=== PATIENT | male | born 1965 | race Caucasian/White ===

== ENCOUNTER 2021-09-23 07:14 | Inpatient (IN) | payer OTHER ==
[2021-09-23] MEDS ORDERED: SODIUM CHLORIDE 0.9% 1,000 ML IV STA (07:45)
[2021-09-23] MEDS ORDERED: SODIUM CHLORIDE 0.9% 500 ML 500 ML IV STA (07:45)
--- NOTE | 2021-09-23 07:52 | ED ---
Abdominal Pain HPI - General Chief Complaint: Abdominal Pain Stated Complaint: Constipation Time Seen by Provider: 09/23/21 07:26 Source: patient, RN notes reviewed Mode of arrival: ambulatory Limitations: no limitations - History of Present Illness Initial Comments: This a 55-year-old male presents emergency Department chief complaint abdominal pain. Patient states he had severe nausea and dizziness with the weekend. Patient states that resolved states has no appetite he's having increasing abdominal pain, distention. Patient states he feels very constipated he has been on MiraLAX with no relief. There is minimal that he does take pain meds bu t his been taking parents for over one year and said no constipation past. He denies any dysuria hematuria no fevers or chills no prior abdominal surgeries. Patient denies any chest pain or shortness breath at this time. - Related Data Home Medications Medication Instructions Recorded Confirmed HYDROcodone/APAP 7.5-325MG [[place] 1 tab PO QID 09/23/21 09/23/21 7.5-325] Losartan [Cozaar] 25 mg PO DAILY 09/23/21 09/23/21 Allergies Allergy/AdvReac Type Severity Reaction Status Date / Time No Known Allergies Allergy Verified 09/23/21 09:14 Review of Systems ROS Statement: Those systems with pertinent positive or pertinent negative responses have been documented in the HPI. ROS Other: All systems not noted in ROS Statement are negative. Past Medical History Past Medical History: Hypertension Additional Past Medical History / Comment(s): chronic back pain Past Surgical History: Back Surgery Past Psychological History: No Psychological Hx Reported Smoking Status: Never smoker Past Alcohol Use History: None Reported Past Drug Use History: Marijuana General Exam Limitations: no limitations General appearance: alert, in no apparent distress Head exam: Present: atraumatic, normocephalic, normal inspection Eye exam: Present: normal appearance, PERRL, EOMI. Absent: scleral icterus, conjunctival injection, periorbital swelling ENT exam: Present: normal exam, normal oropharynx, mucous membranes moist Neck exam: Present: normal inspection, full ROM. Absent: tenderness, meningismus, lymphadenopathy Respiratory exam: Present: normal lung sounds bilaterally. Absent: respiratory distress, wheezes, rales, rhonchi, stridor Cardiovascular Exam: Present: regular rate, normal rhythm, normal heart sounds. Absent: systolic murmur, diastolic murmur, rubs, gallop, clicks GI/Abdominal exam: Present: soft, tenderness, normal bowel sounds. Absent: distended, guarding, rebound, rigid Back exam: Absent: CVA tenderness (R), CVA tenderness (L) Neurological exam: Present: alert, oriented X3 Skin exam: Present: warm, dry, intact, normal color. Absent: rash Course Vital Signs 09/23/21 09/23/21 09/23/21 07:15 07:38 10:10 Temperature 98.1 F Pulse Rate 14 L 69 75 Respiratory 18 18 18 Rate Blood Pressure 128/89 152/108 134/83 O2 Sat by Pulse 97 97 98 Oximetry Medical Decision Making - Medical Decision Making 55-year-old presented for vague abdominal complaints. Patient CT shows probable metastatic cancer patient has no of history cancer. Patient be admitted for further workup and evaluation. - Lab Data Result diagrams: 09/23/21 07:53 09/23/21 07:53 Lab Results 09/23/21 09/23/21 09/23/21 Range/Units 07:53 07:53 07:53 WBC 8.5 (3.8-10.6) k/uL RBC 4.90 (4.30-5.90) m/uL Hgb 14.4 (13.0-17.5) gm/dL Hct 44.2 (39.0-53.0) % MCV 90.1 (80.0-100.0) fL MCH 29.3 (25.0-35.0) pg MCHC 32.5 (31.0-37.0) g/dL RDW 13.2 (11.5-15.5) % Plt Count 712 H (150-450) k/uL MPV 7.1 Neutrophils % 72 % Lymphocytes % 14 % Monocytes % 7 % Eosinophils % 3 % Basophils % 1 % Neutrophils # 6.1 (1.3-7.7) k/uL Lymphocytes # 1.2 (1.0-4.8) k/uL Monocytes # 0.6 (0-1.0) k/uL Eosinophils # 0.3 (0-0.7) k/uL Basophils # 0.1 (0-0.2) k/uL Sodium 137 (137-145) mmol/L Potassium 3.3 L (3.5-5.1) mmol/L Chloride 96 L (98-107) mmol/L Carbon Dioxide 30 (22-30) mmol/L Anion Gap 11 mmol/L BUN 10 (9-20) mg/dL Creatinine 1.08 (0.66-1.25) mg/dL Est GFR (CKD-EPI)AfAm 88 (>60 ml/min/1.73 sqM) Est GFR (CKD-EPI)NonAf 76 (>60 ml/min/1.73 sqM) Glucose 112 H (74-99) mg/dL Plasma Lactic Acid True (0.7-2.0) mmol/L Calcium 9.3 (8.4-10.2) mg/dL Total Bilirubin 0.8 (0.2-1.3) mg/dL AST 99 H (17-59) U/L ALT 36 (4-49) U/L Alkaline Phosphatase 481 H (38-126) U/L Total Protein 6.9 (6.3-8.2) g/dL Albumin 3.9 (3.5-5.0) g/dL Amylase 63 (30-110) U/L Lipase 48 (23-300) U/L Urine Color Dark Yellow Urine Appearance Cloudy (Clear) Urine pH 5.5 (5.0-8.0) Ur Specific [place] 1.035 (1.001-1.035) Urine Protein 1+ H (Negative) Urine Glucose (UA) Negative (Negative) Urine Ketones Negative (Negative) Urine Blood Negative (Negative) Urine Nitrite Negative (Negative) Urine Bilirubin 1+ H (Negative) Urine Urobilinogen 4.0 (<2.0) mg/dL Ur Leukocyte Esterase Negative (Negative) Urine RBC 1 (0-5) /hpf Urine WBC 2 (0-5) /hpf Ur Squamous Epith Cells 1 (0-4) /hpf Hyaline Casts 9 H (0-2) /lpf Urine Mucus Many H (None) /hpf 09/23/21 Range/Units 07:53 WBC (3.8-10.6) k/uL RBC (4.30-5.90) m/uL Hgb (13.0-17.5) gm/dL Hct (39.0-53.0) % MCV (80.0-100.0) fL MCH (25.0-35.0) pg MCHC (31.0-37.0) g/dL RDW (11.5-15.5) % Plt Count (150-450) k/uL MPV Neutrophils % % Lymphocytes % % Monocytes % % Eosinophils % % Basophils % % Neutrophils # (1.3-7.7) k/uL Lymphocytes # (1.0-4.8) k/uL Monocytes # (0-1.0) k/uL Eosinophils # (0-0.7) k/uL Basophils # (0-0.2) k/uL Sodium (137-145) mmol/L Potassium (3.5-5.1) mmol/L Chloride (98-107) mmol/L Carbon Dioxide (22-30) mmol/L Anion Gap mmol/L BUN (9-20) mg/dL Creatinine (0.66-1.25) mg/dL Est GFR (CKD-EPI)AfAm (>60 ml/min/1.73 sqM) Est GFR (CKD-EPI)NonAf (>60 ml/min/1.73 sqM) Glucose (74-99) mg/dL Plasma Lactic Acid True 2.0 (0.7-2.0) mmol/L Calcium (8.4-10.2) mg/dL Total Bilirubin (0.2-1.3) mg/dL AST (17-59) U/L ALT (4-49) U/L Alkaline Phosphatase (38-126) U/L Total Protein (6.3-8.2) g/dL Albumin (3.5-5.0) g/dL Amylase (30-110) U/L Lipase (23-300) U/L Urine Color Urine Appearance (Clear) Urine pH (5.0-8.0) Ur Specific [place] (1.001-1.035) Urine Protein (Negative) Urine Glucose (UA) (Negative) Urine Ketones (Negative) Urine Blood (Negative) Urine Nitrite (Negative) Urine Bilirubin (Negative) Urine Urobilinogen (<2.0) mg/dL Ur Leukocyte Esterase (Negative) Urine RBC (0-5) /hpf Urine WBC (0-5) /hpf Ur Squamous Epith Cells (0-4) /hpf Hyaline Casts (0-2) /lpf Urine Mucus (None) /hpf Disposition Clinical Impression: Metastatic cancer, Hepatic carcinoma, Intractable pain Disposition: ADMITTED IP TO THIS [facility] Condition: Fair Referrals: Nonstaff,Physician [Primary Care Provider] - 1-2 days Time of Disposition: 10:16
[2021-09-23 08:11] LABS: Basophils # (A) 0.1 k/uL (0-0.2); Basophils % (A) 1 %; Eosinophils # (A) 0.3 k/uL (0-0.7); Eosinophils % (A) 3 %; HCT 44.2 % (39.0-53.0); HGB 14.4 gm/dL (13.0-17.5); Lymphocytes # (A) 1.2 k/uL (1.0-4.8); Lymphocytes % (A) 14 %; MCH 29.3 pg (25.0-35.0); MCHC 32.5 g/dL (31.0-37.0); MCV 90.1 fL (80.0-100.0); Mean Platelet Volume 7.1; Monocytes # (A) 0.6 k/uL (0-1.0); Monocytes % (A) 7 %; Neutrophils # (A) 6.1 k/uL (1.3-7.7); Neutrophils % (A) 72 %; Platelet Count 712 k/uL (150-450); RDW 13.2 % (11.5-15.5); WBC 8.5 k/uL (3.8-10.6)
[2021-09-23 08:30] LABS: Albumin 3.9 g/dL (3.5-5.0); Appearance,Urine Cloudy (Clear); Bilirubin,Urine 1+ (Negative); Blood,Urine Negative (Negative); Calcium 9.3 mg/dL (8.4-10.2); Color,Urine Dark Yellow; Glucose,Urine (UA) Negative (Negative); Hyaline Casts,Urine 9 /lpf (0-2); Ketones,Urine Negative (Negative); Leukocyte Esterase,Urine Negative (Negative); Mucus,Urine Many /hpf; Nitrite,Urine Negative (Negative); PH, Urine 5.5 (5.0-8.0); Potassium 3.3 mmol/L (3.5-5.1); Protein,Urine 1+ (Negative); RBC,Urine 1 /hpf (0-5); Specific Gravity,Urine 1.035 (1.001-1.035); Squamous Epithelial Cell,Urine 1 /hpf (0-4); Total Bilirubin 0.8 mg/dL (0.2-1.3); Total Protein 6.9 g/dL (6.3-8.2); WBC,Urine 2 /hpf (0-5)
--- NOTE | 2021-09-23 08:45 | CT ---
EXAMINATION TYPE: CT abdomen pelvis wo con DATE OF EXAM: 09/23/2021 COMPARISON: None available HISTORY: Abdominal pain CT DLP: 447.8 mGycm Automated exposure control for dose reduction was used. TECHNIQUE: Helical acquisition of images was performed from the lung bases through the pelvis. FINDINGS: LUNG BASES: No significant abnormality is appreciated. LIVER/GB: Multiple variable sized hepatic focal lesions, highly concerning for extensive hepatic meta static disease. The largest conglomerate is seen in the left hepatic lobe measuring up to 11.3 cm. No dular outline of the liver which may suggest hepatic cirrhosis. Grossly unremarkable gallbladder. PANCREAS: Fatty infiltration of the pancreatic head. SPLEEN: No significant abnormality is seen. ADRENALS: No significant abnormality is seen. KIDNEYS: Grossly unremarkable kidneys. FREE AIR: No free air is visualized RETROPERITONEAL ADENOPATHY: Enlarged superior retroperitoneal lymph nodes measuring up to 11 mm. REPRODUCTIVE ORGANS: No significant abnormality is seen URINARY BLADDER: Markedly thickened urinary bladder wall with heterogeneity within. Underlying lesio n can't be excluded. Recommend correlation with urinalysis results including cytology. PELVIC ADENOPATHY: No pathologically enlarged pelvic lymph nodes. OSSEOUS STRUCTURES: L1 vertebral body collapse with suspected previous vertebroplasty of L1, please correlate clinically. No gross aggressive bone lesion. BOWEL: Questionable thickening of the gastroesophageal junction with significant lymphadenopathy at that location and along the gastrohepatic ligament measuring up to 2 cm in short axis diameter. No ev idence of gastric obstruction. Grossly unremarkable duodenum and small bowel. Scattered short segment s of mild colonic wall thickening, nonspecific. Recommend correlation with colonoscopy results. Otilia l appendix. OTHER: Increased densities along the left spermatic cord in the inguinal region, this could be due to prominent veins however metastatic nodules cannot be excluded. Scattered arterial atherosclerotic ca lcification. No sizable ascites. IMPRESSION: Multiple hepatic focal lesions consistent with hepatic metastatic disease. Slightly nodular outline o f the liver which may suggest hepatic cirrhosis. Underlying hepatocellular carcinoma can't be exclude d, for correlation with liver function tests, hepatic viral serology and alpha-fetoprotein level. Slightly thickened gastroesophageal junction and the most proximal portion of the stomach with adjace nt significant lymphadenopathy at that location and along the gastrohepatic ligament. Underlying prim sergey cancer at that location cannot be excluded. Recommend correlation with gastroscopy results and fu rther workup including PET scan assessment and tissue diagnosis. Other incidental findings and recomm endations as described above.
[2021-09-23] MEDS ORDERED: POTASSIUM CHLORIDE ER 20 MEQ TAB.ER PO STA (10:16)
[2021-09-23] MEDS ORDERED: ONDANSETRON 4 MG/2 ML VIAL IVP PRN (10:16)
[2021-09-23] MEDS ORDERED: HYDROmorphone 0.5 MG/0.5 ML SYRINGE IVP PRN (10:16)
[2021-09-23] MEDS ORDERED: NALOXONE 0.4 MG/ML 1 ML VIAL IV PRN (10:16)
[2021-09-23] MEDS ORDERED: LACTULOSE 20 GM/30 ML CUP PO PRN (11:19)
[2021-09-23] MEDS: PANTOPRAZOLE 40 MG/10 ML VIAL IVP SCH (11:36)
[2021-09-23] MEDS: SODIUM CHLORIDE 0.9% 1,000 ML IV SCH (11:44)
[2021-09-23] MEDS ORDERED: PREGABALIN 75 MG CAP PO PRN (11:51)
--- NOTE | 2021-09-23 12:03 | P.HPIM ---
History of Present Illness Pleasant 55-year-old male came in with complaints of epigastric abdominal discomfort nonspecific 6 tested in severity. 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 Patient had a CT of the abdomen which showed incidental finding of multiple masses in the liver along with a significant thickening of gastroesophageal junction, concerning for possible malignancy patient denied any history of gastroesophageal reflux disease, denied any smoking history. Patient is tearful, anxious because of these findings. REVIEW OF SYSTEMS: CONSTITUTIONAL: No fever, no malaise, no fatigue. HEENT: No recent visual problems or hearing problems. Denied any sore throat. CARDIOVASCULAR: No chest pain, orthopnea, PND, no palpitations, no syncope. PULMONARY: No shortness of breath, no cough, no hemoptysis. GASTROINTESTINAL: No diarrhea, no nausea, no vomiting. NEUROLOGICAL: No headaches, no weakness, no numbness. HEMATOLOGICAL: Denies any bleeding or petechiae. GENITOURINARY: Denies any burning micturition, frequency, or urgency. MUSCULOSKELETAL/RHEUMATOLOGICAL: Denies any joint pain, swelling, or any muscle pain. ENDOCRINE: Denies any polyuria or polydipsia. The rest of the 14-point review of systems is negative. PHYSICAL EXAMINATION: GENERAL: The patient is alert and oriented x3, not in any acute distress. Well developed, well nourished. HEENT: Pupils are round and equally reacting to light. EOMI. No scleral icterus. No conjunctival pallor. Normocephalic, atraumatic. No pharyngeal erythema. No thyromegaly. CARDIOVASCULAR: S1 and S2 present. No murmurs, rubs, or gallops. PULMONARY: Chest is clear to auscultation, no wheezing or crackles. ABDOMEN: Soft, nontender, nondistended, normoactive bowel sounds. No palpable organomegaly. MUSCULOSKELETAL: No joint swelling or deformity. EXTREMITIES: No cyanosis, clubbing, or pedal edema. NEUROLOGICAL: Gross neurological examination did not reveal any focal deficits. SKIN: No rashes. Assessment and plan -The epigastric abdominal pain patient has nonspecific abdominal pain may be related to gastritis or can be related to cancer mass. Pain management with 10 mg of [place] -Constipation secondary to opiates, will order senna lactulose as needed for constipation -Hypertension resume losartan -Incidental finding of metastatic lesions to the liver: Oncology was consulted -Thickening of gastroesophageal junction: Consult gastroenterology for possible biopsy -Hypokalemia potassium will be replaced -Dehydration mild acute renal failure secondary to poor by mouth intake continue with IV fluids. Replace electrolytes - DVT prophylaxis: Lovenox Past Medical History Past Medical History: Hypertension Additional Past Medical History / Comment(s): chronic back pain Past Surgical History: Back Surgery Past Psychological History: No Psychological Hx Reported Smoking Status: Never smoker Past Alcohol Use History: None Reported Past Drug Use History: Marijuana Medications and Allergies Home Medications Medication Instructions Recorded Confirmed Type HYDROcodone/APAP 7.5-325MG [[place] 1 tab PO QID 09/23/21 09/23/21 History 7.5-325] Losartan [Cozaar] 25 mg PO DAILY 09/23/21 09/23/21 History Allergies Allergy/AdvReac Type Severity Reaction Status Date / Time No Known Allergies Allergy Verified 09/23/21 09:14 Physical Exam Vitals: Vital Signs Temp Pulse Resp BP Pulse Ox 09/23/21 11:44 62 18 134/89 96 09/23/21 10:10 75 18 134/83 98 09/23/21 07:38 69 18 152/108 97 09/23/21 07:15 98.1 F 14 L 18 128/89 97 Intake and Output 09/22/21 09/23/21 09/23/21 22:59 06:59 14:59 Other: Weight 73.028 kg Results CBC & Chem 7: 09/23/21 07:53 09/23/21 07:53 Labs: Abnormal Lab Results - Last 24 Hours (Table) 09/23/21 09/23/21 09/23/21 Range/Units 07:53 07:53 07:53 Plt Count 712 H (150-450) k/uL Potassium 3.3 L (3.5-5.1) mmol/L Chloride 96 L (98-107) mmol/L Glucose 112 H (74-99) mg/dL AST 99 H (17-59) U/L Alkaline Phosphatase 481 H (38-126) U/L Urine Protein 1+ H (Negative) Urine Bilirubin 1+ H (Negative) Hyaline Casts 9 H (0-2) /lpf Urine Mucus Many H (None) /hpf
[2021-09-23 14:54] LABS: Hepatitis A Antibody IgM Nonreactive (Nonreactive); Hepatitis B Core IgM Nonreactive (Nonreactive); Hepatitis B Surface Antigen Nonreactive (Nonreactive); Hepatitis C IgG Antibody Nonreactive (Nonreactive)
[2021-09-23] MEDS: HYDROcodone/APAP 10-325MG 1 EACH TAB PO PRN ×2 (15:13→20:03)
[2021-09-23] MEDS ORDERED: PEG 3350-NA SULF,BICARB,CL/KCL 4,000 ML BOTTLE PO ONE (16:00)
[2021-09-23] MEDS: HYDROmorphone 0.5 MG/0.5 ML SYRINGE IVP PRN ×2 (16:25→21:53)
--- NOTE | 2021-09-23 16:54 | P.CONS ---
History of Present Illness - Reason for Consult Consult date: 09/23/21 Endoscopy for possible esophageal cancer Requesting physician: Krystina Gaitan - Chief Complaint abdominal pain, constipation - History of Present Illness This is a pleasant 55-year-old male who presented to the emergency department with complaints of abdominal pain and constipation over the last 2 weeks duration. Patient denies any significant medical history other than high blood pressure and chronic back pain and leg pain. He does take [place] for chronic pain and was scheduled to have an MRI done this Thursday to follow-up with a back surgeon. He states the pain was getting significant worse in the epigastric region he's had a decreased appetite as well over the last 2 weeks and came in for further evaluation. He had a CT of the abdomen and pelvis without contrast that showed multiple hepatic focal lesions consistent with hepatic metastatic disease. Slightly nodular outline of the liver which may suggest hepatic cirrhosis. Underlying hepatocellular carcinoma cannot be excluded. Slightly thickened gastroesophageal junction and the most proximal p ortion of the stomach with adjacent significant lymphadenopathy at that location along the gastrohepatic ligament. Underlying primary cancer at that location cannot be excluded. Recommend correlation with gastroscopy results further workup including PET scan assessments and tissue diagnosis. Gastroenterology was consulted for endoscopy to evaluate for possible esophageal cancer. He states he has had a colonoscopy approximately 7 years ago done in [place] he states at that time it was clear. He believes he may have had an EGD remote past. Denies any previous histories of ulcers. States that he gets occasional heartburn. Denies any nausea or vomiting. Does believe these had some weight loss due to decreased appetite however unsure of amount. Denies any previous history of alcohol abuse. Denies any history of underlying liver disease. Admitting labs WBC 8.5 hemoglobin 14 hematocrit 44 platelet count 712,000, sodium 137 potassium 3.3 BUN 10 creatinine 1.08 total bilirubin 0.8 AST 99 AST 36 alkaline phosphatase 481 tumor marker AFP 3.8 Review of Systems REVIEW OF SYSTEMS: CARDIOPULMONARY: No chest pain or shortness of breath. Gastrointestinal: Severe stabbing pain in the epigastric region. Decreased appetite with weight loss. No nausea or vomiting. No hematemesis, coffee- ground emesis. No rectal bleeding, or melena. Constipation, no bowel movement 2 weeks. GENITOURINARY: No dysuria or hematuria. MUSCULOSKELETAL: Reports normal range of motion., Joint pain. SKIN: No rashes. No jaundice. ENDOCRINE: No chills, fevers. Decreased appetite with weight loss. No polydipsia or polyuria. PSYCHIATRIC: Unremarkable. NEUROLOGY: No change in mental status. Denies dizziness, headache. ENT: Vision unremarkable. CONSTITUTIONAL: No recent weight loss. No fever, chills, night sweats. Past Medical History Past Medical History: Hypertension Additional Past Medical History / Comment(s): chronic back pain Past Surgical History: Back Surgery Past Psychological History: No Psychological Hx Reported Smoking Status: Never smoker Past Alcohol Use History: None Reported Past Drug Use History: Marijuana Medications and Allergies Home Medications Medication Instructions Recorded Confirmed Type HYDROcodone/APAP 7.5-325MG [[place] 1 tab PO QID 09/23/21 09/23/21 History 7.5-325] Losartan [Cozaar] 25 mg PO DAILY 09/23/21 09/23/21 History Allergies Allergy/AdvReac Type Severity Reaction Status Date / Time No Known Allergies Allergy Verified 09/23/21 09:14 Physical Exam Vitals: Vital Signs Temp Pulse Resp BP Pulse Ox 09/23/21 10:10 75 18 134/83 98 09/23/21 07:38 69 18 152/108 97 09/23/21 07:15 98.1 F 14 L 18 128/89 97 Intake and Output 09/22/21 09/23/21 09/23/21 22:59 06:59 14:59 Other: Weight 73.028 kg General appearance: The patient is alert, oriented, appears in no acute distress. HET: Head is normocephalic and atraumatic. Conjunctiva pink. Sclera anicteric. Neck: Supple without lymphadenopathy. Trachea midline. Heart: S1 S2. Regular rate and rhythm. Lungs: Clear to auscultation. Abdomen: Soft, epigastric tenderness, nondistended with bowel sounds. No guarding or rigidity. Skin: No rashes. No jaundice. Extremities: Normal skin color and turgor. No pedal edema. Neurological: No focal deficits. Alert and oriented x3. Results CBC & Chem 7: 09/23/21 07:53 09/23/21 07:53 Labs: Abnormal Lab Results - Last 24 Hours (Table) 09/23/21 09/23/21 09/23/21 Range/Units 07:53 07:53 07:53 Plt Count 712 H (150-450) k/uL Potassium 3.3 L (3.5-5.1) mmol/L Chloride 96 L (98-107) mmol/L Glucose 112 H (74-99) mg/dL AST 99 H (17-59) U/L Alkaline Phosphatase 481 H (38-126) U/L Urine Protein 1+ H (Negative) Urine Bilirubin 1+ H (Negative) Hyaline Casts 9 H (0-2) /lpf Urine Mucus Many H (None) /hpf Comments: CT of the abdomen and pelvis without contrast that showed multiple hepatic focal lesions consistent with hepatic metastatic disease. Slightly nodular outline of the liver which may suggest hepatic cirrhosis. Underlying hepatocellular carcinoma cannot be excluded. Slightly thickened gastroesophageal junction and the most proximal portion of the stomach with adjacent significant lymphadenopathy at that location along the gastrohepatic ligament. Underlying primary cancer at that location cannot be excluded. Recommend correlation with gastroscopy results further workup including PET scan assessments and tissue diagnosis. Assessment and Plan (1) Epigastric pain Narrative/Plan: 25-year-old male with no significant past medical history who presented to the emergency department with complaints of epigastric abdominal pain with constipation over the last 2 weeks duration. Patient states he's had decreased appetite he does have a history of chronic pain with his back and lower extremities and was going to be seeing a back surgeon. He does take [place] and does have some occasional constipation however never goes past for 5 days for bowel movement. States he's not had a bowel movement in 2 weeks. He's had severe stabbing pains in the epigastric region. No nausea or vomiting but again has had a decreased appetite and weight loss. He has had a prior EGD and col onoscopy. He states his EGD was remote, colonoscopy was approximately 7 years ago done in [place] and he states that it was a normal finding. He denies any previous history of liver disease. Denies any history of hepatitis, alcohol abuse or history of fatty liver disease. He had a CT of the abdomen and pelvis concerning for multiple liver lesions possible metastatic disease. CT also showed thickened gastroesophageal junction and most proximal portion of the stomach with adjacent significant lymphadenopathy that location and along the gastrohepatic ligament. Will proceed with EGD and colonoscopy with biopsies. Oncology on consult. Patient with normal AFP 3.8 Current Visit: Yes Status: Acute Code(s): R10.13 - EPIGASTRIC PAIN SNOMED Code(s): 87663908 (2) Constipation Current Visit: Yes Status: Acute Code(s): K59.00 - CONSTIPATION, UNSPECIFIED SNOMED Code(s): 10584387 (3) Abdominal pain Current Visit: Yes Status: Acute Code(s): R10.9 - UNSPECIFIED ABDOMINAL PAIN SNOMED Code(s): 50323313 (4) Liver lesion Narrative/Plan: oncology on consult. Proceeding with EGD and colonoscopy with biopsies. May consider liver biopsy. Current Visit: Yes Status: Acute Code(s): K76.9 - LIVER DISEASE, UNSPECIFIED SNOMED Code(s): 223049140 Plan: 1. Continue symptomatic and supportive care 2. Clear liquid diet, nothing by mouth after midnight 3. Protonix 40 mg twice a day 4. Bowel prep this evening 5. Will proceed with EGD and colonoscopy tomorrow. Procedure discussed with patient including risks and benefits. Patient willing to proceed. 6. Oncology on consult, appreciate their recommendations Thank you for this consultation, we will continue to follow. Dr. Inge Hilton I agree with the dictator's note, documented as a scribe by Nayeli Okeefe.
[2021-09-24] MEDS: HYDROmorphone 0.5 MG/0.5 ML SYRINGE IVP PRN ×4 (01:06→18:52)
[2021-09-24] MEDS: SODIUM CHLORIDE 0.9% 1,000 ML IV SCH ×2 (02:08→22:25)
[2021-09-24] MEDS: ENOXAPARIN 40 MG/0.4 ML SYRINGE SQ SCH (08:34)
[2021-09-24] MEDS: HYDROcodone/APAP 10-325MG 1 EACH TAB PO PRN ×2 (08:36→16:39)
[2021-09-24] MEDS: LOSARTAN 25 MG TAB PO SCH (08:36)
[2021-09-24] MEDS: PANTOPRAZOLE 40 MG/10 ML VIAL IVP SCH (08:37)
[2021-09-24] MEDS ORDERED: IV FLUID CONTINUATION 900 ML IV ONE (11:22)
[2021-09-24] MEDS ORDERED: PROPOFOL 10 MG/ML 20 ML VIAL IV ONE (11:24)
[2021-09-24] MEDS ORDERED: LIDOCAINE 2% INJ 20 MG/ML (2 ML VIAL) ONE (11:24)
--- NOTE | 2021-09-24 11:53 | P.PCN ---
Date of Procedure: 09/24/21 Procedure(s) Performed: Brief history: Patient is a pleasant 56-year-old white male admitted hospital with severe epigastric pain for the last 1 week duration. He has CT of the the abdomen and pelvis done yesterday that showed multiple lesions in the liver suspicious for metastasis and thickening of the GE junction Procedure performed: Esophagogastroduodenoscopy with biopsy Colonoscopy with snare polypectomy Preoperative diagnosis: Epigastric pain/multiple lesions in the liver suspicious for hepatic metastasis Change in bowel habits Anesthesia: MAC Procedure: After informed consent was obtained from the patient was brought into the endoscopy unit and IV sedation was administered by anesthesia under continuous monitoring. Initially upper endoscopy was done. The Olympus GF 160 video endoscope was inserted inserted into the mouth and esophagus intubated without any difficulty and was gradually advanced into the stomach and duodenum and carefully examined. The bulb and second part of the duodenum appeared normal. The scope was then withdrawn into the stomach adequately insufflated with air and upon careful examination the antrum and body, cardia and fundus appeared normal. The scope was then withdrawn into the esophagus. The GE junction was located at 40 cm to the incisors. There was a deep ulceration noted the GE junction and this extended into the distal esophageal ulcerated mass which was located at 38-40 cm from the incisors and multiple biopsies were done from the GE junction ulcer as well as from the distal esophageal mass. Rest of the esophagus appeared normal. Patient tolerated the procedure well. At this time the patient continued to remain sedation. Initial digital rectal examination was normal. Olympus CF 160 video colonoscope was then inserted into the rectum and gradually advanced to the cecum without any difficulty. Careful examination was performed as the scope was gradually being withdrawn. The prep was excellent. The cecum, ascending colon, transverse colon, descending colon, sigmoid colon and rectum appeared normal. There was a 5 mm polyp noted in the sigmoid colon was removed by snare polypectomy. Retroflexion was performed in the rectum and no lesions were noted. Patient tolerated the procedure well. Impression: 1. Upper endoscopy revealed ulcerated mass in the distal esophagus extending from 38-40 cm from the incisors and a deep GE junction ulcer status post multiple biopsies 2. Colonoscopy revealed 5 mm sigmoid polyp status post polypectomy Recommendations: Findings of this examination were discussed with the patient as well as his family. Await biopsy results. Diet will be advanced as tolerated. Obtain on cology consultation.
[2021-09-24 13:06] LABS: ALT 26 U/L (4-49); AST 82 U/L (17-59); African American GFR (CKD) >90 (>60 ml/min/1.73 sqM); Albumin 3.1 g/dL (3.5-5.0); Albumin/Globulin Ratio 1.2; Alkaline Phosphatase 327 U/L (38-126); Anion Gap 11 mmol/L; Blood Urea Nitrogen 7 mg/dL (9-20); Calcium 8.4 mg/dL (8.4-10.2); Carbon Dioxide 22 mmol/L (22-30); Chloride 104 mmol/L (98-107); Globulin 2.5 g/dL; Glucose 65 mg/dL (74-99); Non-African American GFR(CKD) >90 (>60 ml/min/1.73 sqM); Potassium 3.8 mmol/L (3.5-5.1); Sodium 137 mmol/L (137-145); Total Bilirubin 0.9 mg/dL (0.2-1.3); Total Protein 5.6 g/dL (6.3-8.2)
--- NOTE | 2021-09-24 16:19 | P.PN ---
Subjective Progress Note Date: 09/24/21 Pleasant 55-year-old male came in with complaints of epigastric abdominal discomfort nonspecific 6 tested in severity. Patient has been constipated for 2 weeks which is her main reason for patient to come to the hospital patient has been taking Clio that was prescribed by his picture painter for back pain because of the severe back pain patient has been taking this and has been constipated because of. Patient had a CT of the abdomen which showed incidental finding of multiple masses in the liver along with a significant thickening of gastroesophageal junction, concerning for possible malignancy patient denied any history of gastroesophageal reflux disease, denied any smoking history. Patient is tearful, anxious because of these findings. 09/24/2021 Patient evaluated today pending EGD/Colonoscopy. He resports ongoing epigastric discomfort. Endoscopy results reveal ulcerated mass in the distal esophagus extending from 38-40 cm from the incisors and a deep GE junction ulcer status post multiple biopsies. There is also a 5 mm sigmoid polyp that was removed. Acetaminophen to have improved up to 3.8, liver enzymes are stable. Hepatitis panel is nonreactive. Diet has been advanced, patient is pending consultation with oncology. He will be discharged tomorrow morning. He is afebrile, heart rate 78, blood pressure 124/68, 99% room air. Review of Systems Constitutional: Denied any fatigue denied any fever. Cardio vascular: denied any chest pain, palpitations Gastrointestinal: denied any nausea, vomiting, diarrhea, reports epigastric abdominal pain. Pulmonary: Denied any shortness of breath cough Neurologic denied any new focal deficits All inpatient medications were reviewed and appropriate changes in these medications as dictated in the interval history and assessment and plan. PHYSICAL EXAMINATION: GENERAL: The patient is alert and oriented x3, not in any acute distress. Well developed, well nourished. HEENT: Pupils are round and equally reacting to light. EOMI. No scleral icterus. No conjunctival pallor. Normocephalic, atraumatic. No pharyngeal erythema. No thyromegaly. CARDIOVASCULAR: S1 and S2 present. No murmurs, rubs, or gallops. PULMONARY: Chest is clear to auscultation, no wheezing or crackles. ABDOMEN: Soft, tender, nondistended, normoactive bowel sounds. No palpable organomegaly. MUSCULOSKELETAL: No joint swelling or deformity. EXTREMITIES: No cyanosis, clubbing, or pedal edema. NEUROLOGICAL: Gross neurological examination did not reveal any focal deficits. SKIN: No rashes. Assessment and plan -Epigastric abdominal pain most likely from esophageal mass pending biopsies, patient will see oncology in consultation and will discharge tomorrow to follow up outpatient with GI and oncology. -Constipation secondary to opiates, on bowel regimen -Hypertension resume losartan -Incidental finding of metastatic lesions to the liver: Oncology was consulted -Thickening of gastroesophageal junction: post endoscopy with biopsy taken of distal esophageal ulcerated mass -Hypokalemia, resolved after supplementation -Dehydration mild acute renal failure secondary to poor by mouth intake continue with IV fluids. Creatinine has improved down to 0.89. DVT prophylaxis: Lovenox Full Code Plan for discharge home tomorrow after evaluation by oncology. Continue protonix. The impression and plan of care has been dictated by Christiane Marroquin, Nurse Practitioner as directed. Dr. Kandy MD I have performed a history and physical examination and medical decision making of this patient, discussed the same with the dictator, and agree with the dictators assessment and plan as written, documented as a scribe. Based on total visit time, I have performed more than 50% of this visit. Objective - Vital Signs Vital signs: Vital Signs Temp 98.4 F 09/24/21 12:16 Pulse 64 09/24/21 12:16 Resp 16 09/24/21 12:16 BP 110/74 09/24/21 12:16 Pulse Ox 99 09/24/21 12:16 FiO2 Intake & Output 09/23/21 09/24/21 09/24/21 18:59 06:59 18:59 Intake Total 900 100 Balance 900 100 Weight 73.028 kg 73.028 kg Intake: IV 100 Intake, IV Titration 900 Amount Sodium Chloride 0.9% 1, 900 000 ml @ 75 mls/hr IV . [id number] SHIMON Rx#:[id number] Other: Voiding Method Toilet Toilet # Voids 2 - Labs CBC & Chem 7: 09/23/21 07:53 09/24/21 12:31 Assessment and Plan Time with Patient: Less than 30
[2021-09-24 16:47] VITALS: BMI 25.2
--- NOTE | 2021-09-24 19:35 | P.CONS ---
History of Present Illness - Reason for Consult Consult date: 09/24/21 liver lesions, esophageal thickening Requesting physician: Manish Caldera - Chief Complaint abdominal pain, constipation - History of Present Illness Mr Abarca is a pleasant 56-year-old male patient we have been asked to see due to abnormal findings on CT AP. Pt pesenting with abdominal pain/epigastric pain, constipation, nausea and vomiting over the last 2 weeks, subsequent loss of appetite, persistent, will feel pain radiating into the right axilla at times. Nothing is relieving the symptoms completely, supportive care is helping. Patient denied fevers, chills, sweats, difficulty swallowing, painful swallowing, not sure how much weight he has lost, he has had an EGD and colonoscopy about 15-18 years ago. He has a history of a broken xiphoid, he quit smoking 12 years ago, no personal history of cancer. Review of Systems 10 point review of systems is negative except as stated in HPI Past Medical History Past Medical History: Hypertension Additional Past Medical History / Comment(s): chronic back pain History of Any Multi-Drug Resistant Organisms: None Reported Past Surgical History: Back Surgery Past Psychological History: No Psychological Hx Reported Smoking Status: Never smoker Past Alcohol Use History: None Reported Past Drug Use History: Marijuana Medications and Allergies Home Medications Medication Instructions Recorded Confirmed Type HYDROcodone/APAP 7.5-325MG [[place] 1 tab PO QID 09/23/21 09/23/21 History 7.5-325] Losartan [Cozaar] 25 mg PO DAILY 09/23/21 09/23/21 History Allergies Allergy/AdvReac Type Severity Reaction Status Date / Time No Known Allergies Allergy Verified 09/23/21 09:14 Physical Exam Vitals: Vital Signs Temp Pulse Pulse Resp BP BP Pulse Ox 09/24/21 12:16 98.4 F 64 16 110/74 99 09/24/21 09:35 74 16 09/24/21 08:45 74 130/76 09/24/21 05:13 98 F 68 16 124/78 97 09/23/21 20:00 94 18 09/23/21 19:53 98.2 F 94 18 145/83 98 09/23/21 17:41 98.7 F 61 18 150/98 98 09/23/21 16:33 64 18 143/97 99 09/23/21 15:15 57 L 18 149/101 98 Intake and Output 09/23/21 09/24/21 09/24/21 22:59 06:59 14:59 Intake Total 900 100 Balance 900 100 Intake: IV 100 Intake, IV Titration 900 Amount Sodium Chloride 0.9% 1, 900 000 ml @ 75 mls/hr IV . [id number] SHIMON Rx#:[id number] Other: Voiding Method Toilet Toilet # Voids 2 Weight 73.028 kg - Constitutional General appearance: average body habitus, cooperative, no acute distress - EENT Eyes: anicteric sclerae, EOMI ENT: hearing grossly normal, normal oropharynx - Neck Neck: no lymphadenopathy - Respiratory Respiratory: bilateral: CTA - Cardiovascular Rhythm: regular Heart sounds: normal: S1, S2 Abnormal Heart Sounds: no systolic murmur, no diastolic murmur, no rub, no S3 Gallop, no S4 Gallop, no click, no other leg Peripheral Edema: bilateral: None - Gastrointestinal General gastrointestinal: no absent bowel sounds, no decreased bowel sounds, no distended, hepatomegaly (2 fingerbreadths below costal margin), no hyperactive bowel sounds, normal bowel sounds, no organomegaly, no rigid, no scaphoid, soft, no splenomegaly, no tenderness, no umbilical hernia, no ventral hernia - Integumentary Integumentary: normal - Neurologic Neurologic: CNII-XII intact - Musculoskeletal Musculoskeletal: strength equal bilaterally - Psychiatric Psychiatric: A&O x's 3, appropriate affect, intact judgment & insight Results CBC & Chem 7: 09/23/21 07:53 09/24/21 12:31 CT scan - abdomen: report reviewed CT scan - pelvis: report reviewed Assessment and Plan (1) Esophageal thickening Current Visit: Yes Status: Acute Priority: High Code(s): K22.89 - OTHER SPECIFIED DISEASE OF ESOPHAGUS SNOMED Code(s): 30836898 (2) Abdominal pain Current Visit: Yes Status: Acute Priority: High Code(s): R10.9 - UNSPECIFIED ABDOMINAL PAIN SNOMED Code(s): 25727053 (3) Liver lesion Current Visit: Yes Status: Acute Priority: High Code(s): K76.9 - LIVER DISEASE, UNSPECIFIED SNOMED Code(s): 662369133 Plan: Dr. Regalado revealed the concerning CT findings with the patient and his ex- at bedside. The lesions in the liver highly suspicious for malignancy. There is thickening in the esophagus suspicious as well. Patient has been prepped and e ndoscopy is planned for today. Explained that if nothing is found on EGD then biopsy of the liver will be pursued. Once there is tissue diagnosis prognosis and treatment options can be reviewed. Thronbocytosis: suspect iron deficiency, labs ordered. All patient questions answered to their satisfaction at this time. Will continue follow-up If malignancy confirmed, will plan for PET scan outpatient for staging. attests: I have seen and examined patient, performed H&P, developed impression and plan of care. Discussed with dictator. Agree with dictation documented as a scribe
[2021-09-24 20:43] VITALS: RESP 16
[2021-09-25] MEDS: HYDROmorphone 0.5 MG/0.5 ML SYRINGE IVP PRN ×3 (01:50→15:14)
[2021-09-25 05:43] VITALS: TEMP 98.1
[2021-09-25] MEDS ORDERED: PANTOPRAZOLE 40 MG TABLET PO SCH (07:30)
[2021-09-25] MEDS: LOSARTAN 25 MG TAB PO SCH (08:51)
[2021-09-25] MEDS: ENOXAPARIN 40 MG/0.4 ML SYRINGE SQ SCH (08:52)
[2021-09-25 10:35] LABS: % Iron Saturation 15.56 (15.00-50.00)
[2021-09-25] MEDS: SODIUM CHLORIDE 0.9% 1,000 ML IV SCH (11:36)
--- NOTE | 2021-09-25 12:33 | P.PN ---
Subjective Progress Note Date: 09/25/21 Dr. regalado has met with patient and family this am and discussed overall expected diagnosis, treatment and prognosis. Given this is a metastatic picture overall intent would be most likely palliative in nature. All questions answered and greater than 30minutes spent with patient and family Objective - Vital Signs Vital signs: Vital Signs Temp 98.1 F 09/25/21 02:00 Pulse 70 09/25/21 02:00 Resp 16 09/25/21 02:00 BP 136/87 09/25/21 02:00 Pulse Ox 96 09/25/21 02:00 FiO2 Intake & Output 09/24/21 09/25/21 09/25/21 18:59 06:59 18:59 Intake Total 340 900 Balance 340 900 Weight 73.028 kg Intake: IV 100 Intake, IV Titration 900 Amount Sodium Chloride 0.9% 1, 900 000 ml @ 75 mls/hr IV . [id number] SHIMON Rx#:[id number] Oral 240 Other: Voiding Method Toilet Toilet Toilet # Voids 4 - Exam - Constitutional General appearance: average body habitus, cooperative, no acute distress - EENT Eyes: anicteric sclerae, EOMI ENT: hearing grossly normal, normal oropharynx - Neck Neck: no lymphadenopathy - Respiratory Respiratory: bilateral: CTA - Cardiovascular Rhythm: regular Heart sounds: normal: S1, S2 Abnormal Heart Sounds: no systolic murmur, no diastolic murmur, no rub, no S3 Gallop, no S4 Gallop, no click, no other leg Peripheral Edema: bilateral: None - Gastrointestinal General gastrointestinal: no absent bowel sounds, no decreased bowel sounds, no distended, hepatomegaly (2 fingerbreadths below costal margin), no hyperactive bowel sounds, normal bowel sounds, no organomegaly, no rigid, no scaphoid, soft, no splenomegaly, no tenderness, no umbilical hernia, no ventral hernia - Integumentary Integumentary: normal - Neurologic Neurologic: CNII-XII intact - Musculoskeletal Musculoskeletal: strength equal bilaterally - Psychiatric Psychiatric: A&O x's 3, appropriate affect, intact judgment & insight - Labs CBC & Chem 7: 09/23/21 07:53 09/24/21 12:31 Labs: Abnormal Lab Results - Last 24 Hours (Table) 09/24/21 09/25/21 Range/Units 12:31 05:29 BUN 7 L (9-20) mg/dL Glucose 65 L (74-99) mg/dL Iron 32 L (65-175) ug/dL TIBC 204 L (228-460) ug/dL Transferrin 146.0 L (204.0-354.0) mg/dL Ferritin 1056.0 H (22.0-322.0) ng/mL AST 82 H (17-59) U/L Alkaline Phosphatase 327 H (38-126) U/L Total Protein 5.6 L (6.3-8.2) g/dL Albumin 3.1 L (3.5-5.0) g/dL Vitamin B12 1247.0 H (200.0-944.0) pg/mL Assessment and Plan Plan: CT scan - abdomen: report reviewed CT scan - pelvis: report reviewed Assessment and Plan (1) Esophageal thickening Current Visit: Yes Status: Acute Priority: High Code(s): K22.89 - OTHER SPECIFIED DISEASE OF ESOPHAGUS SNOMED Code(s): 54487216 (2) Abdominal pain Current Visit: Yes Status: Acute Priority: High Code(s): R10.9 - UNSPECIFIED ABDOMINAL PAIN SNOMED Code(s): 78550453 (3) Liver lesion Current Visit: Yes Status: Acute Priority: High Code(s): K76.9 - LIVER DISEASE, UNSPECIFIED SNOMED Code(s): 399147178 Plan: Dr. Regalado revealed the concerning CT findings with the patient and his ex- at bedside yesterday and had a further detailed discussion this am with patient and family. . The lesions in the liver highly suspicious for malignancy. There is thickening in the esophagus suspicious as well. He is status post endoscopy and pathology is pending. There was an ulcerated tumor found during EGD. All patient questions answered to their satisfaction at this time. Will continue follow-up We will plan for PET scan outpatient for staging. He does complain of lower back pain that radiatiates unilateral therefore an MRI of LS Spine has been ordered to further evaluate Dr. Mahmood: I have completed the full history and physical and developed the above impression and plan, agree with dictation, dictated as a ascribe.
[2021-09-25] MEDS: HYDROcodone/APAP 10-325MG 1 EACH TAB PO PRN (12:52)
--- NOTE | 2021-09-25 14:40 | P.PN ---
Subjective Progress Note Date: 09/25/21 Principal diagnosis: Epigastric pain, esophageal mass 56-year-old male who presented to the emergency department with complaints of epigastric pain pain with swallowing and weight loss. Yesterday he underwent EGD with findings of a 2 cm ulcerated mass in the distal esophagus. He also underwent colonoscopy that revealed a 5 mm sigmoid polyp status post polypectomy. Oncology is on consult, awaiting their recommendations. Patient was eating breakfast this morning and did complain of a little discomfort with it going down especially his meat. No nausea or vomiting. He denies any blood in the stool or black stool. Patient has been afebrile. Objective - Vital Signs Vital signs: Vital Signs Temp 98.1 F 09/25/21 02:00 Pulse 70 09/25/21 02:00 Resp 16 09/25/21 02:00 BP 136/87 09/25/21 02:00 Pulse Ox 96 09/25/21 02:00 FiO2 Intake & Output 09/24/21 09/25/21 09/25/21 18:59 06:59 18:59 Intake Total 340 900 Balance 340 900 Weight 73.028 kg Intake: IV 100 Intake, IV Titration 900 Amount Sodium Chloride 0.9% 1, 900 000 ml @ 75 mls/hr IV . [id number] SHIMON Rx#:[id number] Oral 240 Other: Voiding Method Toilet Toilet Toilet # Voids 4 - Exam General appearance: The patient is alert, oriented, appears in no acute distress. HET: Head is normocephalic and atraumatic. Conjunctiva pink. Sclera anicteric. Neck: Supple without lymphadenopathy. Abdomen: Soft, epigastric tenderness, nondistended with bowel sounds. No guarding or rigidity. Extremities: Normal skin color and turgor. No pedal edema Skin: No rashes, no jaundice Neurological: No focal deficits. Alert and oriented -3. - Labs CBC & Chem 7: 09/23/21 07:53 09/24/21 12:31 Labs: Abnormal Lab Results - Last 24 Hours (Table) 09/25/21 Range/Units 05:29 Iron 32 L (65-175) ug/dL TIBC 204 L (228-460) ug/dL Transferrin 146.0 L (204.0-354.0) mg/dL Ferritin 1056.0 H (22.0-322.0) ng/mL Vitamin B12 1247.0 H (200.0-944.0) pg/mL Assessment and Plan (1) Epigastric pain Narrative/Plan: 25-year-old male with no significant past medical history who presented to the emergency department with complaints of epigastric abdominal pain with constip ation over the last 2 weeks duration. Patient states he's had decreased appetite he does have a history of chronic pain with his back and lower extremities and was going to be seeing a back surgeon. He does take [place] and does have some occasional constipation however never goes past for 5 days for bowel movement. States he's not had a bowel movement in 2 weeks. He's had severe stabbing pains in the epigastric region. No nausea or vomiting but again has had a decreased appetite and weight loss. He has had a prior EGD and colonoscopy. He states his EGD was remote, colonoscopy was approximately 7 years ago done in [place] and he states that it was a normal finding. He denies any previous history of liver disease. Denies any history of hepatitis, alcohol abuse or history of fatty liver disease. He had a CT of the abdomen and pelvis concerning for multiple liver lesions possible metastatic disease. CT also showed thickened gastroesophageal junction and most proximal portion of the stomach with adjacent significant lymphadenopathy that location and along the gastrohepatic ligament. Will proceed with EGD and colonoscopy with biopsies. Oncology on consult. Patient with normal AFP 3.8 Current Visit: Yes Status: Acute Code(s): R10.13 - EPIGASTRIC PAIN SNOMED Code(s): 50276719 (2) Esophageal mass Narrative/Plan: EGD and colonoscopy performed 09/24/2021. EGD with findings of ulcerated mass in the distal esophagus measuring 2 cm. Colonoscopy revealed 5 mm sigmoid polyp status post polypectomy. Oncology on consult, they are recommending PET scan in outpatient setting for staging. Also have discussed palliative care with the patient as they're suspecting metastatic disease. Current Visit: Yes Status: Acute Code(s): K22.89 - OTHER SPECIFIED DISEASE OF ESOPHAGUS SNOMED Code(s): 557491599 (3) Constipation Current Visit: Yes Status: Acute Code(s): K59.00 - CONSTIPATION, UNSPECIFIED SNOMED Code(s): 86451387 (4) Abdominal pain Current Visit: Yes Status: Acute Priority: High Code(s): R10.9 - UNSPECIFIED ABDOMINAL PAIN SNOMED Code(s): 42449104 (5) Liver lesion Narrative/Plan: oncology on consult. Proceeding with EGD and colonoscopy with biopsies. May consider liver biopsy. Current Visit: Yes Status: Acute Priority: High Code(s): K76.9 - LIVER DISEASE, UNSPECIFIED SNOMED Code(s): 399291209 Plan: 1. Continue symptomatic and supportive care 2. Protonix 40 mg daily 3. Diet as tolerated, recommend more of a soft diet 4. Oncology on consult, appreciate their recommendations 5. Patient is cleared for discharge from a gastroenterology standpoint with follow-up with oncology Thank you for this consultation, we will sign off at this time. Dr. Inge Hilton I agree with the dictator's note, documented as a scribe by Nayeli Okeefe.
--- NOTE | 2021-09-25 16:08 | MR ---
EXAMINATION TYPE: MR lumbar spine wo/w con DATE OF EXAM: 09/25/2021 COMPARISON: CT abdomen and pelvis September 23, 2021 HISTORY: Lower back pain, evaluate for metastatic disease. TECHNIQUE: Multiplanar, multisequence images of the lumbar spine is performed without and with IV contrast, util izing 7 mL intravenous Gadavist FINDINGS: Sagittal images of the lumbar spine show stable alignment with reverse curvature centered a t L1 level. Persistent moderate height loss greatest anteriorly with low signal from vertebroplasty i nvolving the L1 vertebra extending into the T12-L1 disc space. Multilevel disc desiccation is seen. Disc space heights are maintained. The conus medullaris is normal in position and signal ending mid L 1 level. The bone marrow signal intensity is within normal limits. No abnormal enhancement to sugges t osseous metastatic disease. Axial images at T12-L1 and L1-L2 levels show mild to moderate broad-based posterior disc protrusions mildly effacing anterior thecal sac. Bilateral neural foramina are patent. Axial images at L2-L3 level show moderate broad disc bulge mildly effacing the anterior thecal sac wi th mild bilateral anterior inferior neural foraminal narrowing. Axial images at L3-L4 level show moderate broad disc bulge with large left paracentral disc protrusio n effacing left anterolateral thecal sac and left lateral recess with mild to moderate left greater t silva right bilateral anterior inferior neural foraminal narrowing. Effacement of central left L4 nerve needs to be considered. For reference axial image 14. Axial images at L4-L5 and L5-S1 levels show mild to moderate facet arthropathy. Spinal canal is prese rved. Bilateral neural foramina are patent. Partial visualization of heterogeneous liver corresponding to diffuse metastatic disease seen better on recent CT. IMPRESSION: There is no abnormal bone marrow signal or suspicious enhancement to suggest osseous meta static disease. Multilevel degenerative changes greatest at L3-L4 level noted as detailed above.
[2021-09-25 16:09] VITALS: BP 157/93; PULSE 67
--- NOTE | 2021-09-26 16:00 | P.DS ---
Providers Date of admission: 09/23/21 10:20 Attending physician: Krystina Gaitan Consults: 09/23/21 10:16 Consult Physician Urgent Consulting Provider: Kwaku Regalado Consult Reason/Comments: New metastatic carcinoma Do you want consulting provider notified?: Yes 09/23/21 10:19 Consult Physician Routine Consulting Provider: Diandra Hilton Consult Reason/Comments: Possible endoscpy for esophageal cancer Do you want consulting provider notified?: Yes Primary care physician: Physician Nonstaff Hospital Course: Final Diagnosis -Epigastric abdominal pain most likely from esophageal mass pending biopsies -Constipation secondary to opiates, on bowel regimen -Hypertension resume losartan -Incidental finding of metastatic lesions to the liver: Oncology was consulted -Elevated liver enzymes -Thickening of gastroesophageal junction: post endoscopy with biopsy taken of distal esophageal ulcerated mass -Hypokalemia, resolved after supplementation -Dehydration mild acute renal failure secondary to poor by mouth, resolved -Full Code Discharge disposition Stable for discharge home in guarded condition. Follow up with primary care, Dr. Inge Hilton with GI, Dr Regalado with oncology. Hospital Course This is a pleasant 55-year-old male with past medical history significant for hypertension, chronic back pain with back surgery, with marijuana use. She presents to the hospital with complaints of abdominal discomfort nonspecific rated 6 out of 10 in severity. He also complains of 2 weeks of constipation which is the main reason for hospitalization. 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 Patient had abdominal CT which showed incidental finding of multiple masses in the liver along with significant thickening of the gastroesophageal junction concerning for possible malignancy. Patient denies a history of gastroesophageal reflux disease and denies history of smoking. She underwent EGD colonoscopy which reveals ulcerated mass in the distal esophagus extending from 30-40 cm from the incisors and a deep GE junction ulcer status post multiple biopsies. There is also a 5 mm sigmoid polyp that was removed. He was followed this admission by GI services as well as oncology. A MRI lumbar spine with and without contrast was requested for ongoing low back pain and evaluation for metastatic disease. The reports show no abnormal bone marrow signal or suspicious enhancement to suggest osseous metastatic disease. There is multilevel degenerative changes greatest at L3 to L4 level. Further findings available in the full report. On admission his labs are shown to be white count 8.5, platelet count 712, sodium 137, potassium 3.3, chloride 96, glucose 112, BUN 10, creatinine 1.08, AST 99, ALT 36, alk phos 481, amylase 63, lipase 48, tumor marker AFP 3.80. Vitamin B12 1247.0, RBC 4678. Iron studies were done showing iron 32, TIBC 204, percent saturation 15.56, transferrin 146.0, ferritin 1056.0. 09/26/2021 Patient evaluated today status post EGD colonoscopy is pending MRI. He will follow up with oncology, GI services in the office as well as his painter sign maintenance. He will undergo outpatient PET scan and follow up with oncology. Discharged on lyrica and norco for pain management. Today he denies chest pain, shortness of breath. He has had a bowel movement. Reports abdominal pain 3 out of 10. His main concern today is his chronic lower back pain. He has been started on Lyrica for pain management. His lungs are clear, S1-S2 auscultated. Focal neurological exam is negative. Patient is quiet, tearful. He is answering in short word sentences. He is still at the bedside and all questions were answered. His follow-up labs show a sodium of 137, potassium 3.8, chloride 104, BUN 7, creatinine 0.89. He is afebrile, heart rate 67, blood pressure 157/93, 97% room air. Please see medication reconciliation for list of current medications. Thank you for allowing us to participate in the care of this patient. The impression and plan of care has been dictated by Christiane Marroquin, Nurse Practitioner as directed. Dr. Kandy MD I have performed a history and physical examination and medical decision making of this patient, discussed the same with the dictator, and agree with the dictators assessment and plan as written, documented as a scribe. Based on total visit time, I have performed more than 50% of this visit. Al Patient Condition at Discharge: Fair Plan - Discharge Summary Discharge Rx Participant: Yes New Discharge Prescriptions: New Pantoprazole [Protonix] 40 mg PO AC-BRKFST #30 tab Pregabalin [Lyrica] 75 mg PO BID PRN 14 Days #28 cap PRN Reason: Pain Continue Losartan [Cozaar] 25 mg PO DAILY HYDROcodone/APAP 7.5-325MG [[place] 7.5-325] 1 tab PO QID Discharge Medication List HYDROcodone/APAP 7.5-325MG [[place] 7.5-325] 1 tab PO QID 09/23/21 [History] Losartan [Cozaar] 25 mg PO DAILY 09/23/21 [History] Pantoprazole [Protonix] 40 mg PO AC-BRKFST #30 tab 09/25/21 [Rx] Pregabalin [Lyrica] 75 mg PO BID PRN 14 Days #28 cap 09/25/21 [Rx] Follow up Appointment(s)/Referral(s): Kwaku Regalado MD [STAFF PHYSICIAN] - 1 Week (new patient office will call to schedule appt date and time) Diandra Hilton MD [STAFF PHYSICIAN] - 1 Week ( office does not except patients current insurance) Tim,Physician [Primary Care Provider] - 1-2 days Patient Instructions/Handouts: Pantoprazole (By mouth), Pregabalin (By mouth), Epigastric Pain (GEN) Activity/Diet/Wound Care/Special Instructions: Follow up with oncology and GI services outpatient Discharge Disposition: HOME SELF-CARE
== END 2021-09-25 17:05 | disposition home or self-care (01) | DRG 384 ==
LOC: EC 07:14 → 5NMEDONC 10:20
PROVIDERS: ADMIT Internal Medicine; ATTEND Internal Medicine
PROC: 0DB48ZX Excision of Esophagogastric Junction, Via Natural or Artificial Opening Endoscopic, Diagnostic (ICD-10-PCS; principal; 2021-09-24 11:15)
PROC: 0DBN8ZX Excision of Sigmoid Colon, Via Natural or Artificial Opening Endoscopic, Diagnostic (ICD-10-PCS; 2021-09-24 11:15)
DX: K25.9 Gastric ulcer, unspecified as acute or chronic, without hemorrhage or perforation (principal); C78.7 Secondary malignant neoplasm of liver and intrahepatic bile duct; N17.9 Acute kidney failure, unspecified; M51.36 Other intervertebral disc degeneration, lumbar region; T40.605A Adverse effect of unspecified narcotics, initial encounter; R74.01 Elevation of levels of liver transaminase levels; R59.1 Generalized enlarged lymph nodes; K59.03 Drug induced constipation; E86.0 Dehydration; E87.6 Hypokalemia; G89.29 Other chronic pain; I10 Essential (primary) hypertension; K63.5 Polyp of colon; Z79.899 Other long term (current) drug therapy; Z87.891 Personal history of nicotine dependence; X58.XXXA Exposure to other specified factors, initial encounter
CPT/HCPCS: 36415; 43239; 45385; 72158; 74176; 80053; 80074; 81001; 82105; 82150; 82607; 82728; 82747; 83540; 83550; 83605; 83690; 85025; 88305; 88341; 88342; 96361; 96374; 96375; 96376; 99285

== ENCOUNTER → 2021-10-11 | Outpatient (CLI) | payer OTHER | END | disposition home or self-care (01) | LOC: RADPETMAIN 13:01 | PROVIDERS: ATTEND Internal Medicine Hematology & Oncology | DX: C15.8 Malignant neoplasm of overlapping sites of esophagus (principal); R16.0 Hepatomegaly, not elsewhere classified | CPT/HCPCS: 78815; A9552 ==

== ENCOUNTER 2021-11-01 08:43 | Day surgery (SDC) | payer OTHER ==
[2021-10-31 09:34] VITALS: BMI 23.9
[~2021-11-01 08:43] MED LIST: ACETAMINOPHEN TAB 500 MG TAB PO PRN; HEPARIN SODIUM,PORCINE/PF 5,000 UNIT/0.5 ML SYRINGE SQ PRN; Pre Op ABX Message 1 EACH MISC MISCELLANE ONE
[2021-11-01] MEDS ORDERED: LACTATED RINGERS 1,000 ML IV ONE ×2 (09:41→11:31)
[2021-11-01] MEDS ORDERED: ONDANSETRON 4 MG/2 ML VIAL IVP ONE (09:42)
[2021-11-01] MEDS ORDERED: DEXAMETHASONE SOD PHOSPHATE 4 MG/ML 1 ML VIAL IVP ONE (09:43)
--- NOTE | 2021-11-01 10:39 | P.GSHP ---
History of Present Illness H&P Date: 11/01/21 Chief Complaint: Esophageal cancer 56-year-old male here today for Port-A-Cath placement. Recently diagnosed with esophageal cancer with metastasis. Patient has not had a port before. Starting chemotherapy next week. Past Medical History Past Medical History: Cancer, Hypertension Additional Past Medical History / Comment(s): chronic back pain History of Any Multi-Drug Resistant Organisms: None Reported Past Surgical History: Back Surgery Additional Past Surgical History / Comment(s): COLONOSCOPY/EGD Past Anesthesia/Blood Transfusion Reactions: No Reported Reaction Smoking Status: Never smoker - Past Family History Mother Family Medical History: No Reported History Medications and Allergies Home Medications Medication Instructions Recorded Confirmed Type Morphine Sulfate ER [Ms Contin] 15 mg PO Q3-4H 11/01/21 11/01/21 History fentaNYL 12MCG/HR PATCH [Duragesic 11/01/21 History 12MCG/HR] Allergies Allergy/AdvReac Type Severity Reaction Status Date / Time No Known Allergies Allergy Verified 10/31/21 09:25 Surgical - Exam Vital Signs Temp Pulse Resp BP Pulse Ox 98.5 F 130 H 18 146/96 97 11/01/21 09:32 11/01/21 09:32 11/01/21 09:32 11/01/21 09:32 11/01/21 09:32 Physical exam: General: Well-developed, well-nourished HEENT: Normocephalic, sclerae nonicteric Abdomen: Nontender, nondistended Extremities: No edema Neuro: Alert and oriented Assessment and Plan (1) Metastatic cancer Narrative/Plan: 56-year-old male with esophageal cancer. We'll proceed with Port-A-Cath placement at this time. Risks of bleeding, infection, DVT, pneumothorax, catheter malfunction, anesthesia related complications were discussed. The patient understands and wishes to proceed. Current Visit: No Status: Acute Code(s): C79.9 - SECONDARY MALIGNANT NEOPLASM OF UNSPECIFIED SITE SNOMED Code(s): 997233952
[2021-11-01] MEDS ORDERED: MIDAZOLAM 2 MG/2 ML VIAL ONE (10:55)
[2021-11-01] MEDS ORDERED: fentaNYL (PF) 50 MCG/ML 2 ML AMP ONE (10:55)
[2021-11-01] MEDS ORDERED: LIDOCAINE (PF) 10 MG/ML 2 ML VIAL SQ ONE ×2 (11:21)
[2021-11-01] MEDS ORDERED: HEPARIN SODIUM,PORCINE 100 UNIT/ML 5 ML VIAL IV ONE (11:21)
[2021-11-01] MEDS ORDERED: NALOXONE 0.4 MG/ML 1 ML VIAL IV PRN (11:28)
[2021-11-01] MEDS ORDERED: HYDROcodone/APAP 5-325MG 1 EACH TAB PO PRN (11:28)
--- NOTE | 2021-11-01 11:30 | P.OP ---
Date of Procedure: 11/01/21 Procedure(s) Performed: PREOPERATIVE DIAGNOSIS: Esophageal cancer POSTOPERATIVE DIAGNOSIS: Same PROCEDURE: Port-A-Cath placement with fluoroscopic and ultrasound guidance SURGEON: Angelita EBL: Minimal ANESTHESIA: General COMPLICATIONS: None OPERATIVE PROCEDURE: Patient was brought and placed on the operative table in the supine position. The patient was sedated per anesthesia that time. The chest and neck were prepped and draped in usual sterile fashion. The ultrasound probe was used to identify the location of the right internal jugular vein. The skin was localized with lidocaine. The Seldinger needle was advanced into the IJ under ultrasound guidance. The wire was advanced through the needle under fluoroscopic guidance into the superior vena cava. A port pocket was created in the right infraclavicular location. The catheter was tunneled from the wire entrance site to the port pocket. The port was then connected to the catheter. The dilator introducer was threaded over the guidewire. The guidewire and dilator were then removed. The catheter was advanced through the introducer and introducer was then removed. The tip was seen to be in the right atrial junction via fluoroscopy. A picture of the radiograph showing the tip at the radial digital junction was taken. Port was flushed with both saline and a Hep- Lock solution. There was good flow both in and out of the port. The port was sutured in underlying tissues using 3-0 silk sutures. The subcutaneous tissues were reapproximated using 3-0 Vicryl sutures and the skin at both locations using 4-0 Monocryl sutures. Skin glue and sterile dressings then applied. DISPOSITION: Stable to recovery room
[2021-11-01 11:55] VITALS: TEMP 97.2
--- NOTE | 2021-11-01 12:34 | XR ---
EXAMINATION TYPE: XR chest 1V confirm line placement DATE OF EXAM: 11/01/2021 12:23 PM COMPARISON: PET/CT 10/11/2021. TECHNIQUE: XR chest 1V , frontal portable radiograph CLINICAL INDICATION:Male, 56 years old with history of line placement; FINDINGS: Lungs/Pleura: There is no evidence of pleural effusion, focal consolidation, or pneumothorax. Left b asilar atelectasis. Pulmonary vascularity: Unremarkable. Heart/mediastinum: Cardiomediastinal silhouette is unremarkable. Musculoskeletal: No acute osseous pathology. Other findings: None Lines/Tubes:[id number] projecting over the right hemithorax with distal tip at the cavoatrial junc tion. IMPRESSION: Interval placement of right chest port with tip at the superior cavoatrial junction. No evidence for pneumothorax.
[2021-11-01 12:48] VITALS: RESP 16
[2021-11-01 13:03] VITALS: BP 121/88; PULSE 93
--- NOTE | 2021-11-01 14:47 | FL ---
Intraoperative/procedural fluoroscopic services were provided for Mediport catheter placement. Total fluoroscopy time is 1 second with a total of 2 submitted images to PACS. Please see the operative not e for further details.
== END 2021-11-01 13:10 | disposition home or self-care (01) ==
LOC: OR 08:43
PROVIDERS: ATTEND Surgery
DX: C15.5 Malignant neoplasm of lower third of esophagus (principal); C79.9 Secondary malignant neoplasm of unspecified site; I10 Essential (primary) hypertension; G89.29 Other chronic pain; M54.9 Dorsalgia, unspecified; Z79.891 Long term (current) use of opiate analgesic
CPT/HCPCS: 77001; 36561; C1788; J2250; J2001; J1642; J1100; J2405; J3010; J1644

== ENCOUNTER → 2021-11-15 | Outpatient (CLI) | payer OTHER ==
--- NOTE | 2021-11-15 10:24 | US ---
EXAMINATION TYPE: US liver DATE OF EXAM: 11/15/2021 COMPARISON: CT abdomen and pelvis September 23, 2021 and PET/CT October 11, 2021 CLINICAL HISTORY: C22.0 Liver Ca. Liver CA TECHNIQUE: Multiple sonographic images of the right upper quadrant are obtained. FINDINGS: EXAM MEASUREMENTS: Liver Length: 22 cm Gallbladder Wall: .5 cm CBD: .4 cm Right Kidney: 9.4 x 4.1 x 4.0 cm PIE CHEF NOTES: Pancreas: Obscured by bowel gas Liver: Heterogenous multinodular hepatomegaly. Gallbladder: Polyp vs. stone. Evidence for sonographic Chu's sign: no CBD: wnl Right Kidney: wnl Suboptimal evaluation of pancreas on ultrasound which appeared within normal limits on recent CT and PET/CT. No aneurysmal change in the visualized proximal or mid abdominal aorta. Visualized liver is s lightly heterogeneous in appearance with multifocal and confluent masses or neoplasm seen on CT and P ET/CT less well distinctly visualized on ultrasound. No new biliary dilatation. No new surrounding as cites. Mild hepatomegaly remains present. There is suspected gallbladder polyp. No shadowing mobile g allstones. No right-sided hydronephrosis. IMPRESSION: As above.
== END | disposition home or self-care (01) ==
LOC: RADUSWWP 09:12
PROVIDERS: ATTEND Internal Medicine Hematology & Oncology
DX: C22.0 Liver cell carcinoma (principal)
CPT/HCPCS: 76705

== ENCOUNTER 2021-11-17 22:44 | Inpatient (IN) | payer OTHER ==
[2021-11-17] MEDS ORDERED: PANTOPRAZOLE 40 MG/10 ML VIAL IVP STA (23:13)
--- NOTE | 2021-11-17 23:17 | ED ---
General Adult HPI - General Chief complaint: Extremity Problem,Nontraumatic Stated complaint: Bilat adema lower legs, cancer pt Time Seen by Provider: 11/17/21 23:06 Source: patient, family, RN notes reviewed Mode of arrival: wheelchair Limitations: no limitations - History of Present Illness Initial comments: Patient is a pleasant 56-year-old male presenting to the emergency department with family with concerns for confusion, jaundice, and leg edema. 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 Patient did have a recent bilirubin level of 5 last week. Patient just started chemotherapy last week. Patient is having some confusion and disorientation intermittently. Patient thought that he was surfing all driving with family to the hospital tonight. Patient also had an episode where he thought there was taken the floor. Patient feels overall he is doing well and does not have complaints himself. Family is concerned the patient's legs have been swelling. - Related Data Home Medications Medication Instructions Recorded Confirmed Morphine Sulfate ER [Ms Contin] 15 mg PO Q3-4H 11/01/21 11/01/21 fentaNYL 12MCG/HR PATCH [Duragesic 11/01/21 12MCG/HR] Allergies Allergy/AdvReac Type Severity Reaction Status Date / Time No Known Allergies Allergy Verified 11/17/21 23:08 Review of Systems ROS Statement: Those systems with pertinent positive or pertinent negative responses have been documented in the HPI. ROS Other: All systems not noted in ROS Statement are negative. Constitutional: Denies: fever Eyes: Denies: eye pain ENT: Denies: ear pain Respiratory: Denies: cough Cardiovascular: Denies: chest pain Endocrine: Reports: fatigue Gastrointestinal: Denies: abdominal pain Genitourinary: Denies: dysuria Musculoskeletal: Denies: back pain Skin: Reports: as per HPI Neurological: Reports: as per HPI Past Medical History Past Medical History: Cancer, Hypertension Additional Past Medical History / Comment(s): chronic back pain History of Any Multi-Drug Resistant Organisms: None Reported Past Surgical History: Back Surgery Additional Past Surgical History / Comment(s): COLONOSCOPY/EGD Past Anesthesia/Blood Transfusion Reactions: No Reported Reaction Past Psychological History: No Psychological Hx Reported Smoking Status: Never smoker - Past Family History Mother Family Medical History: No Reported History General Exam Limitations: no limitations General appearance: alert, in no apparent distress Head exam: Present: atraumatic, normocephalic Eye exam: Present: scleral icterus ENT exam: Present: normal oropharynx Neck exam: Present: normal inspection Respiratory exam: Present: normal lung sounds bilaterally Cardiovascular Exam: Present: regular rate, normal rhythm GI/Abdominal exam: Present: soft. Absent: tenderness Extremities exam: Present: pedal edema (+1 bilateral). Absent: calf tenderness Neurological exam: Present: alert, oriented X3, CN II-XII intact. Absent: motor sensory deficit Psychiatric exam: Present: normal affect, normal mood Skin exam: Present: normal color Course Vital Signs 11/17/21 11/18/21 22:53 01:00 Temperature 98.2 F Pulse Rate 102 H 84 Respiratory 18 16 Rate Blood Pressure 119/82 108/79 O2 Sat by Pulse 96 95 Oximetry Medical Decision Making - Medical Decision Making Case was discussed with Dr. Pope who is concerned about possible developing encephalopathy. He would like patient to be observed overnight with IV fluids and cultures and urinalysis. Computed tomography scan will also be ordered. Dr. Tirado has been paged for admission covering hospital observation call. - Lab Data Result diagrams: 11/17/21 23:49 11/17/21 23:49 Lab Results 11/17/21 11/17/21 11/17/21 Range/Units 23:49 23:49 23:49 WBC 8.7 (3.8-10.6) k/uL RBC 3.27 L (4.30-5.90) m/uL Hgb 9.5 L D (13.0-17.5) gm/dL Hct 30.9 L (39.0-53.0) % MCV 94.4 (80.0-100.0) fL MCH 29.2 (25.0-35.0) pg MCHC 30.9 L (31.0-37.0) g/dL RDW 17.4 H (11.5-15.5) % Plt Count 215 (150-450) k/uL MPV 8.2 Neutrophils % 92 % Lymphocytes % 5 % Monocytes % 1 % Eosinophils % 1 % Basophils % 0 % Neutrophils # 8.0 H (1.3-7.7) k/uL Lymphocytes # 0.5 L (1.0-4.8) k/uL Monocytes # 0.1 (0-1.0) k/uL Eosinophils # 0.1 (0-0.7) k/uL Basophils # 0.0 (0-0.2) k/uL Hypochromasia Marked Anisocytosis Slight PT 11.1 (9.0-12.0) sec INR 1.0 (<1.2) APTT 21.5 L (22.0-30.0) sec Sodium 136 L (137-145) mmol/L Potassium 4.0 (3.5-5.1) mmol/L Chloride 101 (98-107) mmol/L Carbon Dioxide 26 (22-30) mmol/L Anion Gap 9 mmol/L BUN 24 H (9-20) mg/dL Creatinine 1.06 (0.66-1.25) mg/dL Est GFR (CKD-EPI)AfAm 90 (>60 ml/min/1.73 sqM) Est GFR (CKD-EPI)NonAf 78 (>60 ml/min/1.73 sqM) Glucose 125 H (74-99) mg/dL Plasma Lactic Acid True (0.7-2.0) mmol/L Calcium 8.3 L (8.4-10.2) mg/dL Total Bilirubin 7.0 H (0.2-1.3) mg/dL AST 183 H (17-59) U/L ALT 121 H (4-49) U/L Alkaline Phosphatase 640 H (38-126) U/L Ammonia (<30) umol/L Total Protein 6.2 L (6.3-8.2) g/dL Albumin 3.0 L (3.5-5.0) g/dL Amylase 47 (30-110) U/L Lipase 28 (23-300) U/L 11/17/21 11/17/21 Range/Units 23:49 23:52 WBC (3.8-10.6) k/uL RBC (4.30-5.90) m/uL Hgb (13.0-17.5) gm/dL Hct (39.0-53.0) % MCV (80.0-100.0) fL MCH (25.0-35.0) pg MCHC (31.0-37.0) g/dL RDW (11.5-15.5) % Plt Count (150-450) k/uL MPV Neutrophils % % Lymphocytes % % Monocytes % % Eosinophils % % Basophils % % Neutrophils # (1.3-7.7) k/uL Lymphocytes # (1.0-4.8) k/uL Monocytes # (0-1.0) k/uL Eosinophils # (0-0.7) k/uL Basophils # (0-0.2) k/uL Hypochromasia Anisocytosis PT (9.0-12.0) sec INR (<1.2) APTT (22.0-30.0) sec Sodium (137-145) mmol/L Potassium (3.5-5.1) mmol/L Chloride (98-107) mmol/L Carbon Dioxide (22-30) mmol/L Anion Gap mmol/L BUN (9-20) mg/dL Creatinine (0.66-1.25) mg/dL Est GFR (CKD-EPI)AfAm (>60 ml/min/1.73 sqM) Est GFR (CKD-EPI)NonAf (>60 ml/min/1.73 sqM) Glucose (74-99) mg/dL Plasma Lactic Acid True 1.7 (0.7-2.0) mmol/L Calcium (8.4-10.2) mg/dL Total Bilirubin (0.2-1.3) mg/dL AST (17-59) U/L ALT (4-49) U/L Alkaline Phosphatase (38-126) U/L Ammonia 11 (<30) umol/L Total Protein (6.3-8.2) g/dL Albumin (3.5-5.0) g/dL Amylase (30-110) U/L Lipase (23-300) U/L - Radiology Data Radiology results: report reviewed (Bilateral lower from the ultrasound negative for DVT), image reviewed (Chest and abdominal x-ray revealed no acute process) Disposition Clinical Impression: Metastatic cancer, Altered mental status, Leg edema Disposition: ADMITTED IP TO THIS HOSP Is patient prescribed a controlled substance at d/c from ED?: No Referrals: None,Stated [Primary Care Provider] - 1-2 days Time of Disposition: 01:13
[2021-11-18 00:10] LABS: Anisocytosis Slight; Basophils % (A) 0 %; Eosinophils # (A) 0.1 k/uL (0-0.7); Eosinophils % (A) 1 %; HCT 30.9 % (39.0-53.0); Hypochromasia Marked; Lymphocytes # (A) 0.5 k/uL (1.0-4.8); Lymphocytes % (A) 5 %; MCH 29.2 pg (25.0-35.0); MCHC 30.9 g/dL (31.0-37.0); MCV 94.4 fL (80.0-100.0); Mean Platelet Volume 8.2; Monocytes # (A) 0.1 k/uL (0-1.0); Monocytes % (A) 1 %; Neutrophils % (A) 92 %; Platelet Count 215 k/uL (150-450); RBC 3.27 m/uL (4.30-5.90); RDW 17.4 % (11.5-15.5); WBC 8.7 k/uL (3.8-10.6)
[2021-11-18 00:16] LABS: HGB 9.5 gm/dL (13.0-17.5)
--- NOTE | 2021-11-18 00:19 | US ---
EXAMINATION TYPE: US venous doppler duplex LE DATE OF EXAM: 11/18/2021 12:07 AM COMPARISON: NONE CLINICAL HISTORY: swelling. Bilateral leg swelling, pt currently on chemo SIDE PERFORMED: Bilateral TECHNIQUE: The lower extremity deep venous system is examined utilizing real time linear array sonog shana with graded compression, doppler sonography and color-flow sonography. VESSELS IMAGED: Common Femoral Vein Deep Femoral Vein Greater Saphenous Vein * Femoral Vein Popliteal Vein Small Saphenous Vein * Proximal Calf Veins (* superficial vessels) Right Leg: Negative for DVT Left Leg: Negative for DVT IMPRESSION: No evidence of deep vein thrombosis in both legs.
[2021-11-18 00:24] LABS: Calcium 8.3 mg/dL (8.4-10.2); Total Protein 6.2 g/dL (6.3-8.2)
[2021-11-18 00:26] LABS: Prothrombin Time 11.1 sec (9.0-12.0)
[2021-11-18 00:32] LABS: Partial Thromboplastin Time 21.5 sec (22.0-30.0)
--- NOTE | 2021-11-18 00:44 | XR ---
EXAMINATION TYPE: XR chest 2V DATE OF EXAM: 11/18/2021 COMPARISON: 11/01/2021 HISTORY: Abdominal pain TECHNIQUE: FINDINGS: There is some mild linear density at the left lung base. Heart and mediastinum are normal. No heart failure. There is right central venous catheter with tip in the superior vena cava. IMPRESSION: There is some mild atelectasis left lung base that is increased compared to the old exam.
--- NOTE | 2021-11-18 00:51 | XR ---
EXAMINATION TYPE: XR KUB DATE OF EXAM: 11/18/2021 COMPARISON: NONE HISTORY: Abdominal pain TECHNIQUE: 2 views upright FINDINGS: The bowel gas pattern is normal. No sign of intestinal obstruction or pneumoperitoneum. Fec al pattern is normal. There is some mild atelectasis left lung base. There is vertebroplasty of L1. N o calcification seen over the kidneys. IMPRESSION: Nonacute abdomen. There is some mild subsegmental atelectasis left lung base.
[2021-11-18] MEDS ORDERED: NALOXONE 0.4 MG/ML 1 ML VIAL IV PRN (01:17)
[2021-11-18] MEDS: SODIUM CHLORIDE 0.9% 1,000 ML IV SCH ×2 (01:32→15:28)
--- NOTE | 2021-11-18 02:21 | CT ---
EXAMINATION TYPE: CT brain wo/w con DATE OF EXAM: 11/18/2021 COMPARISON: None HISTORY: confusion hx of esphogeal ca. CT DLP: 2236.4 mGycm Automated exposure control for dose reduction was used. CONTRAST: Performed with IV Contrast, patient injected with 100 mL of Isovue 300. Images of the brain obtained with no contrast. Ventricles have normal size. There is no mass effect nor midline shift. No sign of intracranial hemor rhage. Calvarium is intact. No evidence of cerebral edema. Skull base is intact. There is normal aera tion of the mastoid sinuses. IMPRESSION: Negative unenhanced head CT scan.
[2021-11-18 04:54] LABS: Appearance,Urine Clear (Clear); Bilirubin,Urine 2+ (Negative); Blood,Urine Negative (Negative); Color,Urine Orange; Glucose,Urine (UA) Negative (Negative); Ketones,Urine Negative (Negative); Leukocyte Esterase,Urine Negative (Negative); Nitrite,Urine Negative (Negative); PH, Urine 5.5 (5.0-8.0); Protein,Urine Trace (Negative)
[2021-11-18] MEDS ORDERED: PREGABALIN 75 MG CAP PO PRN (08:58)
[2021-11-18] MEDS: PANTOPRAZOLE 40 MG/10 ML VIAL IV SCH (09:41)
[2021-11-18 10:09] LABS: Anisocytosis Slight; HCT 29.1 % (39.0-53.0); HGB 8.7 gm/dL (13.0-17.5); Hypochromasia Marked; MCH 28.3 pg (25.0-35.0); MCHC 29.9 g/dL (31.0-37.0); MCV 94.8 fL (80.0-100.0); Mean Platelet Volume 8.5; Platelet Count 188 k/uL (150-450); RBC 3.07 m/uL (4.30-5.90); WBC 8.1 k/uL (3.8-10.6)
[2021-11-18 10:19] LABS: ALT 103 U/L (4-49); AST 183 U/L (17-59); African American GFR (CKD) >90 (>60 ml/min/1.73 sqM); Albumin 2.6 g/dL (3.5-5.0); Albumin/Globulin Ratio 0.9; Alkaline Phosphatase 683 U/L (38-126); Anion Gap 5 mmol/L; Blood Urea Nitrogen 19 mg/dL (9-20); Calcium 7.5 mg/dL (8.4-10.2); Carbon Dioxide 27 mmol/L (22-30); Chloride 102 mmol/L (98-107); Glucose 95 mg/dL (74-99); Magnesium 2.1 mg/dL (1.6-2.3); Non-African American GFR(CKD) >90 (>60 ml/min/1.73 sqM); Potassium 3.6 mmol/L (3.5-5.1); Sodium 134 mmol/L (137-145); Total Bilirubin 5.6 mg/dL (0.2-1.3); Total Protein 5.6 g/dL (6.3-8.2)
[2021-11-18] MEDS ORDERED: LACTULOSE 20 GM/30 ML CUP PO ONE (11:00)
--- NOTE | 2021-11-18 14:33 | P.CONS ---
History of Present Illness - Reason for Consult Consult date: 11/18/21 Esophageal cancer - Chief Complaint Jaundice - History of Present Illness Patient of Dr. Regalado Mr Abarca is a pleasant 56-year-old male patient we have been asked to see 09/22/21 due to abnormal findings on CT AP. Pt pesented with abdominal pain/epigastric pain, constipation, nausea and vomiting over the last 2 weeks, subsequent loss of appetite, persistent, will feel pain radiating into the right axilla at times. Nothing was relieving the symptoms completely, supportive care helping. Patient denied fevers, chills, sweats, difficulty swallowing, painful swallowing, not sure how much weight he has lost, he has had an EGD and colonoscopy about 15-18 years ago. He has a history of a broken xiphoid, he quit smoking 12 years ago, no personal history of cancer. He had an EGD and colonoscopy with Dr. Hilton 09/24/21. GE junction biopsy showed poorly differentiated invasive carcinoma with ulceration. Sigmoid colon polyp was a tubular adenoma. HER-2/aaron by fish was negative, NGS pending. He had an MRI of the lumbar spine 09/25 which was negative for metastases. staging PET scan 10/11 IMPRESSION: Distal esophageal neoplasm has more prominent gastric component/extension. Adjacent abnormal adenopathy in the upper abdomen. Diffuse hepatic metastatic disease is confirmed. Abnormal retroperitoneal lymph nodes in the upper to mid abdomen are noted. Abnormal bilateral supraclavicular ad enopathy and less prominent anterior superior mediastinal lymph node also noted. Patient here in office today for her first post hospitalization follow-up. He is with his ex-. He is having significant pain, likely secondary to malignancy. Pain is in epigastric area, radiates to the right, worse the last week, "pushing" sensation, constant, he was eating fine last week. Had been using oral dilaudid, 1 every 5-6 hours-not helping. Denies bleeding, vomiting, constipation.Pt here today for hospital follow-up. Pain is in epigastric area, radiates to the right, worse the last week, "pushing" sensation, constant, he was eating fine last week. Had been using oral dilaudid, 1 every 5-6 hours-not helping. Denies bleeding, vomiting, constipation 10/28/21-Pain med adjustment, chemo edu. 11/11/21-Pt here for 1st chemotherapy. Patient is seen acutely by [employer]ER because Son is requesting more pain meds so that he does not have to go to the pharmacy every week to get refill. First of all-pt was given a limited # of tablets because we were still trying to find appropriate dosing for pain control. Second, patient cannot receive more than 30 days worth of prescription narcotics at one time and no refills are given. On further questioning patient stated he was not using as much MSIR as due noted in the instructions (2 tablets in the a.m., 1 every 4 hours as needed and 2 tablets in the p.m. as needed). Patient reported he is using about 6 a day. Reported bowel movements, no constipation. Patient's pain is still epigastric area radiating through to the back, pretty constant, he does relay some relief with pain medications, we continue to work on this with him. he has now been admitted with confusion, increasing liver function and bili, imaging withour clear obstruction, son at bedside Review of Systems ROS unobtainable: due to mental status Past Medical History Past Medical History: Cancer, Hypertension Additional Past Medical History / Comment(s): Recent diagnosis of esophageal cancer with liver metastasis/recieved first chemo treatments on 11/11/21, recent increased weakness/near falls, chronic back pain. History of Any Multi-Drug Resistant Organisms: None Reported Past Surgical History: Back Surgery Additional Past Surgical History / Comment(s): COLONOSCOPies/EGDs, 11/01/21 port placed, kyphoplasty Past Anesthesia/Blood Transfusion Reactions: No Reported Reaction Smoking Status: Former smoker - Past Family History Mother Family Medical History: Dementia Father Family Medical History: Cancer Additional Family Medical History / Comment(s): Skin cancer Medications and Allergies Home Medications Medication Instructions Recorded Confirmed Type fentaNYL 12MCG/HR PATCH [Duragesic 1 patch TRANSDERM Q72H 11/01/21 11/18/21 History 12MCG/HR] Lidocaine-Prilocaine Cream [Emla 1 applic TOPICAL DAILY PRN 11/18/21 11/18/21 History Cream 2.5%/2.5%] Morphine Sulfate Ir [MSIR] 15 mg PO Q4H PRN 11/18/21 11/18/21 History Ondansetron [Zofran] 4 mg PO Q4H PRN 11/18/21 11/18/21 History Pantoprazole [Protonix] 40 mg PO DAILY 11/18/21 11/18/21 History Pregabalin [Lyrica] 75 mg PO BID PRN 11/18/21 11/18/21 History fentaNYL 25MCG/HR PATCH [Duragesic 1 patch TRANSDERM Q72H 11/18/21 11/18/21 History 25MCG/HR] Allergies Allergy/AdvReac Type Severity Reaction Status Date / Time No Known Allergies Allergy Verified 11/18/21 06:58 Physical Exam Vitals: Vital Signs Temp Pulse Pulse Resp BP BP Pulse Ox 11/18/21 07:46 98.3 F 68 16 113/73 96 11/18/21 05:46 73 16 106/61 97 11/18/21 02:46 79 16 118/88 99 11/18/21 01:00 84 16 108/79 95 11/17/21 22:53 98.2 F 102 H 18 119/82 96 Intake and Output 11/17/21 11/18/21 11/18/21 22:59 06:59 14:59 Other: Weight 70.307 kg 70.307 kg Jaundice slow to respond NAD Lungs shallow inspirations Edema B<E 1+ Results CBC & Chem 7: 11/18/21 09:41 11/18/21 09:41 Labs: Abnormal Lab Results - Last 24 Hours (Table) 11/17/21 11/17/21 11/17/21 Range/Units 23:49 23:49 23:49 RBC 3.27 L (4.30-5.90) m/uL Hgb 9.5 L D (13.0-17.5) gm/dL Hct 30.9 L (39.0-53.0) % MCHC 30.9 L (31.0-37.0) g/dL RDW 17.4 H (11.5-15.5) % Neutrophils # 8.0 H (1.3-7.7) k/uL Lymphocytes # 0.5 L (1.0-4.8) k/uL APTT 21.5 L (22.0-30.0) sec Sodium 136 L (137-145) mmol/L BUN 24 H (9-20) mg/dL Glucose 125 H (74-99) mg/dL Calcium 8.3 L (8.4-10.2) mg/dL Total Bilirubin 7.0 H (0.2-1.3) mg/dL AST 183 H (17-59) U/L ALT 121 H (4-49) U/L Alkaline Phosphatase 640 H (38-126) U/L Total Protein 6.2 L (6.3-8.2) g/dL Albumin 3.0 L (3.5-5.0) g/dL Ur Specific [place] (1.001-1.035) Urine Protein (Negative) Urine Bilirubin (Negative) 11/18/21 Range/Units 04:42 RBC (4.30-5.90) m/uL Hgb (13.0-17.5) gm/dL Hct (39.0-53.0) % MCHC (31.0-37.0) g/dL RDW (11.5-15.5) % Neutrophils # (1.3-7.7) k/uL Lymphocytes # (1.0-4.8) k/uL APTT (22.0-30.0) sec Sodium (137-145) mmol/L BUN (9-20) mg/dL Glucose (74-99) mg/dL Calcium (8.4-10.2) mg/dL Total Bilirubin (0.2-1.3) mg/dL AST (17-59) U/L ALT (4-49) U/L Alkaline Phosphatase (38-126) U/L Total Protein (6.3-8.2) g/dL Albumin (3.5-5.0) g/dL Ur Specific [place] 1.040 H (1.001-1.035) Urine Protein Trace H (Negative) Urine Bilirubin 2+ H (Negative) CT scan - abdomen: report reviewed Assessment and Plan (1) Altered mental status Current Visit: Yes Status: Acute Code(s): R41.82 - ALTERED MENTAL STATUS, UNSPECIFIED SNOMED Code(s): 058076944 (2) Metastatic cancer Narrative/Plan: Status post one cycle of FOLFOX, hold until improved Current Visit: Yes Status: Acute Code(s): C79.9 - SECONDARY MALIGNANT NEOPLASM OF UNSPECIFIED SITE SNOMED Code(s): 184476468 (3) Esophageal mass Current Visit: No Status: Acute Code(s): K22.89 - OTHER SPECIFIED DISEASE OF ESOPHAGUS SNOMED Code(s): 307380095 (4) Elevated LFTs Narrative/Plan: ammonia levels ok but will add lactulose, as no BM since admission Current Visit: Yes Status: Acute Code(s): R79.89 - OTHER SPECIFIED ABNORMAL FINDINGS OF BLOOD CHEMISTRY SNOMED Code(s): 452618461 Plan: Continue to monitor daily hepatic function
[2021-11-18] MEDS: MORPHINE SULFATE IR 15 MG TABLET PO PRN ×2 (15:21→20:42)
--- NOTE | 2021-11-18 19:02 | P.HPIM ---
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 Patient presented to the emergency department with a chief complaint of intermittent/episodicconfusion and disorientation and family concerns of jaundice and bilateral lower extremity edema.patient underwent full evaluation in the emergency department. He was found to have normocytic normochromic anemia with a hemoglobin of 8.7,hyponatremia with sodium of 134, and elevated liver enzymes with total bili of 7.0, AST of 183, ALT 121, an alkaline phosphatase of 640. Ammonia levels were normal findings at 11. Urinalysis positive for protein and bilirubin. Patient underwent bilateral lower extremity Dopplers which were negative for DVT. chest x-ray revealing mild atelectasis left lung base otherwise negative for acute cardiopulmonary process. KUB revealing nonacute abdomen with mild subsegmental atelectasis at left lung base. CT head was negative for acute intercranial process. Patient was admitted under our services of consultation oncology. Patient was seen and fully evaluated at bedside. Pt and son at bedside report concerns of bilateral lower extremity edema. Bilateral lower extremities were edematous 2-3+ pitting edema. Abdomen also slightly edematous, cirrhotic appearing. Patient reports overall fatigue and weakness. Patient sent reports increased jaundice and bilateral lower extremity swelling over the past week. He also reports that he believes this is causing intermittent episodes of confusion/forgetfulness. Patient currently alert and oriented to person, place, time, and situation. He denies having any headache, lightheadedness, dizziness, chest pain, palpitations, or shortness of breath. Patient does report diffuse abdominal pain worse in right upper quadrant and a decreased appetite. He denies having any fevers, chills, or diaphoresis. Review of systems: Pertinent positives and negatives as discussed in HPI, a complete review of systems was performed and all other systems are negative. Physical exam: Vital signs reviewed and stable. General: Nontoxic, no distress and appears stated age. Derm: Skin warm and dry, jaundiced. Head: Atraumatic, normocephalic and symmetric. Eyes: EOMs intact, no lid lag, and Icteric scleras Mouth: no lip lesions, mucus membranes moist Cardiovascular: regular rate and rhythm with normal S1S2, systolic murmur, positive posterior tibial pulses bilaterally, and cap refill < 2 seconds. Lungs: Respirations even, regular, and unlabored on room air. Lungs CTA bilater ally, no rhonchi, no rales, no wheezing, and no accessory muscle usage. Abdominal: distended abdomen, tenderness to palpation right upper quadrant and epigastric region, no guarding, no appreciable organomegaly Ext: ROM intact. No gross muscle atrophy, 2-3+ bilateral lower extremity pitting edema, no contractures Neuro: Speech clear, face symmetrical and CN II-XII grossly intact with no noted focal neuro deficits Psych: Alert and oriented to person, place, time, and situation. Appropriate and pleasant affect. Assessment and Plan of Care: Jaundiced and bilateral lower extremity swelling Weakness, fatigue Transaminitis Stage IV metastatic esophageal cancer with liver metastasis Protein malnutrition, total protein 5.6, albumin 2.6. -CT abdomen and pelvis without contrast secondary to reports of worsening right upper quadrant pain -Liver ultrasound completed 11/15/21 reporting heterogeneous liver with multifocal and confluent masses or neoplasms seen, no new biliary dilation no new surr ounding ascites -Oncology consulted -Symptomatic care and pain management -Echocardiogram -Continue to monitor closely with repeat a.m. labs. -Further recommendations based upon additional clinical findings. -PT/OT -protein supplements 3 times daily between meals. The patient is admitted with an anticipated greater than 2 midnight stay for evaluation of jaundiced and bilateral lower extremity edema. Surrogate decision-maker: patient's son, [place] CODE STATUS: DO NOT RESUSCITATE/DO NOT INTUBATE DVT prophylaxis: Lovenox Discussed with: Pt. pt's son, and RN Anticipated discharge date: Clinical course to determine Anticipated discharge place: Home A total of 45 minutes was spent on the care of this complex patient more than 50% of the time was spent in counseling and care coordination. Past Medical History Past Medical History: Cancer, Hypertension Additional Past Medical History / Comment(s): Recent diagnosis of esophageal cancer with liver metastasis/recieved first chemo treatments on 11/11/21, recent increased weakness/near falls, chronic back pain. History of Any Multi-Drug Resistant Organisms: None Reported Past Surgical History: Back Surgery Additional Past Surgical History / Comment(s): COLONOSCOPies/EGDs, 11/01/21 port placed, kyphoplasty Past Anesthesia/Blood Transfusion Reactions: No Reported Reaction Smoking Status: Former smoker - Past Family History Mother Family Medical History: Dementia Father Family Medical History: Cancer Additional Family Medical History / Comment(s): Skin cancer Medications and Allergies Home Medications Medication Instructions Recorded Confirmed Type fentaNYL 12MCG/HR PATCH [Duragesic 1 patch TRANSDERM Q72H 11/01/21 11/18/21 History 12MCG/HR] Lidocaine-Prilocaine Cream [Emla 1 applic TOPICAL DAILY PRN 11/18/21 11/18/21 History Cream 2.5%/2.5%] Morphine Sulfate Ir [MSIR] 15 mg PO Q4H PRN 11/18/21 11/18/21 History Ondansetron [Zofran] 4 mg PO Q4H PRN 11/18/21 11/18/21 History Pantoprazole [Protonix] 40 mg PO DAILY 11/18/21 11/18/21 History Pregabalin [Lyrica] 75 mg PO BID PRN 11/18/21 11/18/21 History fentaNYL 25MCG/HR PATCH [Duragesic 1 patch TRANSDERM Q72H 11/18/21 11/18/21 History 25MCG/HR] Allergies Allergy/AdvReac Type Severity Reaction Status Date / Time No Known Allergies Allergy Verified 11/18/21 06:58 Physical Exam Vitals: Vital Signs Temp Pulse Pulse Resp BP BP Pulse Ox 11/18/21 07:46 98.3 F 68 16 113/73 96 11/18/21 05:46 73 16 106/61 97 11/18/21 02:46 79 16 118/88 99 11/18/21 01:00 84 16 108/79 95 11/17/21 22:53 98.2 F 102 H 18 119/82 96 Intake and Output 11/17/21 11/18/21 11/18/21 22:59 06:59 14:59 Other: Weight 70.307 kg 70.307 kg Results CBC & Chem 7: 11/18/21 09:41 11/18/21 09:41 Labs: Abnormal Lab Results - Last 24 Hours (Table) 11/17/21 11/17/21 11/17/21 Range/Units 23:49 23:49 23:49 RBC 3.27 L (4.30-5.90) m/uL Hgb 9.5 L D (13.0-17.5) gm/dL Hct 30.9 L (39.0-53.0) % MCHC 30.9 L (31.0-37.0) g/dL RDW 17.4 H (11.5-15.5) % Neutrophils # 8.0 H (1.3-7.7) k/uL Lymphocytes # 0.5 L (1.0-4.8) k/uL APTT 21.5 L (22.0-30.0) sec Sodium 136 L (137-145) mmol/L BUN 24 H (9-20) mg/dL Glucose 125 H (74-99) mg/dL Calcium 8.3 L (8.4-10.2) mg/dL Total Bilirubin 7.0 H (0.2-1.3) mg/dL AST 183 H (17-59) U/L ALT 121 H (4-49) U/L Alkaline Phosphatase 640 H (38-126) U/L Total Protein 6.2 L (6.3-8.2) g/dL Albumin 3.0 L (3.5-5.0) g/dL Ur Specific [place] (1.001-1.035) Urine Protein (Negative) Urine Bilirubin (Negative) 11/18/21 Range/Units 04:42 RBC (4.30-5.90) m/uL Hgb (13.0-17.5) gm/dL Hct (39.0-53.0) % MCHC (31.0-37.0) g/dL RDW (11.5-15.5) % Neutrophils # (1.3-7.7) k/uL Lymphocytes # (1.0-4.8) k/uL APTT (22.0-30.0) sec Sodium (137-145) mmol/L BUN (9-20) mg/dL Glucose (74-99) mg/dL Calcium (8.4-10.2) mg/dL Total Bilirubin (0.2-1.3) mg/dL AST (17-59) U/L ALT (4-49) U/L Alkaline Phosphatase (38-126) U/L Total Protein (6.3-8.2) g/dL Albumin (3.5-5.0) g/dL Ur Specific [place] 1.040 H (1.001-1.035) Urine Protein Trace H (Negative) Urine Bilirubin 2+ H (Negative) Thrombosis Risk Factor Assmnt - Choose All That Apply Any of the Below Risk Factors Present?: Yes Other Risk Factors: Yes Each Risk Factor Represents 2 Points: Malignancy Other congenital or acquired thrombophilia - If yes, enter type in comment: No Thrombosis Risk Factor Assessment Total Risk Factor Score: 2 Thrombosis Risk Factor Assessment Level: Low Risk
--- NOTE | 2021-11-18 22:15 | CT ---
EXAMINATION TYPE: CT abdomen pelvis wo con CT DLP: 388.9 mGycm, Automated exposure control for dose reduction was used. DATE OF EXAM: 11/18/2021 9:16 PM COMPARISON: PET 10/11/2021, CT abdomen pelvis 09/17/2021. CLINICAL INDICATION:Male, 56 years old with history of increased right upper quadrant pain; increased right upper quadrant pain TECHNIQUE: Axial CT of the abdomen and pelvis. Sagittal and coronal reformats were created on a [employer] workstation. Contrast used: None Oral contrast used: without Oral Contrast FINDINGS: LOWER CHEST: Unremarkable ABDOMEN LIVER: Diffuse heterogeneity to the liver with geographic areas of decreased attenuation along with m ultiple hepatic masses. Overall there is felt to be increased in both size and number of lesions when comparing to prior PET CT. GALLBLADDER AND BILE DUCTS: Unremarkable. PANCREAS: Mild fat stranding around the pancreas. SPLEEN: Unremarkable. ADRENAL GLANDS: Unremarkable. KIDNEYS AND URETERS: No evidence of hydronephrosis or renal calculus. The ureters are unremarkable. PELVIS BLADDER: Circumferential bladder wall thickening. REPRODUCTIVE: Unremarkable. ABDOMEN & PELVIS STOMACH AND BOWEL: There is thickening of the gastroesophageal junction as seen on prior PET/CT scan. No evidence of bowel obstruction. Appendix is normal PERITONEUM: No evidence of pneumoperitoneum. Trace free fluid in the abdomen. VASCULATURE: No evidence of aortic aneurysm. Moderate atherosclerosis of the arterial vasculature. MUSCULOSKELETAL: No acute osseous abnormalities, post fixation changes to the L1 vertebral body. Mild multilevel disc degeneration changes throughout the spine. LYMPH NODES: Adenopathy throughout the retroperitoneum as seen on prior PET scan consistent with know n metastatic disease. SOFT TISSUE/ABDOMINAL WALL: Unremarkable IMPRESSION: 1. Limited evaluation without contrast for suggested interval mild progression of known malignancy wi th metastatic disease including thickening of the gastroesophageal junction wall along with a heterog enous liver with extensive metastatic lesions and retroperitoneal lymphadenopathy consistent with kno wn malignancy with metastatic disease. 2. Circumferential bladder wall thickening correlate with urinalysis for cystitis. 3. Mild fat stranding changes around the pancreas correlate with serum lipase.
[2021-11-19] MEDS: SODIUM CHLORIDE 0.9% 1,000 ML IV SCH ×2 (05:20→17:41)
[2021-11-19] MEDS: MORPHINE SULFATE IR 15 MG TABLET PO PRN ×2 (08:09→21:15)
[2021-11-19] MEDS: PANTOPRAZOLE 40 MG/10 ML VIAL IV SCH (08:09)
[2021-11-19] MEDS: ENOXAPARIN 40 MG/0.4 ML SYRINGE SQ SCH (08:09)
--- NOTE | 2021-11-19 09:50 | CA ---
Transthoracic Echo Report Name: [place] Abarca Age: 56 Gender: M : 1965 Exam Date: 11/19/2021 07:28 Exam Location: [facility] Ht (in): 68 Wt (lb): 155 Ordering Physician: Ronen Camacho Attending/Referring Phys: Redeye Gunner Claudia Pablo RDCS Procedure CPT: Indications: BLE edema, has stage IV ca w/ mets to liver Cardiac Hx: No cardiac hx. Technical Quality: Good Contrast 1: Total Dose (mL): Contrast 2: Total Dose (mL): MEASUREMENTS (Male / Female) Normal Values 2D ECHO LV Diastolic Diameter PLAX 3.9 cm 4.2 - 5.9 / 3.9 - 5.3 cm LV Systolic Diameter PLAX 2.7 cm IVS Diastolic Thickness 1.0 cm 0.6 - 1.0 / 0.6 - 0.9 cm LVPW Diastolic Thickness 1.3 cm 0.6 - 1.0 / 0.6 - 0.9 cm LV Relative Wall Thickness 0.6 RV Internal Dim ED PLAX 1.8 cm LA Volume 33.6 cm??? 18 - 58 / 22 - 52 cm??? M-MODE Aortic Root Diameter MM 3.0 cm LA Systolic Diameter MM 3.1 cm LA Ao Ratio MM 1.0 MV E Point Septal Separation 0.5 cm AV Cusp Separation MM 2.0 cm DOPPLER AV Peak Velocity 178.2 cm/s AV Peak Gradient 12.7 mmHg LVOT Peak Velocity 112.4 cm/s LVOT Peak Gradient 5.1 mmHg MV Area PHT 3.4 cm??? MR Peak Velocity 152.0 cm/s MR Peak Gradient 9.2 mmHg Mitral E Point Velocity 92.6 cm/s Mitral A Point Velocity 56.8 cm/s Mitral E to A Ratio 1.6 MV Deceleration Time 223.3 ms MV E' Velocity 9.5 cm/s Mitral E to MV E' Ratio 9.7 TR Peak Velocity 262.8 cm/s TR Peak Gradient 27.6 mmHg Right Ventricular Systolic Press 32.6 mmHg FINDINGS Left Ventricle Left ventricular ejection fraction is estimated at 55-60 %. Normal Left ventricular size, wall thickness, systolic function with no obvious regional wall motion abnormalities. Normal Left ventricular diastolic filling pattern. Left ventricular cavity size normal. Right Ventricle The right ventricle is normal in size and function. Right Atrium The right atrium is normal in size. Left Atrium The left atrium is normal in size. Mitral Valve Structurally normal mitral valve without significant stenosis or prolapse. There is trace mitral regurgitation. Aortic Valve Structurally normal aortic valve without significant sclerosis or stenosis. There is no aortic regurgitation. Tricuspid Valve Structurally normal tricuspid valve without significant stenosis. Pulmonary artery systolic pressure is normal. Trace tricuspid regurgitation. Pulmonic Valve Structurally normal pulmonic valve without significant stenosis. There is no pulmonic regurgitation. Pericardium Normal pericardium without effusion. Aorta Normal aortic root dimension. CONCLUSIONS Normal LV systolic function Previewed by: Dr. Jad Hilton MD (Electronically Signed) Final Date: 19 November 2021 09:49
[2021-11-19 10:47] LABS: Basophils # (A) 0.02 X 10*3/uL (0.00-0.10); Basophils % (A) 0.5 %; Eosinophils # (A) 0.11 X 10*3/uL (0.04-0.35); Eosinophils % (A) 2.7 %; HCT 26.5 % (39.6-50.0); HGB 8.2 g/dL (13.0-17.0); Immature Grans, Automated 0.7 %; Lymphocytes # (A) 0.66 X 10*3/uL (0.90-5.00); Lymphocytes % (A) 16.3 %; MCH 28.2 pg (27.0-32.0); MCHC 30.9 g/dL (32.0-37.0); MCV 91.1 fL (80.0-97.0); Monocytes # (A) 0.18 X 10*3/uL (0.20-1.00); Monocytes % (A) 4.5 %; NRBC Per 100 WBC 0 /100 WBCS (0.0-0.0); Neutrophils # (A) 3.04 X 10*3/uL (1.80-7.70); Neutrophils % (A) 75.3 %; Platelet Count 146 X 10*3/uL (140-440); RBC 2.91 X 10*6/uL (4.40-5.60); RDW 18.3 % (11.5-14.5); WBC 4.04 X 10*3/uL (4.50-10.00)
[2021-11-19 10:59] LABS: African American GFR (CKD) 114.1 (60.0-200.0); Albumin 2.6 g/dL (3.8-4.9); Albumin/Globulin Ratio 1.13 (1.60-3.17); Anion Gap 11.5 mmol/L (10.00-18.00); BUN/Creat Ratio 11.63 Ratio (12.00-20.00); Blood Urea Nitrogen 9.3 mg/dL (9.0-27.0); Calcium 7.7 mg/dL (8.7-10.3); Carbon Dioxide 23.5 mmol/L (20.0-27.5); Globulin 2.3 g/dL (1.6-3.3); Non-African American GFR(CKD) 98.5 (60.0-200.0); Potassium 3.7 mmol/L (3.5-5.5); Total Bilirubin 4.4 mg/dL (0.30-1.20); Total Protein 4.9 g/dL (6.2-8.2)
[2021-11-19 13:47] VITALS: BMI 23.6
--- NOTE | 2021-11-19 17:52 | P.PN ---
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 Patient presented to the emergency department with a chief complaint of intermittent/episodicconfusion and disorientation and family concerns of jaundice and bilateral lower extremity edema.patient underwent full evaluation in the emergency department. He was found to have normocytic normochromic anemia with a hemoglobin of 8.7,hyponatremia with sodium of 134, and elevated liver enzymes with total bili of 7.0, AST of 183, ALT 121, an alkaline phosphatase of 640. Ammonia levels were normal findings at 11. Urinalysis positive for protein and bilirubin. Patient underwent bilateral lower extremity Dopplers which were negative for DVT. chest x-ray revealing mild atelectasis left lung base otherwise negative for acute cardiopulmonary process. KUB revealing nonacute abdomen with mild subsegmental atelectasis at left lung base. CT head was negative for acute intercranial process. Patient was admitted under our services of consultation oncology. Patient was seen and fully evaluated at bedside. Pt and son at bedside report concerns of bilateral lower extremity edema. Bilateral lower extremities were edematous 2-3+ pitting edema. Abdomen also slightly edematous, cirrhotic appearing. Patient reports overall fatigue and weakness. Patient sent reports increased jaundice and bilateral lower extremity swelling over the past week. He also reports that he believes this is causing intermittent episodes of confusion/forgetfulness. Patient currently alert and oriented to person, place, time, and situation. He denies having any headache, lightheadedness, dizziness, chest pain, palpitations, or shortness of breath. Patient does report diffuse abdominal pain worse in right upper quadrant and a decreased appetite. He denies having any fevers, chills, or diaphoresis. Physical exam: Vital signs reviewed and stable. General: Nontoxic, no distress and appears stated age. Derm: Skin warm and dry, jaundiced. Head: Atraumatic, normocephalic and symmetric. Eyes: EOMs intact, no lid lag, and Icteric scleras Mouth: no lip lesions, mucus membranes moist Cardiovascular: regular rate and rhythm with normal S1S2, systolic murmur, positive posterior tibial pulses bilaterally, and cap refill < 2 seconds. Lungs: Respirations even, regular, and unlabored on room air. Lungs CTA bilaterally, no rhonchi, no rales, no wheezing, and no accessory muscle usage. Abdominal: distended abdomen, tenderness to palpation right upper quadrant and epigastric region, no guarding, no appreciable organomegaly Ext: ROM intact. No gross muscle atrophy, 2-3+ bilateral lower extremity pitting edema, no contractures Neuro: Speech clear, face symmetrical and CN II-XII grossly intact with no noted focal neuro deficits Psych: Alert and oriented to person, place, time, and situation. Appropriate and pleasant affect. Assessment and Plan of Care: Jaundiced and bilateral lower extremity swelling Weakness, fatigue Transaminitis Stage IV metastatic esophageal cancer with liver metastasis Protein malnutrition, total protein 5.6, albumin 2.6. -CT abdomen and pelvis without contrast secondary to reports of worsening right upper quadrant pain -Liver ultrasound completed 11/15/21 reporting heterogeneous liver with multifocal and confluent masses or neoplasms seen, no new biliary dilation no new surrounding ascites -Oncology following -Symptomatic care and pain management -Echocardiogram revealing EF of 55-60% with no reported valvular structure abnormalities. -Continue to monitor closely with repeat a.m. labs. -Further recommendations based upon additional clinical findings. -PT/OT -Protein supplements 3 times daily between meals. The patient is admitted with an anticipated greater than 2 midnight stay for evaluation of jaundiced and bilateral lower extremity edema. Surrogate decision-maker: patient's sonJersey CODE STATUS: DO NOT RESUSCITATE/DO NOT INTUBATE DVT prophylaxis: Lovenox Discussed with: Pt, patient's family member at bedside, and RN Anticipated discharge date: Clinical course to determine Anticipated discharge place: Home A total of 39 minutes was spent on the care of this complex patient more than 50% of the time was spent in counseling and care coordination. Objective - Vital Signs Vital signs: Vital Signs Temp 98.4 F 11/19/21 04:25 Pulse 77 11/19/21 04:25 Resp 18 11/19/21 04:25 BP 114/66 11/19/21 04:25 Pulse Ox 97 11/19/21 04:25 FiO2 Intake & Output 11/18/21 11/19/21 11/19/21 18:59 06:59 18:59 Intake Total 1150 Balance 1150 Weight 70.307 kg Intake: Intake, IV Titration 900 Amount Sodium Chloride 0.9% 1, 900 000 ml @ 75 mls/hr IV . [id number] [facility] Rx#:[id number] Oral 250 Other: # Voids 1 - Labs CBC & Chem 7: 11/19/21 06:14 11/19/21 06:14 Labs: Abnormal Lab Results - Last 24 Hours (Table) 11/18/21 11/18/21 Range/Units 09:41 09:41 RBC 3.07 L (4.30-5.90) m/uL Hgb 8.7 L (13.0-17.5) gm/dL Hct 29.1 L (39.0-53.0) % MCHC 29.9 L (31.0-37.0) g/dL RDW 17.0 H (11.5-15.5) % Sodium 134 L (137-145) mmol/L Calcium 7.5 L (8.4-10.2) mg/dL Total Bilirubin 5.6 H (0.2-1.3) mg/dL AST 183 H (17-59) U/L ALT 103 H (4-49) U/L Alkaline Phosphatase 683 H (38-126) U/L Total Protein 5.6 L (6.3-8.2) g/dL Albumin 2.6 L (3.5-5.0) g/dL Microbiology - Last 24 Hours (Table) 11/18/21 02:35 Blood Culture - Preliminary Blood No Growth after 24 hours 11/18/21 02:25 Blood Culture - Preliminary Blood No Growth after 24 hours
--- NOTE | 2021-11-19 17:54 | P.PN ---
Subjective Progress Note Date: 11/19/21 Principal diagnosis: AMS, Jaundice In f/u today, pt cont to be very sleepy, he has no energy, has c/o low back and leg pain. His sister is at the bedside Objective - Vital Signs Vital signs: Vital Signs Temp 98.0 F 11/19/21 11:31 Pulse 75 11/19/21 11:31 Resp 17 11/19/21 11:31 BP 93/62 11/19/21 11:31 Pulse Ox 96 11/19/21 11:31 FiO2 Intake & Output 11/18/21 11/19/21 11/19/21 18:59 06:59 18:59 Intake Total 1150 Balance 1150 Weight 70.307 kg 70.307 kg Intake: Intake, IV Titration 900 Amount Sodium Chloride 0.9% 1, 900 000 ml @ 75 mls/hr IV . [id number] [facility] Rx#:[id number] Oral 250 Other: # Voids 1 - Constitutional General appearance: Present: average body habitus, no acute distress - EENT Eyes: Present: EOMI, scleral icterus ENT: Present: hearing grossly normal - Respiratory Respiratory: bilateral: CTA - Cardiovascular Rhythm: regular Heart sounds: normal: S1, S2 Abnormal Heart Sounds: Absent: systolic murmur, diastolic murmur, rub, S3 Gallop, S4 Gallop, click, other - Peripheral edema leg Peripheral Edema: bilateral: 1+, Pitting - Gastrointestinal General gastrointestinal: Present: decreased bowel sounds, distended, hepatomegaly, soft, tenderness - Integumentary Integumentary: Present: jaundiced - Neurologic Neurologic: Present: CNII-XII intact - Musculoskeletal Musculoskeletal: Present: generalized weakness - Psychiatric Psychiatric Comment(s): Very tired Psychiatric: Present: A&O x's 3, appropriate affect, intact judgment & insight - Labs CBC & Chem 7: 11/19/21 06:14 11/19/21 06:14 Labs: Abnormal Lab Results - Last 24 Hours (Table) 11/19/21 11/19/21 Range/Units 06:14 06:14 WBC 4.04 L (4.50-10.00) X 10*3/uL RBC 2.91 L (4.40-5.60) X 10*6/uL Hgb 8.2 L (13.0-17.0) g/dL Hct 26.5 L (39.6-50.0) % MCHC 30.9 L (32.0-37.0) g/dL RDW 18.3 H (11.5-14.5) % Lymphocytes # 0.66 L (0.90-5.00) X 10*3/uL Monocytes # 0.18 L (0.20-1.00) X 10*3/uL BUN/Creatinine Ratio 11.63 L (12.00-20.00) Ratio Calcium 7.7 L (8.7-10.3) mg/dL Total Bilirubin 4.40 H (0.30-1.20) mg/dL AST 141 H (14-35) U/L ALT 101 H (10-49) U/L Alkaline Phosphatase 658 H (41-126) U/L Total Protein 4.9 L (6.2-8.2) g/dL Albumin 2.6 L (3.8-4.9) g/dL Albumin/Globulin Ratio 1.13 L (1.60-3.17) g/dL Microbiology - Last 24 Hours (Table) 11/18/21 02:35 Blood Culture - Preliminary Blood No Growth after 24 hours 11/18/21 02:25 Blood Culture - Preliminary Blood No Growth after 24 hours - Imaging and Cardiology CT scan - abdomen: report reviewed CT scan - pelvis: report reviewed Assessment and Plan (1) Esophageal adenocarcinoma Current Visit: Yes Status: Acute Priority: High Code(s): C15.9 - MALIGNANT NEOPLASM OF ESOPHAGUS, UNSPECIFIED SNOMED Code(s): 856090146 (2) Altered mental status Current Visit: Yes Status: Acute Priority: High Code(s): R41.82 - ALTERED MENTAL STATUS, UNSPECIFIED SNOMED Code(s): 128336997 (3) Elevated LFTs Current Visit: Yes Status: Acute Priority: High Code(s): R79.89 - OTHER SPECIFIED ABNORMAL FINDINGS OF BLOOD CHEMISTRY SNOMED Code(s): 868958113 (4) Metastatic cancer Current Visit: Yes Status: Acute Priority: High Code(s): C79.9 - SECONDARY MALIGNANT NEOPLASM OF UNSPECIFIED SITE SNOMED Code(s): 638811571 Plan: [id number] to hepatic encephalopathy and possibly prolonged metabolism of narcotics. Hepatic encephalopathy from liver dysfunction/elevated liver enzymes. This is lapwh-uhcwuvvyn-rfspwox and chemo. LFTs are slowly trending down/stable today. Hope as the liver recovers from chemo that chemo has done some damage to the cancer in the liver so that liver function can improve. Reviewed pt diagnosis, prognosis with sister at bedside. All her questions were answered to her satisfaction Cont pain meds as prescribed. Wait to start marinol until pt less drowsy. Encouraged nutritional drink supplements CT discussed cystitis and describes slight disease progression. Likely not true progression, more likely acute inflammation form treatment of disease as pt has had only his 1st chemo. Sister asked if pt was going to feel this way after every chemo. Hope is that chemo will be able to eradicate enough of the cancer from the liver to provide pt with some relief of symptoms. If the cancer in his liver decreases then pt should be able to tolerate better. 3-4 cycles are typically what is needed to determine if the impact of chemo is going to be meaningful. Will see how pt does for now. Time with Patient: Greater than 30
[2021-11-20] MEDS: ENOXAPARIN 40 MG/0.4 ML SYRINGE SQ SCH (08:51)
[2021-11-20] MEDS: PANTOPRAZOLE 40 MG/10 ML VIAL IV SCH (08:51)
[2021-11-20] MEDS: MORPHINE SULFATE IR 15 MG TABLET PO PRN ×4 (08:58→22:18)
[2021-11-20 13:29] LABS: Anisocytosis Slight; HCT 29.6 % (39.0-53.0); Hypochromasia Marked; MCH 28.5 pg (25.0-35.0); MCHC 30.5 g/dL (31.0-37.0); MCV 93.1 fL (80.0-100.0); Mean Platelet Volume 8.6; Platelet Count 184 k/uL (150-450); RBC 3.18 m/uL (4.30-5.90); RDW 17.9 % (11.5-15.5); WBC 3.6 k/uL (3.8-10.6)
[2021-11-20] MEDS: SODIUM CHLORIDE 0.9% 1,000 ML IV SCH ×2 (19:59→20:01)
--- NOTE | 2021-11-20 20:25 | P.PN ---
Subjective Progress Note Date: 11/20/21 Patient was seen and examined. He reports generalized abdominal pain. Had 2 bowel movements today. Family reports poor appetite. General: [non toxic], [no distress], [appears at stated age] Derm: [warm], [dry] Head: [atraumatic], [normocephalic], [symmetric] Eyes: [EOMI], [no lid lag], [anicteric sclera] Mouth: [no lip lesion], [mucus membranes moist] Cardiovascular: [S1S2 reg], [no murmur] Lungs: [CTA bilateral], [no rhonchi, no rales] , [no accessory muscle use] Abdominal: [soft], [mildly distended, hepatomegaly, tenderness to palpation in all 4 quadrants without rebound], [no guarding], [no appreciable organomegaly] Ext: [no gross muscle atrophy], [no edema], [no contractures] Neuro: [no focal neuro deficits] Psych: [Alert], [oriented], [appropriate affect] Assessment and Plan of Care: Jaundiced and bilateral lower extremity swelling Weakness, fatigue Transaminitis Stage IV metastatic esophageal cancer with liver metastasis Protein malnutrition, total protein 5.6, albumin 2.6. -CT abdomen and pelvis without contrast secondary to reports of worsening right upper quadrant pain -Liver ultrasound completed 11/15/21 reporting heterogeneous liver with multifocal and confluent masses or neoplasms seen, no new biliary dilation no new surrounding ascites -Oncology following -Symptomatic care and pain management -Echocardiogram revealing EF of 55-60% with no reported valvular structure a bnormalities. -Continue to monitor closely with repeat a.m. labs. -Further recommendations based upon additional clinical findings. -PT/OT -Protein supplements 3 times daily between meals. CMP did not return back today. Anticipate DC home tomorrow if liver enzymes continue to improve. Objective - Vital Signs Vital signs: Vital Signs Temp 98.3 F 11/20/21 17:30 Pulse 75 11/20/21 17:30 Resp 16 11/20/21 17:30 BP 120/73 11/20/21 17:30 Pulse Ox 97 11/20/21 17:30 FiO2 Intake & Output 11/20/21 11/20/21 11/21/21 06:59 18:59 06:59 Intake Total 600 Balance 600 Intake: Intake, IV Titration 600 Amount Sodium Chloride 0.9% 1, 600 000 ml @ 75 mls/hr IV . [id number] [facility] Rx#:[id number] Other: Voiding Method Toilet Toilet # Voids 2 1 - Labs CBC & Chem 7: 11/20/21 12:18 11/19/21 06:14 Labs: Abnormal Lab Results - Last 24 Hours (Table) 11/20/21 Range/Units 12:18 WBC 3.6 L (3.8-10.6) k/uL RBC 3.18 L (4.30-5.90) m/uL Hgb 9.0 L (13.0-17.5) gm/dL Hct 29.6 L (39.0-53.0) % MCHC 30.5 L (31.0-37.0) g/dL RDW 17.9 H (11.5-15.5) % Microbiology - Last 24 Hours (Table) 11/18/21 02:35 Blood Culture - Preliminary Blood No Growth after 48 hours 11/18/21 02:25 Blood Culture - Preliminary Blood No Growth after 48 hours
[2021-11-20 20:54] LABS: African American GFR (CKD) 122.7 (60.0-200.0); Albumin 2.4 g/dL (3.8-4.9); Albumin/Globulin Ratio 1.1 (1.60-3.17); Anion Gap 13.7 mmol/L (10.00-18.00); BUN/Creat Ratio 11.21 Ratio (12.00-20.00); Blood Urea Nitrogen 7.5 mg/dL (9.0-27.0); Calcium 7.7 mg/dL (8.7-10.3); Carbon Dioxide 20.1 mmol/L (20.0-27.5); Globulin 2.2 g/dL (1.6-3.3); Non-African American GFR(CKD) 105.9 (60.0-200.0); Potassium 3.5 mmol/L (3.5-5.5); Total Bilirubin 4.4 mg/dL (0.30-1.20); Total Protein 4.5 g/dL (6.2-8.2)
--- NOTE | 2021-11-20 21:49 | P.PN ---
Subjective Progress Note Date: 11/20/21 Principal diagnosis: confusion, elevated lfts Awaiting labdraw ordered this am, trend lfts shows improvement Objective - Vital Signs Vital signs: Vital Signs Temp 98.4 F 11/20/21 04:24 Pulse 77 11/20/21 04:24 Resp 16 11/20/21 04:24 BP 143/82 11/20/21 04:24 Pulse Ox 98 11/20/21 04:24 FiO2 Intake & Output 11/19/21 11/20/21 11/20/21 18:59 06:59 18:59 Intake Total 900 Balance 900 Weight 70.307 kg Intake: Intake, IV Titration 900 Amount Sodium Chloride 0.9% 1, 900 000 ml @ 75 mls/hr IV . [id number] [facility] Rx#:[id number] Other: Voiding Method Toilet Toilet # Voids 2 2 1 - Constitutional General appearance: Present: cooperative, no acute distress - EENT Eyes: Present: EOMI ENT: Present: NA/AT - Neck Neck: Present: normal ROM - Respiratory Respiratory: bilateral: diminished - Cardiovascular Rhythm: regularly irregular - Gastrointestinal General gastrointestinal: Present: distended - Integumentary Integumentary: Present: jaundiced - Musculoskeletal Musculoskeletal: Present: generalized weakness - Psychiatric Psychiatric: Present: A&O x's 3 - Labs CBC & Chem 7: 11/20/21 12:18 11/20/21 12:18 Labs: Microbiology - Last 24 Hours (Table) 11/18/21 02:35 Blood Culture - Preliminary Blood No Growth after 48 hours 11/18/21 02:25 Blood Culture - Preliminary Blood No Growth after 48 hours Assessment and Plan (1) Altered mental status Narrative/Plan: intermittently improved Current Visit: Yes Status: Acute Priority: High Code(s): R41.82 - ALTERED MENTAL STATUS, UNSPECIFIED SNOMED Code(s): 213642603 (2) Metastatic cancer Narrative/Plan: Status post one cycle of FOLFOX, hold until improved Current Visit: Yes Status: Acute Priority: High Code(s): C79.9 - SECONDARY MALIGNANT NEOPLASM OF UNSPECIFIED SITE SNOMED Code(s): 194783906 (3) Esophageal mass Current Visit: No Status: Acute Code(s): K22.89 - OTHER SPECIFIED DISEASE OF ESOPHAGUS SNOMED Code(s): 648667235 (4) Elevated LFTs Narrative/Plan: Improving, await labs today Current Visit: Yes Status: Acute Priority: High Code(s): R79.89 - OTHER S PECIFIED ABNORMAL FINDINGS OF BLOOD CHEMISTRY SNOMED Code(s): 553926682 Plan: Liver function is improving, if stable ok for discharge from oncology and will attempt to remain on schedule with next chemo, office notified to schedule patient to be seen prior to next FOLFOX on 11/25 Discussed with patient and son Discussed with primary team >30 minute
[2021-11-21 05:25] VITALS: BP 128/81; PULSE 71; RESP 15; TEMP 98.3
[2021-11-21] MEDS: ENOXAPARIN 40 MG/0.4 ML SYRINGE SQ SCH (08:25)
[2021-11-21] MEDS: PANTOPRAZOLE 40 MG/10 ML VIAL IV SCH (08:25)
[2021-11-21] MEDS: MORPHINE SULFATE IR 15 MG TABLET PO PRN (08:27)
[2021-11-21] MEDS: SODIUM CHLORIDE 0.9% 1,000 ML IV SCH (08:31)
[2021-11-21 08:58] LABS: HCT 28.3 % (39.6-50.0); HGB 8.5 g/dL (13.0-17.0); MCH 27.4 pg (27.0-32.0); MCV 91.3 fL (80.0-97.0); Mean Platelet Volume 10.3 fL (9.5-12.2); NRBC Per 100 WBC 1.1 /100 WBCS (0.0-0.0); Platelet Count 183 X 10*3/uL (140-440); RDW 19.1 % (11.5-14.5); WBC 3.56 X 10*3/uL (4.50-10.00)
[2021-11-21 09:45] LABS: African American GFR (CKD) 128.4 (60.0-200.0); Albumin 2.5 g/dL (3.8-4.9); Albumin/Globulin Ratio 1.19 (1.60-3.17); Anion Gap 8.4 mmol/L (10.00-18.00); BUN/Creat Ratio 11.17 Ratio (12.00-20.00); Blood Urea Nitrogen 6.7 mg/dL (9.0-27.0); Calcium 7.7 mg/dL (8.7-10.3); Carbon Dioxide 23.6 mmol/L (20.0-27.5); Globulin 2.1 g/dL (1.6-3.3); Non-African American GFR(CKD) 110.8 (60.0-200.0); Potassium 3.6 mmol/L (3.5-5.5); Total Bilirubin 3.8 mg/dL (0.30-1.20); Total Protein 4.6 g/dL (6.2-8.2)
--- NOTE | 2021-11-21 10:48 | US ---
EXAMINATION TYPE: US abdomen limited DATE OF EXAM: 11/21/2021 COMPARISON: NONE CLINICAL HISTORY: ascites. Jaundice, known liver mets Small amount of fluid seen on the right side of abd after all four quadrants were imaged. IMPRESSION: Small abdominal ascites
--- NOTE | 2021-11-21 11:08 | P.DS ---
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 Patient presented to the emergency department with a chief complaint of intermittent/episodicconfusion and disorientation and family concerns of jaundice and bilateral lower extremity edema.patient underwent full evaluation in the emergency department. He was found to have normocytic normochromic anemia with a hemoglobin of 8.7,hyponatremia with sodium of 134, and elevated liver enzymes with total bili of 7.0, AST of 183, ALT 121, an alkaline phosphatase of 640. Ammonia levels were normal findings at 11. Urinalysis positive for protein and bilirubin. Patient underwent bilateral lower extremity Dopplers which were negative for DVT. chest x-ray revealing mild atelectasis left lung base otherwise negative for acute cardiopulmonary process. KUB revealing nonacute abdomen with mild subsegmental atelectasis at left lung base. CT head was negative for acute intercranial process. Patient was admitted under our services of consultation oncology. Patient was seen and fully evaluated at bedside. Pt and son at bedside report concerns of bilateral lower extremity edema. Bilateral lower extremities were edematous 2-3+ pitting edema. Abdomen also slightly edematous, cirrhotic appearing. Patient reports overall fatigue and weakness. Patient sent reports increased jaundice and bilateral lower extremity swelling over the past week. He also reports that he believes this is causing intermittent episodes of confusion/forgetfulness. Patient currently alert and oriented to person, place, time, and situation. He denies having any headache, lightheadedness, dizziness, chest pain, palpitations, or shortness of breath. Patient does report diffuse abdominal pain worse in right upper quadrant and a decreased appetite. He denies having any fevers, chills, or diaphoresis. Liver ultrasound completed 11/15/21 reporting heterogeneous liver with multifocal and confluent masses or neoplasms seen, no new biliary dilation no new surrounding ascites. Echocardiogram revealing EF of 55-60% with no reported valvular structure abnormalities. CT abdomen and pelvis showed mild progression of known malignancy with metastatic disease including thickening of the GE junction wall. Oncology was consulted and followed the patient during his hospitalization. His liver function remains stable. Patient was seen and examined on 11/21/2021. He reports diffuse abdominal pain. He reports 2 bowel movements today. Abdominal ultrasound showed small ascites. General: [non toxic], [no distress], [appears at stated age] Derm: [warm], [dry] Head: [atraumatic], [normocephalic], [symmetric] Eyes: [EOMI], [no lid lag], [anicteric sclera] Mouth: [no lip lesion], [mucus membranes moist] Cardiovascular: [S1S2 reg], [no murmur] Lungs: [CTA bilateral], [no rhonchi, no rales] , [no accessory muscle use] Abdominal: [soft], [mildly distended, hepatomegaly, tenderness to palpation in all 4 quadrants without rebound], [no guarding], [no appreciable organomegaly] Ext: [no gross muscle atrophy], [no edema], [no contractures] Neuro: [no focal neuro deficits] Psych: [Alert], [oriented], [appropriate affect] Discharge Diagnosis: Jaundiced and bilateral lower extremity swelling Weakness, fatigue Transaminitis Stage IV metastatic esophageal cancer with liver metastasis Protein malnutrition This complex discharge took 45 minutes to complete. Pertinent Studies: Venous duplex CXR KUB Brain CT CT AP Abd US Patient Condition at Discharge: Stable Plan - Discharge Summary Discharge Rx Participant: No New Discharge Prescriptions: New Sennosides-Docusate Sodium [Senokot-S] 2 each PO BID #60 tab Continue fentaNYL 12MCG/HR PATCH [Duragesic 12MCG/HR] 1 patch TRANSDERM Q72H Pregabalin [Lyrica] 75 mg PO BID PRN PRN Reason: Pain Morphine Sulfate Ir [MSIR] 15 mg PO Q4H PRN PRN Reason: Pain Lidocaine-Prilocaine Cream [Emla Cream 2.5%/2.5%] 1 applic TOPICAL DAILY PRN PRN Reason: port access fentaNYL 25MCG/HR PATCH [Duragesic 25MCG/HR] 1 patch TRANSDERM Q72H Pantoprazole [Protonix] 40 mg PO DAILY Ondansetron [Zofran] 4 mg PO Q4H PRN PRN Reason: Nausea Discharge Medication List fentaNYL 12MCG/HR PATCH [Duragesic 12MCG/HR] 1 patch TRANSDERM Q72H 11/01/21 [History] Lidocaine-Prilocaine Cream [Emla Cream 2.5%/2.5%] 1 applic TOPICAL DAILY PRN 11/18/21 [History] Morphine Sulfate Ir [MSIR] 15 mg PO Q4H PRN 11/18/21 [History] Ondansetron [Zofran] 4 mg PO Q4H PRN 11/18/21 [History] Pantoprazole [Protonix] 40 mg PO DAILY 11/18/21 [History] Pregabalin [Lyrica] 75 mg PO BID PRN 11/18/21 [History] fentaNYL 25MCG/HR PATCH [Duragesic 25MCG/HR] 1 patch TRANSDERM Q72H 11/18/21 [History] Sennosides-Docusate Sodium [Senokot-S] 2 each PO BID #60 tab 11/21/21 [Rx] Follow up Appointment(s)/Referral(s): Kwaku Regalado MD [STAFF PHYSICIAN] - 11/22/21 11:30 am (Patient also has an appointment on December 04 at 1:45 for Chemo.) [facility] [NON-STAFF] - 1 Week None,Stated [Primary Care Provider] - 1-2 days Patient Instructions/Handouts: Senna (By mouth) Activity/Diet/Wound Care/Special Instructions: Diet: Regular Follow-up with Primary Care Physician within 1-2 days of discharge. Follow-up with oncology within 1 week of discharge. Take all medications as advised. Come back to the ER for worsening abdominal pain, intractable nausea and vomiting, chest pain, shortness of breath or lightheadedness. Discharge Disposition: HOME SELF-CARE
--- NOTE | 2021-11-21 12:15 | CDI ---
Documentation Clarification Form Date: 11/21/2021 12:01:57 PM From: Milagros Grijalva CCS, CCDS Admit Date: 11/18/2021 01:30:00 AM Patient Name: Jersey Abarca Visit Number: [id number] Discharge Date: ATTENTION: The Clinical Documentation Specialists (CDI) and [facility] Coding Staff appreciate your assistance in clarifying documentation. Please respond to the clarification below the line at the bottom and electronically sign. The CDI & [facility] Coding staff will review the response and follow-up if needed. Please note: Queries are made part of the Legal Health Record. If you have any questions, please contact the author of this message via ITS. Dr. Adriana Stein: Protein Malnutrition is documented in the 11/18 H/P and in subsequent Progress Notes on 11/19 & 11/20 and also in the 11/21 Discharge Summary without further severity specified. Additional clarification regarding the severity of Malnutrition is requested. History/Risk Factors per the 11/18 H/P: Recently diagnosed Stage IV metastatic Esophageal Cancer with Liver Metastasis, Hypertension, Chronic back pain and Former smoker. Clinical Indicators: Presented to the ED on 11/17 with confusion, jaundice and leg edema, recent diagnosis of stage IV metastatic esophageal cancer with liver mets, started chemotherapy last week. Having some confusion & disorientation intermittently. Admit with concern for developing encephalopathy per Oncologist, Metastatic Cancer, Altered mental status and leg edema. 11/18 Nursing Nutritional & Feeding Assessment: Consumed 25% breakfast, 75% Dinner, refused meals on 11/19. Reportedly eating poorly & unsure of weight loss. Currently on regular diet supplemented with Premier protein shakes TID. Per the patient's sister he is thinner than normal. Appetite is poor due to pain in esophagus r/t cancer. No reported difficulty swallowing or chewing. Weight: 70.307 kg per pt. Height 5 ft 8 in. BMI: 23.6. Calculated IBW: 70 mg @ 100% IBW. Inadequate nutrition or oral intake, supplemented with Ensure enlived TID LAB: Total Protein 6.2, Albumin 3.0. Treatment 11/18: Dietary supplement as above, RD not consulted, IV Protonix 40 mg x1, IV Na Chl 1,000 mls @ 75 mls/hr q13H, Fentanyl patch q72H. Please clarify the Severity of documented Protein Malnutrition, if known: [ ] Mild Protein-Calorie Malnutrition [ ] Moderate Protein-Calorie Malnutrition [ ] Other condition, please specify [ ] Unable to Determine (Template Last Revised: June 2020) Moderate Protein-Calorie Malnutrition MTDD
--- NOTE | 2021-11-21 12:57 | P.PN ---
Subjective Progress Note Date: 11/21/21 Principal diagnosis: confusion, elevated lfts Patient's liver function continues to improve, son at bedside Objective - Vital Signs Vital signs: Vital Signs Temp 98.3 F 11/21/21 04:23 Pulse 71 11/21/21 04:23 Resp 15 11/21/21 04:23 BP 128/81 11/21/21 04:23 Pulse Ox 99 11/21/21 04:23 FiO2 Intake & Output 11/20/21 11/21/21 11/21/21 18:59 06:59 18:59 Intake Total 600 1140 Balance 600 1140 Intake: Intake, IV Titration 600 900 Amount Sodium Chloride 0.9% 1, 600 900 000 ml @ 75 mls/hr IV . [id number] SHIMON Rx#:[id number] Oral 240 Other: Voiding Method Toilet Toilet # Voids 1 1 - Labs CBC & Chem 7: 11/21/21 05:49 11/21/21 05:49 Labs: Abnormal Lab Results - Last 24 Hours (Table) 11/20/21 11/20/21 11/21/21 Range/Units 12:18 12:18 05:49 WBC 3.6 L 3.56 L (3.8-10.6) k/uL RBC 3.18 L 3.10 L (4.30-5.90) m/uL Hgb 9.0 L 8.5 L (13.0-17.5) gm/dL Hct 29.6 L 28.3 L (39.0-53.0) % MCHC 30.5 L 30.0 L (31.0-37.0) g/dL RDW 17.9 H 19.1 H (11.5-15.5) % Absolute Nucleated RBC 0.04 H (0.00-0.00) X 10*3/uL NRBC/100 WBC Diff 1.1 H (0.0-0.0) /100 WBCS Sodium (135-145) mmol/L Anion Gap (10.00-18.00) mmol/L BUN 7.5 L (9.0-27.0) mg/dL BUN/Creatinine Ratio 11.21 L (12.00-20.00) Ratio Calcium 7.7 L (8.7-10.3) mg/dL Total Bilirubin 4.40 H (0.30-1.20) mg/dL AST 125 H (14-35) U/L ALT 77 H (10-49) U/L Alkaline Phosphatase 675 H (41-126) U/L Total Protein 4.5 L (6.2-8.2) g/dL Albumin 2.4 L (3.8-4.9) g/dL Albumin/Globulin Ratio 1.10 L (1.60-3.17) g/dL 11/21/21 Range/Units 05:49 WBC (3.8-10.6) k/uL RBC (4.30-5.90) m/uL Hgb (13.0-17.5) gm/dL Hct (39.0-53.0) % MCHC (31.0-37.0) g/dL RDW (11.5-15.5) % Absolute Nucleated RBC (0.00-0.00) X 10*3/uL NRBC/100 WBC Diff (0.0-0.0) /100 WBCS Sodium 134 L (135-145) mmol/L Anion Gap 8.40 L (10.00-18.00) mmol/L BUN 6.7 L (9.0-27.0) mg/dL BUN/Creatinine Ratio 11.17 L (12.00-20.00) Ratio Calcium 7.7 L (8.7-10.3) mg/dL Total Bilirubin 3.80 H (0.30-1.20) mg/dL AST 127 H (14-35) U/L ALT 81 H (10-49) U/L Alkaline Phosphatase 665 H (41-126) U/L Total Protein 4.6 L (6.2-8.2) g/dL Albumin 2.5 L (3.8-4.9) g/dL Albumin/Globulin Ratio 1.19 L (1.60-3.17) g/dL Microbiology - Last 24 Hours (Table) 11/18/21 02:25 Blood Culture - Preliminary Blood No Growth after 72 hours 11/18/21 02:35 Blood Culture - Preliminary Blood No Growth after 72 hours Assessment and Plan (1) Altered mental status Narrative/Plan: intermittently improved Current Visit: Yes Status: Acute Priority: High Code(s): R41.82 - ALTERED MENTAL STATUS, UNSPECIFIED SNOMED Code(s): 907611100 (2) Metastatic cancer Narrative/Plan: Status post one cycle of FOLFOX, hold until improved Current Visit: Yes Status: Acute Priority: High Code(s): C79.9 - SECONDARY MALIGNANT NEOPLASM OF UNSPECIFIED SITE SNOMED Code(s): 858420601 (3) Esophageal mass Current Visit: No Status: Acute Code(s): K22.89 - OTHER SPECIFIED DISEASE OF ESOPHAGUS SNOMED Code(s): 879077974 (4) Elevated LFTs Narrative/Plan: Improving, await labs today Current Visit: Yes Status: Acute Priority: High Code(s): R79.89 - OTHER SPECIFIED ABNORMAL FINDINGS OF BLOOD CHEMISTRY SNOMED Code(s): 494572163 Plan: Liver function is improving, if stable ok for discharge from oncology and will attempt to remain on schedule with next chemo, office notified to schedule patient to be seen prior to next FOLFOX on 11/25 Discussed with patient and son Discussed with primary team, will repeat ultrasound abdomien for possible need of paracentesis prior to discharge, then ok for discharge Dr. Mahmood: I have completed the full history and physical and developed the above impression and plan, agree with dictation dictated as a ascribe.
[2021-11-21] MEDS ORDERED: SENNOSIDES-DOCUSATE SODIUM 1 EACH TAB PO SCH (21:00)
== END 2021-11-21 14:43 | disposition home or self-care (01) | DRG 436 ==
LOC: EC 22:44 → 5NMEDONC 11-18 01:18 → OBSVTOIN 11-18 01:30 → 5NMEDONC 11-18 05:42
PROVIDERS: ADMIT Internal Medicine; ATTEND Internal Medicine
DX: C78.7 Secondary malignant neoplasm of liver and intrahepatic bile duct (principal); C15.9 Malignant neoplasm of esophagus, unspecified; E44.0 Moderate protein-calorie malnutrition; R18.8 Other ascites; E87.1 Hypo-osmolality and hyponatremia; J98.11 Atelectasis; K72.90 Hepatic failure, unspecified without coma; I10 Essential (primary) hypertension; D63.0 Anemia in neoplastic disease; G89.29 Other chronic pain; M79.89 Other specified soft tissue disorders; R41.0 Disorientation, unspecified; M54.9 Dorsalgia, unspecified; K59.00 Constipation, unspecified; Z66 Do not resuscitate; Z68.23 Body mass index [BMI] 23.0-23.9, adult; Z86.010 Personal history of colon polyps; Z92.21 Personal history of antineoplastic chemotherapy; Z98.890 Other specified postprocedural states; Z87.891 Personal history of nicotine dependence; Z81.8 Family history of other mental and behavioral disorders; Z80.8 Family history of malignant neoplasm of other organs or systems; Z79.899 Other long term (current) drug therapy; Z79.891 Long term (current) use of opiate analgesic
CPT/HCPCS: 36415; 70470; 71046; 74018; 74176; 76705; 80053; 81003; 82140; 82150; 83605; 83690; 83735; 85025; 85027; 85610; 85730; 86850; 86900; 86901; 87040; 93306; 93970; 96361; 96374; 99285

== ENCOUNTER 2021-12-22 20:12 | Inpatient (IN) | payer OTHER ==
--- NOTE | 2021-12-22 21:10 | ED ---
General Adult HPI - General Chief complaint: Altered Mental Status Stated complaint: AMS,Cancer patient Time Seen by Provider: 12/22/21 21:10 Source: patient, family Mode of arrival: wheelchair Limitations: altered mental status - History of Present Illness Initial comments: Patient presents to the ED with his son and [id number] for evaluation. Per son, the patient has become more confused since yesterday. Per son, the patient has also become more jaundice since yesterday. 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 Son states that the patient is followed by Dr. Regalado (oncology). Son states the patient last had a chemotherapy treatment one month ago, and he is scheduled to have another chemotherapy treatment tomorrow. Son denies known trauma or head injury. Son denies known fever or vomiting. Patient is confused on arrival to the ED, and he is only answering some questions appropriately. Patient is able to tell me his name, and he is aware that he is in the hospital. Patient denies having any pain when asked. History from the patient is otherwise very limited. - Related Data Home Medications Medication Instructions Recorded Confirmed fentaNYL 12MCG/HR PATCH [Duragesic 1 patch TRANSDERM Q72H 11/01/21 11/18/21 12MCG/HR] Lidocaine-Prilocaine Cream [Emla 1 applic TOPICAL DAILY PRN 11/18/21 11/18/21 Cream 2.5%/2.5%] Morphine Sulfate Ir [MSIR] 15 mg PO Q4H PRN 11/18/21 11/18/21 Ondansetron [Zofran] 4 mg PO Q4H PRN 11/18/21 11/18/21 Pantoprazole [Protonix] 40 mg PO DAILY 11/18/21 11/18/21 Pregabalin [Lyrica] 75 mg PO BID PRN 11/18/21 11/18/21 fentaNYL 25MCG/HR PATCH [Duragesic 1 patch TRANSDERM Q72H 11/18/21 11/18/21 25MCG/HR] Previous Rx's Medication Instructions Recorded Sennosides-Docusate Sodium 2 each PO BID #60 tab 11/21/21 [Senokot-S] Allergies Allergy/AdvReac Type Severity Reaction Status Date / Time No Known Allergies Allergy Verified 12/22/21 20:19 Review of Systems ROS Statement: Those systems with pertinent positive or pertinent negative responses have been documented in the HPI. ROS Other: All systems not noted in ROS Statement are negative. Limitations: ROS unobtainable due to patients medical condition Past Medical History Past Medical History: Cancer, Hypertension Additional Past Medical History / Comment(s): Recent diagnosis of esophageal cancer with liver metastasis/recieved first chemo treatments on 11/11/21, recent increased weakness/near falls, chronic back pain. History of Any Multi-Drug Resistant Organisms: None Reported Past Surgical History: Back Surgery Additional Past Surgical History / Comment(s): COLONOSCOPies/EGDs, 11/01/21 port placed, kyphoplasty Past Anesthesia/Blood Transfusion Reactions: No Reported Reaction Past Psychological History: Anxiety, Depression Smoking Status: Former smoker Past Alcohol Use History: None Reported Past Drug Use History: None Reported - Past Family History Mother Family Medical History: Dementia Father Family Medical History: Cancer Additional Family Medical History / Comment(s): Skin cancer General Exam Limitations: no limitations General appearance: alert Head exam: Present: atraumatic, normocephalic Eye exam: Present: PERRL, EOMI, scleral icterus ENT exam: Present: mucous membranes dry Neck exam: Present: other (Trachea is in midline). Absent: tenderness, meningismus Respiratory exam: Present: normal lung sounds bilaterally. Absent: respiratory distress, wheezes, rales, rhonchi, stridor Cardiovascular Exam: Present: normal rhythm, tachycardia, normal heart sounds, other (Normal radial pulses bilaterally) GI/Abdominal exam: Present: soft. Absent: distended, tenderness, guarding Extremities exam: Present: other (Bilateral lower extremity pitting edema). Absent: tenderness Neurological exam: Present: alert, CN II-XII intact, other (Patient is oriented to person and place, but not to time). Absent: motor sensory deficit Psychiatric exam: Present: normal affect, normal mood Skin exam: Present: warm, dry, intact, other (Jaundice) Course Vital Signs 12/22/21 12/22/21 12/22/21 20:19 21:24 22:00 Temperature 97.3 F L Pulse Rate 116 H 103 H 98 Respiratory 20 20 22 Rate Blood Pressure 136/89 110/78 110/78 O2 Sat by Pulse 96 97 97 Oximetry 12/22/21 23:00 Temperature Pulse Rate 99 Respiratory 22 Rate Blood Pressure 121/95 O2 Sat by Pulse 98 Oximetry - Reevaluation(s) Reevaluation #1: 12/23/21 00:04 Case, H&P, test results and ED management thus far were discussed with Dr. Boles. He accepts hospital admission. He agrees with oncology consultation. He has no further recommendations at this time. 12/23/21 00:08 Patient and family were made aware of the patient's test results. Patient remai ns alert and breathing comfortably. They all agree with hospital admission at this time. EKG Findings - EKG Comments: EKG Findings:: Sinus tachycardia, ventricular rate of 115 bpm, normal UT and QRS intervals, normal QT interval, rightward axis, no ST or T-wave abnormality Procedures - Sepsis Sepsis Focused Exam #1 Time Sepsis Criteria Met: 00:00 Sepsis Focused Exam Date: 12/23/21 Sepsis Focused Exam Time: 00:55 (30 mL/kg fluid bolus complete) Sepsis Focused Exam Complete: Yes Vital Signs & RN Notes Reviewed: Yes Capillary Refill: < 2 Seconds: Fingers, Toes Peripheral Pulses: Normal: Radial (R), Radial (L) Skin Color: Jaundice Respiratory Exam: normal lung sounds Cardiovascular Exam: regular rate, normal rhythm, normal heart sounds Medical Decision Making - Medical Decision Making I suspect that the patient's altered mental status is likely due to hepatic ence phalopathy secondary to metastatic disease, as well as possible pneumonia and sepsis. Patient's chest x-ray and CT show basilar infiltrates consistent with pneumonia. Patient has a leukocytosis of 28.8, as well as an elevated lactic acid level, but he is normotensive. Patient has been bolused with 30 mL/kg of normal saline in the ED per sepsis protocol. IV Zosyn and IV azithromycin orders have also been placed. Patient's family has been updated, and they agree with hospital admission at this time. Dr. Boles has accepted hospital admission. - Lab Data Result diagrams: 12/22/21 21:24 12/22/21 21:24 Lab Results 12/22/21 12/22/21 12/22/21 Range/Units 21:24 21:24 21:24 WBC 28.8 H (3.8-10.6) k/uL RBC 4.42 (4.30-5.90) m/uL Hgb 12.0 L D (13.0-17.5) gm/dL Hct 41.2 (39.0-53.0) % MCV 93.4 (80.0-100.0) fL MCH 27.1 (25.0-35.0) pg MCHC 29.0 L (31.0-37.0) g/dL RDW 19.2 H (11.5-15.5) % Plt Count 393 D (150-450) k/uL MPV 7.7 Neutrophils % 88 % Lymphocytes % 4 % Monocytes % 5 % Eosinophils % 1 % Basophils % 1 % Neutrophils # 25.4 H (1.3-7.7) k/uL Lymphocytes # 1.2 (1.0-4.8) k/uL Monocytes # 1.4 H (0-1.0) k/uL Eosinophils # 0.3 (0-0.7) k/uL Basophils # 0.2 (0-0.2) k/uL Hypochromasia Marked Anisocytosis Slight PT 14.4 H (9.0-12.0) sec INR 1.4 H (<1.2) APTT 26.3 (22.0-30.0) sec Sodium 132 L (137-145) mmol/L Potassium 5.0 (3.5-5.1) mmol/L Chloride 91 L (98-107) mmol/L Carbon Dioxide 21 L (22-30) mmol/L Anion Gap 20 mmol/L BUN 33 H (9-20) mg/dL Creatinine 1.34 H (0.66-1.25) mg/dL Est GFR (CKD-EPI)AfAm 68 (>60 ml/min/1.73 sqM) Est GFR (CKD-EPI)NonAf 58 (>60 ml/min/1.73 sqM) Glucose 91 (74-99) mg/dL Plasma Lactic Acid True (0.7-2.0) mmol/L Calcium 9.3 (8.4-10.2) mg/dL Total Bilirubin 8.0 H (0.2-1.3) mg/dL AST 1384 H (17-59) U/L ALT 190 H (4-49) U/L Alkaline Phosphatase 914 H (38-126) U/L Ammonia (<30) umol/L Troponin I (0.000-0.034) ng/mL NT-Pro-B Natriuret Pep pg/mL Total Protein 6.8 (6.3-8.2) g/dL Albumin 3.2 L (3.5-5.0) g/dL Lipase 89 (23-300) U/L Serum Alcohol <10 mg/dL 12/22/21 12/22/21 12/22/21 Range/Units 21:24 21:24 21:24 WBC (3.8-10.6) k/uL RBC (4.30-5.90) m/uL Hgb (13.0-17.5) gm/dL Hct (39.0-53.0) % MCV (80.0-100.0) fL MCH (25.0-35.0) pg MCHC (31.0-37.0) g/dL RDW (11.5-15.5) % Plt Count (150-450) k/uL MPV Neutrophils % % Lymphocytes % % Monocytes % % Eosinophils % % Basophils % % Neutrophils # (1.3-7.7) k/uL Lymphocytes # (1.0-4.8) k/uL Monocytes # (0-1.0) k/uL Eosinophils # (0-0.7) k/uL Basophils # (0-0.2) k/uL Hypochromasia Anisocytosis PT (9.0-12.0) sec INR (<1.2) APTT (22.0-30.0) sec Sodium (137-145) mmol/L Potassium (3.5-5.1) mmol/L Chloride (98-107) mmol/L Carbon Dioxide (22-30) mmol/L Anion Gap mmol/L BUN (9-20) mg/dL Creatinine (0.66-1.25) mg/dL Est GFR (CKD-EPI)AfAm (>60 ml/min/1.73 sqM) Est GFR (CKD-EPI)NonAf (>60 ml/min/1.73 sqM) Glucose (74-99) mg/dL Plasma Lactic Acid True (0.7-2.0) mmol/L Calcium (8.4-10.2) mg/dL Total Bilirubin (0.2-1.3) mg/dL AST (17-59) U/L ALT (4-49) U/L Alkaline Phosphatase (38-126) U/L Ammonia 59 H (<30) umol/L Troponin I <0.012 (0.000-0.034) ng/mL NT-Pro-B Natriuret Pep 413 pg/mL Total Protein (6.3-8.2) g/dL Albumin (3.5-5.0) g/dL Lipase (23-300) U/L Serum Alcohol mg/dL 12/22/21 Range/Units 23:04 WBC (3.8-10.6) k/uL RBC (4.30-5.90) m/uL Hgb (13.0-17.5) gm/dL Hct (39.0-53.0) % MCV (80.0-100.0) fL MCH (25.0-35.0) pg MCHC (31.0-37.0) g/dL RDW (11.5-15.5) % Plt Count (150-450) k/uL MPV Neutrophils % % Lymphocytes % % Monocytes % % Eosinophils % % Basophils % % Neutrophils # (1.3-7.7) k/uL Lymphocytes # (1.0-4.8) k/uL Monocytes # (0-1.0) k/uL Eosinophils # (0-0.7) k/uL Basophils # (0-0.2) k/uL Hypochromasia Anisocytosis PT (9.0-12.0) sec INR (<1.2) APTT (22.0-30.0) sec Sodium (137-145) mmol/L Potassium (3.5-5.1) mmol/L Chloride (98-107) mmol/L Carbon Dioxide (22-30) mmol/L Anion Gap mmol/L BUN (9-20) mg/dL Creatinine (0.66-1.25) mg/dL Est GFR (CKD-EPI)AfAm (>60 ml/min/1.73 sqM) Est GFR (CKD-EPI)NonAf (>60 ml/min/1.73 sqM) Glucose (74-99) mg/dL Plasma Lactic Acid True 6.9 H* (0.7-2.0) mmol/L Calcium (8.4-10.2) mg/dL Total Bilirubin (0.2-1.3) mg/dL AST (17-59) U/L ALT (4-49) U/L Alkaline Phosphatase (38-126) U/L Ammonia (<30) umol/L Troponin I (0.000-0.034) ng/mL NT-Pro-B Natriuret Pep pg/mL Total Protein (6.3-8.2) g/dL Albumin (3.5-5.0) g/dL Lipase (23-300) U/L Serum Alcohol mg/dL - Radiology Data Chest x-ray: There is some minimal interstitial infiltrates and subsegmental a telectasis with no adverse change compared to old exam. Noncontrast head CT: Negative unenhanced head CT scan. No adverse change. CT abdomen/pelvis with IV contrast: Evidence of hepatomegaly and diffuse hepatic metastatic disease. There is abdominal ascites which is significantly increased compared to the old exam. No bowel obstruction. There is increased interstitial infiltrates at the lung bases compared to old exam. Subcutaneous edema around abdomen increased compared to old exam. Critical Care Time Critical Care Time: Yes Total Critical Care Time: 40 Disposition Clinical Impression: Altered mental status, Metastatic cancer, Pneumonia, Elevated LFTs, Hepatic encephalopathy Narrative: Suspected sepsis Disposition: ADMITTED IP TO THIS HOSP Condition: Stable Is patient prescribed a controlled substance at d/c from ED?: No Time of Disposition: 00:04
--- NOTE | 2021-12-22 21:47 | CT ---
EXAMINATION TYPE: CT brain wo con DATE OF EXAM: 12/22/2021 COMPARISON: 11/18/2021 HISTORY: ams CT DLP: 1127.4 mGycm Automated exposure control for dose reduction was used. Ventricles have normal size. There is no mass effect or midline shift. No sign of intracranial hemorr nicole. The rim is intact. Skull base is intact. There is normal aeration of the mastoid sinuses. There is mild atrophy. IMPRESSION: Negative unenhanced head CT scan. No adverse change.
--- NOTE | 2021-12-22 21:48 | XR ---
EXAMINATION TYPE: XR chest 1V portable DATE OF EXAM: 12/22/2021 COMPARISON: 11/18/2021 HISTORY: Altered mental status TECHNIQUE: Single view FINDINGS: Heart is normal. There is some coarsening of interstitial markings. No heart failure. There is right central venous catheter with tip in the superior vena cava. No pleural effusion. IMPRESSION: There is some minimal interstitial infiltrates and subsegmental atelectasis with no adver se change compared to old exam.
[2021-12-22 21:54] LABS: Anisocytosis Slight; Basophils # (A) 0.2 k/uL (0-0.2); Basophils % (A) 1 %; Eosinophils # (A) 0.3 k/uL (0-0.7); Eosinophils % (A) 1 %; HCT 41.2 % (39.0-53.0); Hypochromasia Marked; Lymphocytes # (A) 1.2 k/uL (1.0-4.8); Lymphocytes % (A) 4 %; MCH 27.1 pg (25.0-35.0); MCV 93.4 fL (80.0-100.0); Mean Platelet Volume 7.7; Monocytes # (A) 1.4 k/uL (0-1.0); Monocytes % (A) 5 %; Neutrophils # (A) 25.4 k/uL (1.3-7.7); Neutrophils % (A) 88 %; RBC 4.42 m/uL (4.30-5.90); RDW 19.2 % (11.5-15.5); WBC 28.8 k/uL (3.8-10.6)
[2021-12-22 22:03] LABS: INR 1.4 (<1.2); Partial Thromboplastin Time 26.3 sec (22.0-30.0); Prothrombin Time 14.4 sec (9.0-12.0)
[2021-12-22 22:08] LABS: ALT 190 U/L (4-49); African American GFR (CKD) 68 (>60 ml/min/1.73 sqM); Albumin 3.2 g/dL (3.5-5.0); Alcohol <10 mg/dL; Alkaline Phosphatase 914 U/L (38-126); Anion Gap 20 mmol/L; Blood Urea Nitrogen 33 mg/dL (9-20); Calcium 9.3 mg/dL (8.4-10.2); Carbon Dioxide 21 mmol/L (22-30); Chloride 91 mmol/L (98-107); Glucose 91 mg/dL (74-99); Lipase 89 U/L (23-300); Non-African American GFR(CKD) 58 (>60 ml/min/1.73 sqM); Sodium 132 mmol/L (137-145); Total Protein 6.8 g/dL (6.3-8.2)
[2021-12-22 22:14] LABS: AST 1384 U/L (17-59)
[2021-12-22 22:15] LABS: Platelet Count 393 k/uL (150-450)
[2021-12-22] MEDS ORDERED: SODIUM CHLORIDE 0.9% 1,000 ML IV ONE (22:29)
--- NOTE | 2021-12-22 23:31 | CT ---
EXAMINATION TYPE: CT abdomen pelvis w con DATE OF EXAM: 12/22/2021 COMPARISON: 11/18/2021 HISTORY: RECENT DX OF ESOPHAGEAL CA W/ LIVER METS, FIRST CHEMO WAS 11/11/21, INCREASED WEAKNESS, NEAR F ALLS, CHRONIC BACK PAIN, ELEVATED LFTs CT DLP: 813.2 mGycm Automated exposure control for dose reduction was used. CONTRAST: Performed with IV Contrast, patient injected with 80 mL of Isovue 300. Images obtained from the diaphragm to the floor the pelvis with IV contrast. There is heterogeneity throughout the liver that is consistent with diffuse metastatic disease. Liver is enlarged. Spleen is intact. No pancreatic mass. Bladder distends smoothly. There is abdominal asc ites. There is subcutaneous edema around the abdomen. Kidneys show satisfactory contrast opacificatio n. No hydronephrosis. Ureters are not dilated. No retroperitoneal adenopathy. No bowel obstruction. No evidence of free air. There is compression fracture of L1 vertebra with ante rior wedging and vertebral plasty. There is 30% wedging. The bony pelvis is intact. The hip joints ar e intact. The sacroiliac joints are intact. IMPRESSION: Evidence of hepatomegaly and diffuse hepatic metastatic disease. There is abdominal ascites which is significantly increased compared to the old exam. No bowel obstruction. There is increased interstiti al infiltrates at the lung bases compared to old exam. Subcutaneous edema around the abdomen increase d compared to old exam.
[2021-12-22] MEDS ORDERED: PIPERACILLIN-TAZOBACTAM 3.375 GM in SODIUM CHLORIDE 0.9% 100 ML IVPB STA (23:46)
[2021-12-22] MEDS ORDERED: AZITHROMYCIN 500 MG in SODIUM CHLORIDE 0.9% 250 ML IVPB STA (23:47)
[2021-12-23] MEDS ORDERED: SODIUM CHLORIDE 0.9% 1,000 ML IV ONE (00:10)
[2021-12-23] MEDS: SODIUM CHLORIDE 0.9% 1,000 ML IV SCH ×4 (01:45→23:43)
[2021-12-23] MEDS ORDERED: LACTULOSE 20 GM/30 ML CUP PO ONE (03:13)
--- NOTE | 2021-12-23 03:17 | P.HPIM ---
History of Present Illness H&P Date: 12/23/21 The patient is a 56-year-old male with a PMH of stage IV esophageal cancer (diagnosed 09/2021) with metastases to the liver, following with Dr Regalado who was brought into the emergency room by his family due to confusion. The history was provided by the patient's brother at the bedside and supplemented by the ED provider. The patient was noted to have worsening confusion since yesterday. He was also reported to be more jaundiced during this time. The patient himself denies any complaints although is only oriented to self and partially to place. He reports mild lower back pain. Denied chest pain, cough, shortness of breath, abdominal pain, nausea, vomiting. The patient has undergone a single treatment of chemotherapy and is scheduled to start the second this week. CT abdomen and pelvis revealed worsening abdominal ascites with interstitial infiltrates at the lung bases. Laboratory values were unremarkable for ammonia 59, AST 1384, ALT 190, total bilirubin 8.0, lactic acid 6.9, BUN 33, creatinine 1.54 (up from 0.6), sodium 132, WBC count 28.8, and INR 1.4. Of note, the patient was previously admitted to the hospital one month ago with similar complaints. Review of systems: Pertinent positives and negatives as discussed in HPI, a complete review of systems was performed and all other systems are negative. Physical examination: General: Ill-appearing jaundiced male, no distress, appears older than stated age, normal weight Derm: no unusual rashes/lesions, warm Head: atraumatic, normocephalic, symmetric Eyes: EOMI, no lid lag, scleral icterus noted, pupils equal round reactive to light ENT: Nose and ears atraumatic Neck: No cervical lymphadenopathy, trachea midline, supple Mouth: no lip lesion, mucus membranes dry Cardiovascular: S1S2 reg, no murmur, positive dorsalis pedis pulse bilateral, 2+ lower extremity pitting edema bilaterally Lungs: Bibasilar rhonchi, no accessory muscle use Abdominal: Distended, nontender to palpation, no guarding Ext: muscle strength 4 out of 5 in all 4 extremities grossly, no gross muscle atrophy, no contractures, Neuro: CN II-XI grossly intact, no gross focal neuro deficits Psych: Awake, oriented only to person and partially to place Assessment/plan Sepsis suspected secondary to pneumonia -Continue broad-spectrum antibiotics including azithromycin and Zosyn -Gentle IV hydration -Follow up cultures Altered mental status, likely hepatic encephalopathy -Continue with lactulose -Monitor ammonia levels Acute kidney injury -Gentle IV hydration Jaundiced with severe transaminitis -Likely due to worsening hepatic metastasis -Continue to monitor Esophageal stage IV cancer -Oncology consulted Lactic acidosis -Monitor for resolution DVT prophylaxis -Lovenox The patient is admitted with an anticipated greater than 2 midnight stay for evaluation of altered mental status CODE STATUS: Full Code Discussed with: Patient Anticipated discharge date: 12/[address]: Home Past Medical History Past Medical History: Cancer, Hypertension Additional Past Medical History / Comment(s): Recent diagnosis of esophageal cancer with liver metastasis/recieved first chemo treatments on 11/11/21, recent increased weakness/near falls, chronic back pain. History of Any Multi-Drug Resistant Organisms: None Reported Past Surgical History: Back Surgery Additional Past Surgical History / Comment(s): COLONOSCOPies/EGDs, 11/01/21 port placed, kyphoplasty Past Anesthesia/Blood Transfusion Reactions: No Reported Reaction Past Psychological History: Anxiety, Depression Smoking Status: Former smoker Past Alcohol Use History: None Reported Past Drug Use History: None Reported - Past Family History Mother Family Medical History: Dementia Father Family Medical History: Cancer Additional Family Medical History / Comment(s): Skin cancer Medications and Allergies Home Medications Medication Instructions Recorded Confirmed Type fentaNYL 12MCG/HR PATCH [Duragesic 1 patch TRANSDERM Q72H 11/01/21 11/18/21 History 12MCG/HR] Lidocaine-Prilocaine Cream [Emla 1 applic TOPICAL DAILY PRN 11/18/21 11/18/21 History Cream 2.5%/2.5%] Morphine Sulfate Ir [MSIR] 15 mg PO Q4H PRN 11/18/21 11/18/21 History Ondansetron [Zofran] 4 mg PO Q4H PRN 11/18/21 11/18/21 History Pantoprazole [Protonix] 40 mg PO DAILY 11/18/21 11/18/21 History Pregabalin [Lyrica] 75 mg PO BID PRN 11/18/21 11/18/21 History fentaNYL 25MCG/HR PATCH [Duragesic 1 patch TRANSDERM Q72H 11/18/21 11/18/21 History 25MCG/HR] Sennosides-Docusate Sodium 2 each PO BID #60 tab 11/21/21 Rx [Senokot-S] Allergies Allergy/AdvReac Type Severity Reaction Status Date / Time No Known Allergies Allergy Verified 12/22/21 20:19 Physical Exam Vitals: Vital Signs Temp Pulse Resp BP Pulse Ox 12/23/21 02:00 103 H 24 94/72 97 12/22/21 23:00 99 22 121/95 98 12/22/21 22:00 98 22 110/78 97 12/22/21 21:24 103 H 20 110/78 97 12/22/21 20:19 97.3 F L 116 H 20 136/89 96 Intake and Output 12/22/21 12/22/21 12/23/21 14:59 22:59 06:59 Other: Weight 65.771 kg Results CBC & Chem 7: 12/22/21 21:24 12/22/21 21:24 Labs: Abnormal Lab Results - Last 24 Hours (Table) 12/22/21 12/22/21 12/22/21 Range/Units 21:24 21:24 21:24 WBC 28.8 H (3.8-10.6) k/uL Hgb 12.0 L D (13.0-17.5) gm/dL MCHC 29.0 L (31.0-37.0) g/dL RDW 19.2 H (11.5-15.5) % Neutrophils # 25.4 H (1.3-7.7) k/uL Monocytes # 1.4 H (0-1.0) k/uL PT 14.4 H (9.0-12.0) sec INR 1.4 H (<1.2) Sodium 132 L (137-145) mmol/L Chloride 91 L (98-107) mmol/L Carbon Dioxide 21 L (22-30) mmol/L BUN 33 H (9-20) mg/dL Creatinine 1.34 H (0.66-1.25) mg/dL Plasma Lactic Acid True (0.7-2.0) mmol/L Total Bilirubin 8.0 H (0.2-1.3) mg/dL AST 1384 H (17-59) U/L ALT 190 H (4-49) U/L Alkaline Phosphatase 914 H (38-126) U/L Ammonia (<30) umol/L Albumin 3.2 L (3.5-5.0) g/dL 12/22/21 12/22/21 12/23/21 Range/Units 21:24 23:04 02:02 WBC (3.8-10.6) k/uL Hgb (13.0-17.5) gm/dL MCHC (31.0-37.0) g/dL RDW (11.5-15.5) % Neutrophils # (1.3-7.7) k/uL Monocytes # (0-1.0) k/uL PT (9.0-12.0) sec INR (<1.2) Sodium (137-145) mmol/L Chloride (98-107) mmol/L Carbon Dioxide (22-30) mmol/L BUN (9-20) mg/dL Creatinine (0.66-1.25) mg/dL Plasma Lactic Acid True 6.9 H* 3.2 H* (0.7-2.0) mmol/L Total Bilirubin (0.2-1.3) mg/dL AST (17-59) U/L ALT (4-49) U/L Alkaline Phosphatase (38-126) U/L Ammonia 59 H (<30) umol/L Albumin (3.5-5.0) g/dL
[2021-12-23] MEDS: PIPERACILLIN-TAZOBACTAM 3.375 GM in SODIUM CHLORIDE 0.9% 100 ML IVPB SCH ×3 (07:59→23:45)
[2021-12-23] MEDS: LACTULOSE 20 GM/30 ML CUP PO SCH ×3 (07:59→20:56)
[2021-12-23] MEDS: ENOXAPARIN 40 MG/0.4 ML SYRINGE SQ SCH (08:00)
[2021-12-23] MEDS ORDERED: PREGABALIN 75 MG CAP PO PRN (10:00)
[2021-12-23 10:42] LABS: Appearance,Urine Clear (Clear); Bacteria,Urine Rare /hpf; Bilirubin,Urine 2+ (Negative); Blood,Urine Negative (Negative); Color,Urine Dark Yellow; Glucose,Urine (UA) Negative (Negative); Hyaline Casts,Urine 5 /lpf (0-2); Ketones,Urine 1+ (Negative); Leukocyte Esterase,Urine Negative (Negative); Mucus,Urine Rare /hpf; Nitrite,Urine Negative (Negative); PH, Urine 5.5 (5.0-8.0); Protein,Urine 1+ (Negative); RBC,Urine 3 /hpf (0-5); Squamous Epithelial Cell,Urine <1 /hpf (0-4); Urobilinogen,Urine <2.0 mg/dL (<2.0); WBC,Urine 7 /hpf (0-5)
[2021-12-23 10:56] LABS: Amphetamine Screen,Urine Not Detected (NotDetected); Barbiturate Screen,Urine Not Detected (NotDetected); Benzodiazepines Screen,Urine Not Detected (NotDetected); Cocaine Screen,Urine Not Detected (NotDetected); Methadone Screen, Urine Not Detected (NotDetected); Opiate Screen,Urine Detected (NotDetected); Oxycodone Screen, Urine Not Detected (NotDetected); Phencyclidine Screen,Urine Not Detected (NotDetected); Tricyclic Antidepressant,Urine Not Detected (NotDetected); Urn Cannabinoid Scrn Detected (NotDetected)
[2021-12-23] MEDS: AZITHROMYCIN 250 MG TAB PO SCH (12:19)
--- NOTE | 2021-12-23 15:48 | US ---
EXAMINATION TYPE: US abdomen limited DATE OF EXAM: 12/23/2021 COMPARISON: CT abdomen pelvis 12/22/2021 CLINICAL HISTORY: assess for fluid pocket please. All four quadrants scanned. Small volume ascites in all 4 quadrants with largest pocket in the left u pper quadrant. IMPRESSION: Small volume ascites.
[2021-12-23] MEDS: SENNOSIDES-DOCUSATE SODIUM 1 EACH TAB PO SCH (20:55)
[2021-12-23] MEDS: MORPHINE SULFATE IR 15 MG TABLET PO PRN (21:42)
--- NOTE | 2021-12-23 23:54 | P.CONS ---
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 Abarca is a pleasant 56-year-old male patient seen initially in consult 09/22/21 due to abnormal findings on CT AP. He presented with abdominal pain/epigastric pain, constipation, nausea and vomiting x 2 weeks, subsequent loss of appetite, persistent, will feel pain radiating into the right axilla at times. Nothing was relieving the symptoms completely, supportive care helping. Patient denied fevers, chills, sweats, difficulty swallowing, painful swallowing, not sure how much weight he has lost, he has had an EGD and colonoscopy about 15-18 years ago. He has a history of a broken xiphoid, he quit smoking 12 years ago, no personal history of cancer. He had an EGD and colonoscopy with Dr. Hilton 09/24/21. GE junction biopsy showed poorly differentiated invasive carcinoma with ulceration. Sigmoid colon polyp was a tubular adenoma. HER-2/aaron by fish was negative, NGS returned negative for actionable mutations. He had an MRI of the lumbar spine 09/25 which was negative for metastases. Saging PET scan 10/11 IMPRESSION: Distal esophageal neoplasm has more prominent gastric component/extension. Adjacent abnormal adenopathy in the upper abdomen, diffuse hepatic metastatic disease, abnormal retroperitoneal lymph nodes in the upper to mid abdomen, bilateral supraclavicular adenopathy and less prominent anterior superior mediastinal lymph node also noted. He started FOLFOX 8/. He is status post 3 cycles, due for cycle #4. He was admitted to the hospital after cycle #1 because of persistent weakness, and some episodic confusion. Liver enzymes had increased after chemotherapy, US showed no evidence of obstruction. This was therefore felt to be due to posttreatment inflammation. Pt is admitted now after cycle 3 with hepatic encephalopathy, confusion and jaundice. Pt is confused when seen. He cont to take pain meds, denies unbearable pain at this time. Bilirubin elevated, as are liver enzymes, ammonia was 59 on admit, lactic acid elevated, pt on abx. Review of Systems ROS unobtainable: due to mental status Past Medical History Past Medical History: Cancer, Hypertension Additional Past Medical History / Comment(s): Pt admitted to [facility] on 11/18/21 with jaundice, bilateral lower extremity edema, weakness fatigue, transaminitis, protein calorie malnutrition. Other hx: Pt has a recent diagnosis of esophageal cancer with liver metastasis/recieved first chemo treatments on 11/11/21, recent increased weakness/near falls, chronic back pain. History of Any Multi-Drug Resistant Organisms: None Reported Past Surgical History: Back Surgery Additional Past Surgical History / Comment(s): COLONOSCOPies/EGDs, 11/01/21 port placed, kyphoplasty Past Anesthesia/Blood Transfusion Reactions: No Reported Reaction Smoking Status: Former smoker - Past Family History Mother Family Medical History: Dementia Father Family Medical History: Cancer Additional Family Medical History / Comment(s): Skin cancer Medications and Allergies Home Medications Medication Instructions Recorded Confirmed Type fentaNYL 12MCG/HR PATCH [Duragesic 1 patch TRANSDERM Q72H 11/01/21 12/23/21 History 12MCG/HR] Lidocaine-Prilocaine Cream [Emla 1 applic TOPICAL DAILY PRN 11/18/21 12/23/21 History Cream 2.5%/2.5%] Morphine Sulfate Ir [MSIR] 15 mg PO Q4H PRN 11/18/21 12/23/21 History Ondansetron [Zofran] 4 mg PO Q4H PRN 11/18/21 12/23/21 History Pantoprazole [Protonix] 40 mg PO DAILY 11/18/21 12/23/21 History Pregabalin [Lyrica] 75 mg PO BID PRN 11/18/21 12/23/21 History fentaNYL 25MCG/HR PATCH [Duragesic 1 patch TRANSDERM Q72H 11/18/21 12/23/21 History 25MCG/HR] Sennosides-Docusate Sodium 2 tab PO BID 12/23/21 12/23/21 History [Senokot-S] Allergies Allergy/AdvReac Type Severity Reaction Status Date / Time No Known Allergies Allergy Verified 12/23/21 06:55 Physical Exam Vitals: Vital Signs Temp Pulse Resp BP Pulse Ox 12/23/21 11:06 98 14 117/91 96 12/23/21 08:07 93 18 123/86 100 12/23/21 07:00 54 L 20 111/61 98 12/23/21 06:00 87 20 97 12/23/21 05:00 95 20 98/71 97 12/23/21 04:00 84 20 105/77 97 12/23/21 03:00 92 22 101/86 97 12/23/21 02:00 103 H 24 94/72 97 12/22/21 23:00 99 22 121/95 98 12/22/21 22:00 98 22 110/78 97 12/22/21 21:24 103 H 20 110/78 97 12/22/21 20:19 97.3 F L 116 H 20 136/89 96 Intake and Output 12/22/21 12/23/21 12/23/21 22:59 06:59 14:59 Other: Weight 65.771 kg 65.771 kg - Constitutional frail looking, progressive General appearance: cooperative, no acute distress, thin - EENT dry mouth Eyes: EOMI, scleral icterus ENT: hearing grossly normal - Neck Neck: no lymphadenopathy - Respiratory Respiratory: bilateral: CTA - Cardiovascular Rhythm: regular Heart sounds: normal: S1, S2 Abnormal Heart Sounds: no systolic murmur, no diastolic murmur, no rub, no S3 Gallop, no S4 Gallop, no click, no other leg Peripheral Edema: bilateral: 2+ - Gastrointestinal General gastrointestinal: no absent bowel sounds, no decreased bowel sounds, distended, hepatomegaly, no hyperactive bowel sounds, normal bowel sounds, no organomegaly, no rigid, no scaphoid, soft, no splenomegaly, no tenderness, no umbilical hernia, no ventral hernia - Integumentary Integumentary: jaundiced - Neurologic Neurologic: CNII-XII intact (grossly) - Musculoskeletal muscle wasting Musculoskeletal: generalized weakness - Psychiatric lethargic, confused Results CBC & Chem 7: 12/22/21 21:24 12/22/21 21:24 Labs: Abnormal Lab Results - Last 24 Hours (Table) 12/22/21 12/22/21 12/22/21 Range/Units 10:26 21:24 21:24 WBC 28.8 H (3.8-10.6) k/uL Hgb 12.0 L D (13.0-17.5) gm/dL MCHC 29.0 L (31.0-37.0) g/dL RDW 19.2 H (11.5-15.5) % Neutrophils # 25.4 H (1.3-7.7) k/uL Monocytes # 1.4 H (0-1.0) k/uL PT 14.4 H (9.0-12.0) sec INR 1.4 H (<1.2) Sodium (137-145) mmol/L Chloride (98-107) mmol/L Carbon Dioxide (22-30) mmol/L BUN (9-20) mg/dL Creatinine (0.66-1.25) mg/dL Plasma Lactic Acid True (0.7-2.0) mmol/L Total Bilirubin (0.2-1.3) mg/dL AST (17-59) U/L ALT (4-49) U/L Alkaline Phosphatase (38-126) U/L Ammonia (<30) umol/L Albumin (3.5-5.0) g/dL Ur Specific Mcdavid 1.050 H (1.001-1.035) Urine Protein 1+ H (Negative) Urine Ketones 1+ H (Negative) Urine Bilirubin 2+ H (Negative) Urine WBC 7 H (0-5) /hpf Urine Bacteria Rare H (None) /hpf Hyaline Casts 5 H (0-2) /lpf Urine Mucus Rare H (None) /hpf Urine Opiates Screen Detected H (NotDetected) U Marijuana (THC) Screen Detected H (NotDetected) 12/22/21 12/22/21 12/22/21 Range/Units 21:24 21:24 23:04 WBC (3.8-10.6) k/uL Hgb (13.0-17.5) gm/dL MCHC (31.0-37.0) g/dL RDW (11.5-15.5) % Neutrophils # (1.3-7.7) k/uL Monocytes # (0-1.0) k/uL PT (9.0-12.0) sec INR (<1.2) Sodium 132 L (137-145) mmol/L Chloride 91 L (98-107) mmol/L Carbon Dioxide 21 L (22-30) mmol/L BUN 33 H (9-20) mg/dL Creatinine 1.34 H (0.66-1.25) mg/dL Plasma Lactic Acid True 6.9 H* (0.7-2.0) mmol/L Total Bilirubin 8.0 H (0.2-1.3) mg/dL AST 1384 H (17-59) U/L ALT 190 H (4-49) U/L Alkaline Phosphatase 914 H (38-126) U/L Ammonia 59 H (<30) umol/L Albumin 3.2 L (3.5-5.0) g/dL Ur Specific Mcdavid (1.001-1.035) Urine Protein (Negative) Urine Ketones (Negative) Urine Bilirubin (Negative) Urine WBC (0-5) /hpf Urine Bacteria (None) /hpf Hyaline Casts (0-2) /lpf Urine Mucus (None) /hpf Urine Opiates Screen (NotDetected) U Marijuana (THC) Screen (NotDetected) 12/23/21 12/23/21 12/23/21 Range/Units 02:02 06:15 09:28 WBC (3.8-10.6) k/uL Hgb (13.0-17.5) gm/dL MCHC (31.0-37.0) g/dL RDW (11.5-15.5) % Neutrophils # (1.3-7.7) k/uL Monocytes # (0-1.0) k/uL PT (9.0-12.0) sec INR (<1.2) Sodium (137-145) mmol/L Chloride (98-107) mmol/L Carbon Dioxide (22-30) mmol/L BUN (9-20) mg/dL Creatinine (0.66-1.25) mg/dL Plasma Lactic Acid True 3.2 H* 3.0 H* 3.2 H* (0.7-2.0) mmol/L Total Bilirubin (0.2-1.3) mg/dL AST (17-59) U/L ALT (4-49) U/L Alkaline Phosphatase (38-126) U/L Ammonia (<30) umol/L Albumin (3.5-5.0) g/dL Ur Specific Mcdavid (1.001-1.035) Urine Protein (Negative) Urine Ketones (Negative) Urine Bilirubin (Negative) Urine WBC (0-5) /hpf Urine Bacteria (None) /hpf Hyaline Casts (0-2) /lpf Urine Mucus (None) /hpf Urine Opiates Screen (NotDetected) U Marijuana (THC) Screen (NotDetected) Chest x-ray: report reviewed CT scan - abdomen: report reviewed CT Scan - head: report reviewed CT scan - pelvis: report reviewed Assessment and Plan (1) Hepatic encephalopathy Current Visit: Yes Status: Acute Priority: High Code(s): K72.90 - HEPATIC FAILURE, UNSPECIFIED WITHOUT COMA SNOMED Code(s): 66606364 (2) Altered mental status Current Visit: Yes Status: Acute Priority: High Code(s): R41.82 - ALTERED MENTAL STATUS, UNSPECIFIED SNOMED Code(s): 490947938 (3) Elevated LFTs Current Visit: Yes Status: Acute Priority: High Code(s): R79.89 - OTHER SPECIFIED ABNORMAL FINDINGS OF BLOOD CHEMISTRY SNOMED Code(s): 519850544 (4) Metastatic cancer Current Visit: Yes Status: Acute Priority: High Code(s): C79.9 - SECONDARY MALIGNANT NEOPLASM OF UNSPECIFIED SITE SNOMED Code(s): 770157822 (5) Esophageal adenocarcinoma Current Visit: Yes Status: Acute Priority: High Code(s): C15.9 - MALIGNANT NEOPLASM OF ESOPHAGUS, UNSPECIFIED SNOMED Code(s): 097535366 Plan: For hepatic encephalopathy and elevated ammonia, pt is being hydrated, he has received lactulose. CT brain without contrast was neg for mets. Abd distension ad discomfort. We will order US to assess ascites and see if paracentesis would provide any relief. CT AP reviewed. Pt has had 3 cycles of chemo, this is 2nd admit for complications related to liver dysfunction, felt initially to be because of chemo effect on disease burden in liver. Not certain if chemo is having a positive effect on disease. Chemo was due this week. Case will be discussed with Primary Oncologist to see what discussions have been had about treatment options. Elevated lactic acid. Pt is on antibiotics. Agree with plan, cont for now. Will f/u and update the plan of care attests: I have seen and examined patient, performed H&P, developed impressi on and plan of care. Discussed with dictator. Agree with dictation, documented as a scribe
[2021-12-24] MEDS: MORPHINE SULFATE IR 15 MG TABLET PO PRN ×4 (01:55→20:36)
[2021-12-24] MEDS: PIPERACILLIN-TAZOBACTAM 3.375 GM in SODIUM CHLORIDE 0.9% 100 ML IVPB SCH ×2 (08:00→16:18)
[2021-12-24] MEDS: PANTOPRAZOLE 40 MG TABLET PO SCH (08:00)
[2021-12-24] MEDS: LACTULOSE 20 GM/30 ML CUP PO SCH ×3 (08:00→22:20)
[2021-12-24] MEDS: SENNOSIDES-DOCUSATE SODIUM 1 EACH TAB PO SCH ×2 (08:00→22:19)
[2021-12-24] MEDS: ENOXAPARIN 40 MG/0.4 ML SYRINGE SQ SCH (08:01)
[2021-12-24] MEDS: AZITHROMYCIN 250 MG TAB PO SCH (08:49)
[2021-12-24] MEDS: ONDANSETRON 4 MG TAB PO PRN ×2 (08:49→12:45)
[2021-12-24] MEDS: SODIUM CHLORIDE 0.9% 1,000 ML IV SCH (08:50)
[2021-12-24 10:35] LABS: Basophils # (A) 0.09 X 10*3/uL (0.00-0.10); Basophils % (A) 0.6 %; Eosinophils # (A) 0.53 X 10*3/uL (0.04-0.35); Eosinophils % (A) 3.6 %; HCT 32.5 % (39.6-50.0); HGB 9.9 g/dL (13.0-17.0); Immature Grans, Automated 2.1 %; Lymphocytes # (A) 1.24 X 10*3/uL (0.90-5.00); Lymphocytes % (A) 8.4 %; MCH 28.2 pg (27.0-32.0); MCHC 30.5 g/dL (32.0-37.0); MCV 92.6 fL (80.0-97.0); Mean Platelet Volume 10.9 fL (9.5-12.2); Monocytes # (A) 1.25 X 10*3/uL (0.20-1.00); Monocytes % (A) 8.4 %; NRBC Per 100 WBC 0 /100 WBCS (0.0-0.0); Neutrophils # (A) 11.41 X 10*3/uL (1.80-7.70); Neutrophils % (A) 76.9 %; Platelet Count 257 X 10*3/uL (140-440); RBC 3.51 X 10*6/uL (4.40-5.60); RDW 20.7 % (11.5-14.5); WBC 14.83 X 10*3/uL (4.50-10.00)
--- NOTE | 2021-12-24 10:56 | US ---
Ultrasound-guided paracentesis. DATE OF EXAM: 12/24/2021 CLINICAL HISTORY: Ascites The procedure was discussed with the patient. The risks, complications, benefits, and alternatives we re discussed and any questions were answered. Informed consent was obtained. The patient was placed s upine on the ultrasound table and prepped and draped in the usual sterile fashion. All elements of maximal barrier technique were utilized. Under ultrasound guidance, access into the right lower quadrant was obtained, via the paracentesis catheter system and direct ultrasound guidanc e. Approximately 1.7 liters of straw-colored fluid was removed. The patient was stable throughout the pr ocedure and remained stable upon discharge from Department of Radiology. IMPRESSION: Successful paracentesis under ultrasound guidance.
[2021-12-24 10:58] LABS: Magnesium 2.3 mg/dL (1.5-2.4)
[2021-12-24 11:14] LABS: African American GFR (CKD) 114.1 (60.0-200.0); Albumin 2.2 g/dL (3.8-4.9); Albumin/Globulin Ratio 0.85 (1.60-3.17); Anion Gap 12.1 mmol/L (10.00-18.00); BUN/Creat Ratio 24.88 Ratio (12.00-20.00); Blood Urea Nitrogen 19.9 mg/dL (9.0-27.0); Calcium 8.4 mg/dL (8.7-10.3); Carbon Dioxide 23.9 mmol/L (20.0-27.5); Globulin 2.6 g/dL (1.6-3.3); Non-African American GFR(CKD) 98.5 (60.0-200.0); Total Bilirubin 5.6 mg/dL (0.30-1.20); Total Protein 4.8 g/dL (6.2-8.2)
[2021-12-24 11:59] LABS: Glucose,Whole Blood 57 mg/dL (70-110)
[2021-12-24 12:14] LABS: Glucose,Whole Blood 74 mg/dL (70-110)
[2021-12-24] MEDS: DEXTROSE 5%-0.9% NACL 1,000 ML IV SCH (12:40)
[2021-12-24 13:47] VITALS: BMI 22.7
--- NOTE | 2021-12-24 14:52 | P.PN ---
Subjective Progress Note Date: 12/24/21 Patient was seen and examined. No acute events overnight. He reports no complaints today. Multiple family members at bedside. Family would like to discuss with oncology regarding continuation of chemotherapy versus hospice. Family requesting if able to administer IVF at home due to dehydration. General: non toxic, no distress, appears at stated age, ill-appearing and jaundiced Derm: warm, dry Head: atraumatic, normocephalic, symmetric Eyes: EOMI, no lid lag, icteric sclera Mouth: no lip lesion, mucus membranes moist Cardiovascular: S1S2 reg, no murmur, 2+ pitting edema lower extremity bilateral ly Lungs: Decreased breath sounds bilaterally, no accessory muscle use Abdominal: Distended, nontender to palpation Ext: no gross muscle atrophy, no edema, no contractures Neuro: no focal neuro deficits Psych: Alert, oriented, flat affect Sepsis suspected secondary to pneumonia versus SBP -Continue broad-spectrum antibiotics including azithromycin and Zosyn -CT AP shows increased interstitial infiltrates at the lung bases -Gentle IV hydration -Follow up blood cultures -Paracentesis performed, perform fluid analysis and culture Altered mental status, likely hepatic encephalopathy -Continue with lactulose -Monitor ammonia levels Hypoglycemia -Switch IVF to D5 normal saline Normocytic anemia -Likely related to underlying malignancy with dilution -No active signs of bleeding -Continue to monitor Jaundiced with severe transaminitis -Likely due to worsening hepatic metastasis -Continue to monitor Esophageal stage IV cancer -Oncology consulted Lactic acidosis -Monitor for resolution DVT prophylaxis -Lovenox Resolved: Acute kidney injury The patient is admitted with an anticipated greater than 2 midnight stay for evaluation of altered mental status CODE STATUS: Full Code Discussed with: Patient, nursing, family at bedside Objective - Vital Signs Vital signs: Vital Signs Temp 98.2 F 12/24/21 10:46 Pulse 84 12/24/21 11:44 Resp 18 12/24/21 11:44 BP 103/69 12/24/21 11:44 Pulse Ox 92 L 12/24/21 11:44 FiO2 Intake & Output 12/23/21 12/24/21 12/24/21 18:59 06:59 18:59 Intake Total 2350 Balance 2350 Weight 65.771 kg 65.771 kg Intake: Intake, IV Titration 1600 Amount Piperacillin-Tazobactam 3 100 .375 gm In Sodium Chloride 0.9% 100 ml @ 25 mls/hr IVPB Q8HR [facility] Rx# :[id number] Sodium Chloride 0.9% 1, 1500 000 ml @ 125 mls/hr IV . Q8H [facility] Rx#:[id number] Oral 750 Other: # Voids 1 # Bowel Movements 1 - Labs CBC & Chem 7: 12/24/21 06:26 12/24/21 06:26 Labs: Abnormal Lab Results - Last 24 Hours (Table) 12/23/21 12/23/21 12/23/21 Range/Units 14:51 18:45 22:05 WBC (4.50-10.00) X 10*3/uL RBC (4.40-5.60) X 10*6/uL Hgb (13.0-17.0) g/dL Hct (39.6-50.0) % MCHC (32.0-37.0) g/dL RDW (11.5-14.5) % Immature Gran # (0.00-0.04) X 10*3/uL Neutrophils # (1.80-7.70) X 10*3/uL Monocytes # (0.20-1.00) X 10*3/uL Eosinophils # (0.04-0.35) X 10*3/uL Sodium (135-145) mmol/L BUN/Creatinine Ratio (12.00-20.00) Ratio Glucose (70-110) mg/dL POC Glucose (mg/dL) (70-110) mg/dL Plasma Lactic Acid True 2.6 H* 2.4 H* 2.5 H* (0.7-2.0) mmol/L Calcium (8.7-10.3) mg/dL Total Bilirubin (0.30-1.20) mg/dL AST (14-35) U/L ALT (10-49) U/L Alkaline Phosphatase (41-126) U/L Total Protein (6.2-8.2) g/dL Albumin (3.8-4.9) g/dL Albumin/Globulin Ratio (1.60-3.17) g/dL 12/24/21 12/24/21 12/24/21 Range/Units 06:26 06:26 11:54 WBC 14.83 H (4.50-10.00) X 10*3/uL RBC 3.51 L (4.40-5.60) X 10*6/uL Hgb 9.9 L (13.0-17.0) g/dL Hct 32.5 L (39.6-50.0) % MCHC 30.5 L (32.0-37.0) g/dL RDW 20.7 H (11.5-14.5) % Immature Gran # 0.31 H (0.00-0.04) X 10*3/uL Neutrophils # 11.41 H (1.80-7.70) X 10*3/uL Monocytes # 1.25 H (0.20-1.00) X 10*3/uL Eosinophils # 0.53 H (0.04-0.35) X 10*3/uL Sodium 134 L (135-145) mmol/L BUN/Creatinine Ratio 24.88 H (12.00-20.00) Ratio Glucose 49 L* (70-110) mg/dL POC Glucose (mg/dL) 57 L (70-110) mg/dL Plasma Lactic Acid True (0.7-2.0) mmol/L Calcium 8.4 L (8.7-10.3) mg/dL Total Bilirubin 5.60 H (0.30-1.20) mg/dL AST 845 H (14-35) U/L ALT 170 H (10-49) U/L Alkaline Phosphatase 634 H (41-126) U/L Total Protein 4.8 L (6.2-8.2) g/dL Albumin 2.2 L (3.8-4.9) g/dL Albumin/Globulin Ratio 0.85 L (1.60-3.17) g/dL Microbiology - Last 24 Hours (Table) 12/22/21 23:30 Blood Culture - Preliminary Blood No Growth after 24 hours 12/22/21 23:20 Blood Culture - Preliminary Blood No Growth after 24 hours
[2021-12-24 15:28] LABS: Glucose,Whole Blood 137 mg/dL (70-110)
[2021-12-24 16:11] LABS: Appearance,BF Clear
[2021-12-24 17:15] LABS: Glucose,Whole Blood 162 mg/dL (70-110)
--- NOTE | 2021-12-24 17:42 | P.PN ---
Subjective Progress Note Date: 12/24/21 Principal diagnosis: hepatic encephalopathy In follow-up today patient is more awake, he continues to not be able to answer questions quite appropriately, does report pain control at this time. Objective - Vital Signs Vital signs: Vital Signs Temp 98.2 F 12/24/21 10:46 Pulse 84 12/24/21 11:44 Resp 18 12/24/21 11:44 BP 103/69 12/24/21 11:44 Pulse Ox 92 L 12/24/21 11:44 FiO2 Intake & Output 12/23/21 12/24/21 12/24/21 18:59 06:59 18:59 Intake Total 2350 Balance 2350 Weight 65.771 kg 65.771 kg Intake: Intake, IV Titration 1600 Amount Piperacillin-Tazobactam 3 100 .375 gm In Sodium Chloride 0.9% 100 ml @ 25 mls/hr IVPB Q8HR [facility] Rx# :[id number] Sodium Chloride 0.9% 1, 1500 000 ml @ 125 mls/hr IV . Q8H [facility] Rx#:[id number] Oral 750 Other: # Voids 1 # Bowel Movements 1 - Constitutional General appearance: Present: cooperative, no acute distress, thin - EENT Eyes: Present: EOMI, scleral icterus ENT: Present: hearing grossly normal - Respiratory Respiratory: bilateral: CTA - Cardiovascular Rhythm: regular Heart sounds: normal: S1, S2 Abnormal Heart Sounds: Absent: systolic murmur, diastolic murmur, rub, S3 Gallop, S4 Gallop, click, other - Peripheral edema leg Peripheral Edema: bilateral: Trace - Gastrointestinal General gastrointestinal: Present: distended, soft, tenderness (improved from yesterday) - Integumentary Integumentary: Present: jaundiced - Musculoskeletal Musculoskeletal: Present: generalized weakness - Psychiatric Psychiatric Comment(s): patient is calm, he is more alert to his surroundings today, not yet answering questions completely appropriately yet. - Labs CBC & Chem 7: 12/24/21 06:26 12/24/21 06:26 Labs: Abnormal Lab Results - Last 24 Hours (Table) 12/23/21 12/23/21 12/24/21 Range/Units 18:45 22:05 06:26 WBC (4.50-10.00) X 10*3/uL RBC (4.40-5.60) X 10*6/uL Hgb (13.0-17.0) g/dL Hct (39.6-50.0) % MCHC (32.0-37.0) g/dL RDW (11.5-14.5) % Immature Gran # (0.00-0.04) X 10*3/uL Neutrophils # (1.80-7.70) X 10*3/uL Monocytes # (0.20-1.00) X 10*3/uL Eosinophils # (0.04-0.35) X 10*3/uL Sodium 134 L (135-145) mmol/L BUN/Creatinine Ratio 24.88 H (12.00-20.00) Ratio Glucose 49 L* (70-110) mg/dL POC Glucose (mg/dL) (70-110) mg/dL Plasma Lactic Acid True 2.4 H* 2.5 H* (0.7-2.0) mmol/L Calcium 8.4 L (8.7-10.3) mg/dL Total Bilirubin 5.60 H (0.30-1.20) mg/dL AST 845 H (14-35) U/L ALT 170 H (10-49) U/L Alkaline Phosphatase 634 H (41-126) U/L Total Protein 4.8 L (6.2-8.2) g/dL Albumin 2.2 L (3.8-4.9) g/dL Albumin/Globulin Ratio 0.85 L (1.60-3.17) g/dL 12/24/21 12/24/21 12/24/21 Range/Units 06:26 11:54 15:15 WBC 14.83 H (4.50-10.00) X 10*3/uL RBC 3.51 L (4.40-5.60) X 10*6/uL Hgb 9.9 L (13.0-17.0) g/dL Hct 32.5 L (39.6-50.0) % MCHC 30.5 L (32.0-37.0) g/dL RDW 20.7 H (11.5-14.5) % Immature Gran # 0.31 H (0.00-0.04) X 10*3/uL Neutrophils # 11.41 H (1.80-7.70) X 10*3/uL Monocytes # 1.25 H (0.20-1.00) X 10*3/uL Eosinophils # 0.53 H (0.04-0.35) X 10*3/uL Sodium (135-145) mmol/L BUN/Creatinine Ratio (12.00-20.00) Ratio Glucose (70-110) mg/dL POC Glucose (mg/dL) 57 L 137 H (70-110) mg/dL Plasma Lactic Acid True (0.7-2.0) mmol/L Calcium (8.7-10.3) mg/dL Total Bilirubin (0.30-1.20) mg/dL AST (14-35) U/L ALT (10-49) U/L Alkaline Phosphatase (41-126) U/L Total Protein (6.2-8.2) g/dL Albumin (3.8-4.9) g/dL Albumin/Globulin Ratio (1.60-3.17) g/dL Microbiology - Last 24 Hours (Table) 12/22/21 23:30 Blood Culture - Preliminary Blood No Growth after 24 hours 12/22/21 23:20 Blood Culture - Preliminary Blood No Growth after 24 hours - Imaging and Cardiology US - abdomen: report reviewed Assessment and Plan (1) Hepatic encephalopathy Current Visit: Yes Status: Acute Priority: High Code(s): K72.90 - HEPATIC FAILURE, UNSPECIFIED WITHOUT COMA SNOMED Code(s): 89813830 (2) Altered mental status Current Visit: Yes Status: Acute Priority: High Code(s): R41.82 - ALTERED MENTAL STATUS, UNSPECIFIED SNOMED Code(s): 811917028 (3) Elevated LFTs Current Visit: Yes Status: Acute Priority: High Code(s): R79.89 - OTHER SPECIFIED ABNORMAL FINDINGS OF BLOOD CHEMISTRY SNOMED Code(s): 022738006 (4) Metastatic cancer Current Visit: Yes Status: Acute Priority: High Code(s): C79.9 - SECONDARY MALIGNANT NEOPLASM OF UNSPECIFIED SITE SNOMED Code(s): 533956034 (5) Esophageal adenocarcinoma Current Visit: Yes Status: Acute Priority: High Code(s): C15.9 - MALIGNANT NEOPLASM OF ESOPHAGUS, UNSPECIFIED SNOMED Code(s): 063797936 Plan: For hepatic encephalopathy and elevated ammonia, patient has been hydrated, received lactulose. CT brain without contrast was neg for mets. Ammonia level was normal yesterday. Patient's mentation during exam today shows some improvement. Abd distension and discomfort. 1.7L ascitic fluid removed. Patient appears more comfortable. His abdomen is less distended on exam. CT AP reviewed. Pt has had ONLY 2 CYCLES of chemo (CORRECTED FROM YESDTERDAY'S NOTE). This is 2nd admit for complications related to liver dysfunction. 1st admit felt chemo effect on disease burden in liver. This admit, pt was ready for next cycle of chemo when he rapidly worsened. Pt PS is progressively declining, which will affect his ability to tolerate chemotherapy. Family had multiple questions about prognosis with and without treatment, parenteral nutrition and hydration-which is not recommended in cases of metastatic cancer as neither of these modalities provide quality of life and, in fact, can cause pain for patient at the end of life-and hospice and end of life. All of family's questions were answered to their satisfaction. Family would like to see if patient cognition can improve enough so that he can make his own decisions regarding continuing treatment, discontinuing treatment or pursuing treatment with hospice. We will meet with family and patient again tomorrow and update the plan of care. Elevated lactic acid. Pt is on antibiotics. Agree with plan, cont for now. Elevated LFTs, slight improvement today. Slight improvement and patient's alertness and mental status today Dr. waldronests: I have seen and examined patient, performed H&P, developed impression and plan of care. Discussed with dictator. Agree with dictation, documented as a scribe Time with Patient: Greater than 30 (counseling and coordinating care)
[2021-12-24 18:57] LABS: Albumin, Fluid Source Paracentesis Fluid; T. Protein, Body Fluid Source Paracentesis Fluid; Total Protein, Body Fluid 1630 mg/dL
[2021-12-24 20:12] LABS: Glucose,Whole Blood 133 mg/dL (70-110)
[2021-12-25 02:03] LABS: Glucose,Whole Blood 105 mg/dL (70-110)
[2021-12-25] MEDS: DEXTROSE 5%-0.9% NACL 1,000 ML IV SCH ×3 (05:56→12:54)
[2021-12-25 07:04] LABS: Glucose,Whole Blood 106 mg/dL (70-110)
[2021-12-25] MEDS ORDERED: SODIUM CHLORIDE 0.9% 1,000 ML IV ONE ×2 (07:40→12:38)
[2021-12-25] MEDS: SENNOSIDES-DOCUSATE SODIUM 1 EACH TAB PO SCH ×3 (09:25→21:51)
[2021-12-25] MEDS: PIPERACILLIN-TAZOBACTAM 3.375 GM in SODIUM CHLORIDE 0.9% 100 ML IVPB SCH ×4 (09:25→17:29)
[2021-12-25] MEDS: PANTOPRAZOLE 40 MG TABLET PO SCH (09:25)
[2021-12-25] MEDS: LACTULOSE 20 GM/30 ML CUP PO SCH ×2 (09:25→21:51)
[2021-12-25] MEDS: ENOXAPARIN 40 MG/0.4 ML SYRINGE SQ SCH (09:25)
--- NOTE | 2021-12-25 10:11 | P.PN ---
Subjective Progress Note Date: 12/25/21 Patient was seen and examined. No acute events overnight. He reports multiple loose stools from the Lactulose and abdominal cramping. Family member at bedside. He has no other complaints. General: non toxic, no distress, appears at stated age, ill-appearing and jaundiced Derm: warm, dry Head: atraumatic, normocephalic, symmetric Eyes: EOMI, no lid lag, icteric sclera Mouth: no lip lesion, mucus membranes moist Cardiovascular: S1S2 reg, no murmur, 2+ pitting edema lower extremity bilaterally Lungs: Decreased breath sounds bilaterally, no accessory muscle use Abdominal: Distended, nontender to palpation Ext: no gross muscle atrophy, no edema, no contractures Neuro: no focal neuro deficits Psych: Alert, oriented, flat affect Sepsis suspected secondary to pneumonia versus SBP -Continue broad-spectrum antibiotics including azithromycin and Zosyn -CT AP shows increased interstitial infiltrates at the lung bases -Gentle IV hydration -Follow up blood cultures (negative so far) -Paracentesis performed, SAAG 1.3 unlikely to be SBP, culture negative so far Lactic acidosis -Elevated at 6.5 this morning. -Likely related to malignancy, less likely infectious -1L NS bolus -Telemetry monitoring -Continue to trend Altered mental status, likely hepatic encephalopathy -Decreased lactulose to BID dosing -Monitor ammonia levels Hypoglycemia -Continue D5 normal saline Normocytic anemia -Likely related to underlying malignancy with dilution -No active signs of bleeding -Continue to monitor Jaundiced with severe transaminitis -Likely due to worsening hepatic metastasis -Continue to monitor Esophageal stage IV cancer -Oncology consulted DVT prophylaxis -Lovenox Resolved: Acute kidney injury The patient is admitted with an anticipated greater than 2 midnight stay for evaluation of altered mental status CODE STATUS: Full Code Discussed with: Patient, nursing, family at bedside Objective - Vital Signs Vital signs: Vital Signs Temp 98.1 F 12/25/21 05:00 Pulse 91 12/25/21 05:00 Resp 16 12/25/21 05:00 BP 123/78 12/25/21 05:00 Pulse Ox 98 12/25/21 05:00 FiO2 Intake & Output 12/24/21 12/25/21 12/25/21 18:59 06:59 18:59 Weight 65.771 kg Other: Voiding Method Urinal # Voids 1 1 # Bowel Movements 1 1 - Labs CBC & Chem 7: 12/24/21 06:26 12/24/21 06:26 Labs: Abnormal Lab Results - Last 24 Hours (Table) 12/24/21 12/24/21 12/24/21 Range/Units 06:26 06:26 11:54 WBC 14.83 H (4.50-10.00) X 10*3/uL RBC 3.51 L (4.40-5.60) X 10*6/uL Hgb 9.9 L (13.0-17.0) g/dL Hct 32.5 L (39.6-50.0) % MCHC 30.5 L (32.0-37.0) g/dL RDW 20.7 H (11.5-14.5) % Immature Gran # 0.31 H (0.00-0.04) X 10*3/uL Neutrophils # 11.41 H (1.80-7.70) X 10*3/uL Monocytes # 1.25 H (0.20-1.00) X 10*3/uL Eosinophils # 0.53 H (0.04-0.35) X 10*3/uL Sodium 134 L (135-145) mmol/L BUN/Creatinine Ratio 24.88 H (12.00-20.00) Ratio Glucose 49 L* (70-110) mg/dL POC Glucose (mg/dL) 57 L (70-110) mg/dL Plasma Lactic Acid True (0.7-2.0) mmol/L Calcium 8.4 L (8.7-10.3) mg/dL Total Bilirubin 5.60 H (0.30-1.20) mg/dL AST 845 H (14-35) U/L ALT 170 H (10-49) U/L Alkaline Phosphatase 634 H (41-126) U/L Total Protein 4.8 L (6.2-8.2) g/dL Albumin 2.2 L (3.8-4.9) g/dL Albumin/Globulin Ratio 0.85 L (1.60-3.17) g/dL 12/24/21 12/24/21 12/24/21 Range/Units 15:15 17:13 20:10 WBC (4.50-10.00) X 10*3/uL RBC (4.40-5.60) X 10*6/uL Hgb (13.0-17.0) g/dL Hct (39.6-50.0) % MCHC (32.0-37.0) g/dL RDW (11.5-14.5) % Immature Gran # (0.00-0.04) X 10*3/uL Neutrophils # (1.80-7.70) X 10*3/uL Monocytes # (0.20-1.00) X 10*3/uL Eosinophils # (0.04-0.35) X 10*3/uL Sodium (135-145) mmol/L BUN/Creatinine Ratio (12.00-20.00) Ratio Glucose (70-110) mg/dL POC Glucose (mg/dL) 137 H 162 H 133 H (70-110) mg/dL Plasma Lactic Acid True (0.7-2.0) mmol/L Calcium (8.7-10.3) mg/dL Total Bilirubin (0.30-1.20) mg/dL AST (14-35) U/L ALT (10-49) U/L Alkaline Phosphatase (41-126) U/L Total Protein (6.2-8.2) g/dL Albumin (3.8-4.9) g/dL Albumin/Globulin Ratio (1.60-3.17) g/dL 12/25/21 12/25/21 Range/Units 06:25 09:27 WBC (4.50-10.00) X 10*3/uL RBC (4.40-5.60) X 10*6/uL Hgb (13.0-17.0) g/dL Hct (39.6-50.0) % MCHC (32.0-37.0) g/dL RDW (11.5-14.5) % Immature Gran # (0.00-0.04) X 10*3/uL Neutrophils # (1.80-7.70) X 10*3/uL Monocytes # (0.20-1.00) X 10*3/uL Eosinophils # (0.04-0.35) X 10*3/uL Sodium (135-145) mmol/L BUN/Creatinine Ratio (12.00-20.00) Ratio Glucose (70-110) mg/dL POC Glucose (mg/dL) (70-110) mg/dL Plasma Lactic Acid True 6.9 H* 6.5 H* (0.7-2.0) mmol/L Calcium (8.7-10.3) mg/dL Total Bilirubin (0.30-1.20) mg/dL AST (14-35) U/L ALT (10-49) U/L Alkaline Phosphatase (41-126) U/L Total Protein (6.2-8.2) g/dL Albumin (3.8-4.9) g/dL Albumin/Globulin Ratio (1.60-3.17) g/dL Microbiology - Last 24 Hours (Table) 12/24/21 09:44 Gram Stain - Preliminary Paracentesis Fluid Body Fluid Culture - Preliminary 12/22/21 23:30 Blood Culture - Preliminary Blood No Growth after 48 hours 12/22/21 23:20 Blood Culture - Preliminary Blood No Growth after 48 hours 12/24/21 09:44 Anaerobic Culture - Preliminary Paracentesis Fluid
[2021-12-25 10:40] LABS: HCT 35.1 % (39.6-50.0); HGB 10.6 g/dL (13.0-17.0); MCH 27.9 pg (27.0-32.0); MCHC 30.2 g/dL (32.0-37.0); MCV 92.4 fL (80.0-97.0); Mean Platelet Volume 9.4 fL (9.5-12.2); NRBC Per 100 WBC 0 /100 WBCS (0.0-0.0); Platelet Count 231 X 10*3/uL (140-440); RDW 20.7 % (11.5-14.5); WBC 13.18 X 10*3/uL (4.50-10.00)
[2021-12-25 11:21] LABS: Albumin 2.4 g/dL (3.8-4.9); Albumin/Globulin Ratio 0.87 (1.60-3.17); Anion Gap 15.8 mmol/L (10.00-18.00); BUN/Creat Ratio 14.23 Ratio (12.00-20.00); Blood Urea Nitrogen 11.7 mg/dL (9.0-27.0); Calcium 8.6 mg/dL (8.7-10.3); Carbon Dioxide 19.7 mmol/L (20.0-27.5); Globulin 2.8 g/dL (1.6-3.3); Non-African American GFR(CKD) 97.4 (60.0-200.0); Potassium 3.3 mmol/L (3.5-5.5); Total Bilirubin 6.3 mg/dL (0.30-1.20); Total Protein 5.2 g/dL (6.2-8.2)
[2021-12-25 11:28] LABS: Glucose,Whole Blood 98 mg/dL (70-110)
[2021-12-25 13:48] LABS: African American GFR (CKD) 112.9 (60.0-200.0)
[2021-12-25] MEDS: POTASSIUM CHLORIDE 20 MEQ in WATER FOR INJECTION 1 100ML.BAG IVPB SCH ×2 (15:32→17:41)
[2021-12-25] MEDS: MORPHINE SULFATE IR 15 MG TABLET PO PRN (16:48)
[2021-12-25 17:16] LABS: Glucose,Whole Blood 102 mg/dL (70-110)
--- NOTE | 2021-12-25 17:55 | P.PN ---
Subjective Progress Note Date: 12/25/21 Principal diagnosis: hepatic encephalopathy, metastatic eso adenocarcinoma In follow-up today patient is more awake, he is answering questions appropriately. His stomach aches, he is desiring some food other then liquids. Objective - Vital Signs Vital signs: Vital Signs Temp 98.4 F 12/25/21 16:52 Pulse 87 12/25/21 16:52 Resp 14 12/25/21 16:52 BP 114/73 12/25/21 16:52 Pulse Ox 97 12/25/21 16:52 FiO2 Intake & Output 12/24/21 12/25/21 12/25/21 18:59 06:59 18:59 Weight 65.771 kg Other: Voiding Method Urinal # Voids 1 1 # Bowel Movements 1 1 - Exam Thin, frail, jaundiced, alert and oriented to self, place, time and situation. Resp are even and unlabored, no audible adventitious breath sounds, abd is diste nded, tender to palpation in the epigastric area, mild loer extremity swelling. - Labs CBC & Chem 7: 12/25/21 06:25 12/25/21 06:25 Labs: Abnormal Lab Results - Last 24 Hours (Table) 12/24/21 12/25/21 12/25/21 Range/Units 20:10 06:25 06:25 WBC 13.18 H (4.50-10.00) X 10*3/uL RBC 3.80 L (4.40-5.60) X 10*6/uL Hgb 10.6 L (13.0-17.0) g/dL Hct 35.1 L (39.6-50.0) % MCHC 30.2 L (32.0-37.0) g/dL RDW 20.7 H (11.5-14.5) % MPV 9.4 L (9.5-12.2) fL Potassium 3.3 L (3.5-5.5) mmol/L Carbon Dioxide 19.7 L (20.0-27.5) mmol/L POC Glucose (mg/dL) 133 H (70-110) mg/dL Plasma Lactic Acid True (0.7-2.0) mmol/L Calcium 8.6 L (8.7-10.3) mg/dL Total Bilirubin 6.30 H (0.30-1.20) mg/dL AST 700 H (14-35) U/L ALT 176 H (10-49) U/L Alkaline Phosphatase 681 H (41-126) U/L Total Protein 5.2 L (6.2-8.2) g/dL Albumin 2.4 L (3.8-4.9) g/dL Albumin/Globulin Ratio 0.87 L (1.60-3.17) g/dL 12/25/21 12/25/21 12/25/21 Range/Units 06:25 09:27 11:52 WBC (4.50-10.00) X 10*3/uL RBC (4.40-5.60) X 10*6/uL Hgb (13.0-17.0) g/dL Hct (39.6-50.0) % MCHC (32.0-37.0) g/dL RDW (11.5-14.5) % MPV (9.5-12.2) fL Potassium (3.5-5.5) mmol/L Carbon Dioxide (20.0-27.5) mmol/L POC Glucose (mg/dL) (70-110) mg/dL Plasma Lactic Acid True 6.9 H* 6.5 H* 6.2 H* (0.7-2.0) mmol/L Calcium (8.7-10.3) mg/dL Total Bilirubin (0.30-1.20) mg/dL AST (14-35) U/L ALT (10-49) U/L Alkaline Phosphatase (41-126) U/L Total Protein (6.2-8.2) g/dL Albumin (3.8-4.9) g/dL Albumin/Globulin Ratio (1.60-3.17) g/dL 12/25/21 Range/Units 14:45 WBC (4.50-10.00) X 10*3/uL RBC (4.40-5.60) X 10*6/uL Hgb (13.0-17.0) g/dL Hct (39.6-50.0) % MCHC (32.0-37.0) g/dL RDW (11.5-14.5) % MPV (9.5-12.2) fL Potassium (3.5-5.5) mmol/L Carbon Dioxide (20.0-27.5) mmol/L POC Glucose (mg/dL) (70-110) mg/dL Plasma Lactic Acid True 5.9 H* (0.7-2.0) mmol/L Calcium (8.7-10.3) mg/dL Total Bilirubin (0.30-1.20) mg/dL AST (14-35) U/L ALT (10-49) U/L Alkaline Phosphatase (41-126) U/L Total Protein (6.2-8.2) g/dL Albumin (3.8-4.9) g/dL Albumin/Globulin Ratio (1.60-3.17) g/dL Microbiology - Last 24 Hours (Table) 12/24/21 09:44 Gram Stain - Preliminary Paracentesis Fluid Body Fluid Culture - Preliminary 12/22/21 23:30 Blood Culture - Preliminary Blood No Growth after 48 hours 12/22/21 23:20 Blood Culture - Preliminary Blood No Growth after 48 hours 12/24/21 09:44 Anaerobic Culture - Preliminary Paracentesis Fluid Assessment and Plan (1) Hepatic encephalopathy Current Visit: Yes Status: Acute Priority: High Code(s): K72.90 - HEPATIC FAILURE, UNSPECIFIED WITHOUT COMA SNOMED Code(s): 45889910 (2) Altered mental status Current Visit: Yes Status: Acute Priority: High Code(s): R41.82 - ALTERED MENTAL STATUS, UNSPECIFIED SNOMED Code(s): 268404205 (3) Elevated LFTs Current Visit: Yes Status: Acute Priority: High Code(s): R79.89 - OTHER S PECIFIED ABNORMAL FINDINGS OF BLOOD CHEMISTRY SNOMED Code(s): 423890316 (4) Metastatic cancer Current Visit: Yes Status: Acute Priority: High Code(s): C79.9 - SECONDARY MALIGNANT NEOPLASM OF UNSPECIFIED SITE SNOMED Code(s): 012392390 (5) Esophageal adenocarcinoma Current Visit: Yes Status: Acute Priority: High Code(s): C15.9 - MALIGNANT NEOPLASM OF ESOPHAGUS, UNSPECIFIED SNOMED Code(s): 285244342 Plan: For hepatic encephalopathy and elevated ammonia, patient has been hydrated, received lactulose. CT brain without contrast was neg for mets. Ammonia level was normal yesterday. Patient's mentation during exam today shows improvement. He answered questions appropriately and did understand the conversation we were having. He had family at the bedside. Abd distension and discomfort. 1.7L ascitic fluid removed yesterday. Calculat ion of SAG most consistent with portal HTN-would likely explain the splenomegaly as well. Pt was able to ask questions and appeared to understand all the was discussed. We discussed poor PS, poor tolerance to chemo, risk vs benefit of continuing chemo, and that chemo, at this point, would likely cause more harm then good. All questions answered to satisfaction. Plan is for conversation with hospice, they have questions and are thinking they would like pt placement near home. Would like few additional family members present for the discussion. They will let nursing know when they can all be available and meeting can be planned at that time. If there are any other questions or concerns please feel free to contact us. Dr. waldronests: I have seen and examined patient, performed H&P, developed impression and plan of care. Discussed with dictator. Agree with dictation, documented as a scribe Time with Patient: Greater than 30
[2021-12-25 20:18] LABS: Glucose,Whole Blood 87 mg/dL (70-110)
[2021-12-26] MEDS: MORPHINE SULFATE IR 15 MG TABLET PO PRN ×2 (00:05→14:22)
[2021-12-26] MEDS: DEXTROSE 5%-0.9% NACL 1,000 ML IV SCH ×2 (00:51→09:24)
[2021-12-26 02:05] LABS: Glucose,Whole Blood 75 mg/dL (70-110)
[2021-12-26 07:11] LABS: Glucose,Whole Blood 74 mg/dL (70-110)
[2021-12-26] MEDS: ENOXAPARIN 40 MG/0.4 ML SYRINGE SQ SCH (09:21)
[2021-12-26] MEDS: PIPERACILLIN-TAZOBACTAM 3.375 GM in SODIUM CHLORIDE 0.9% 100 ML IVPB SCH ×3 (09:21)
[2021-12-26] MEDS: PANTOPRAZOLE 40 MG TABLET PO SCH (09:22)
[2021-12-26] MEDS: LACTULOSE 20 GM/30 ML CUP PO SCH (09:22)
[2021-12-26] MEDS: SENNOSIDES-DOCUSATE SODIUM 1 EACH TAB PO SCH (09:23)
[2021-12-26 11:00] LABS: HCT 33.3 % (39.6-50.0); HGB 10.2 g/dL (13.0-17.0); MCH 28.2 pg (27.0-32.0); MCHC 30.6 g/dL (32.0-37.0); Mean Platelet Volume 9.9 fL (9.5-12.2); NRBC Per 100 WBC 0 /100 WBCS (0.0-0.0); Platelet Count 206 X 10*3/uL (140-440); RBC 3.62 X 10*6/uL (4.40-5.60); RDW 20.9 % (11.5-14.5); WBC 13.98 X 10*3/uL (4.50-10.00)
[2021-12-26 11:13] LABS: Glucose,Whole Blood 90 mg/dL (70-110)
[2021-12-26 11:13] LABS: African American GFR (CKD) 120.6 (60.0-200.0); Anion Gap 10.4 mmol/L (10.00-18.00); BUN/Creat Ratio 9.71 Ratio (12.00-20.00); Blood Urea Nitrogen 6.8 mg/dL (9.0-27.0); Calcium 8.3 mg/dL (8.7-10.3); Carbon Dioxide 20.6 mmol/L (20.0-27.5); Potassium 3.8 mmol/L (3.5-5.5)
--- NOTE | 2021-12-26 11:25 | P.DS ---
Providers Date of admission: 12/23/21 00:05 Expected date of discharge: 12/26/21 Attending physician: Axel Boles MD Consults: 12/23/21 00:04 Consult Physician Urgent Consulting Provider: Kwaku Regalado Consult Reason/Comments: Metastatic esophageal cancer, hepatic cephalopathy Do you want consulting provider notified?: Yes Primary care physician: Stated None Hospital Course: The patient is a 56-year-old male with a PMH of stage IV esophageal cancer (diagnosed 09/2021) with metastases to the liver, following with Dr Regalado who was brought into the emergency room by his family due to confusion. The history was provided by the patient's brother at the bedside and supplemented by the ED provider. The patient was noted to have worsening confusion since yesterday. He was also reported to be more jaundiced during this time. The patient himself denies any complaints although is only oriented to self and partially to place. He reports mild lower back pain. Denied chest pain, cough, shortness of breath, abdominal pain, nausea, vomiting. The patient has undergone a single treatment of chemotherapy and is scheduled to start the second this week. CT abdomen and pelvis revealed worsening abdominal ascites with interstitial infiltrates at the lung bases. Laboratory values were unremarkable for ammonia 59, AST 1384, ALT 190, total bilirubin 8.0, lactic acid 6.9, BUN 33, creatinine 1.54 (up from 0.6), sodium 132, WBC count 28.8, and INR 1.4. Of note, the patient was previously admitted to the hospital one month ago with similar complaints. Patient was initially admitted for sepsis likely secondary to community core her pneumonia. He was started on Zosyn and azithromycin IV. Blood cultures were negative at 72 hours. He underwent paracentesis to rule out SBP. Given his SAAG score was 1.3, was thought to be related to portal hypertension, unlikely infectious. He did have a lactic acidosis of 6.9 on admission. His lactic acidosis improved slightly to 5.4 at the time of discharge. This is thought to be likely related to his malignancy involving the liver rather than sepsis. His altered mentation was thought to be related to hepatic encephalopathy. His ammonia level was elevated at 59 on admission. He was started on lactulose. Repeat ammonia level was negative. He did have an episode of hypoglycemia during his hospitalization which resolved with D5 normal saline. Hematology oncology was consulted with regard to his stage IV esophageal cancer with metastatic disease to the liver. Palliative and hospice was also consulted. Family was agreeable to pursue hospice in the outpatient setting. Patient was seen and examined on 12/26/2021. He reported no complaints and was happy to be discharged home. He was discharged home with 4 days of Augmentin to complete a total of 7 days. Family was requesting fentanyl patch to be increased to 50 g along with refills of MS Contin and Ativan for anxiety. This was discussed with Suzy Brand [employer] who agreed to the changes in medication. Patient was also discharged on lactulose 20g by mouth twice a day. General: non toxic, no distress, appears at stated age, ill-appearing and jaundiced Derm: warm, dry Head: atraumatic, normocephalic, symmetric Eyes: EOMI, no lid lag, icteric sclera Mouth: no lip lesion, mucus membranes moist Cardiovascular: S1S2 reg, no murmur, 2+ pitting edema lower extremity bilaterally Lungs: Decreased breath sounds bilaterally, no accessory muscle use Abdominal: Distended, nontender to palpation Ext: no gross muscle atrophy, no edema, no contractures Neuro: no focal neuro deficits Psych: Alert, oriented, flat affect Discharge Diagnosis: Sepsis suspected secondary to pneumonia Lactic acidosis Altered mental status, likely hepatic encephalopathy Hypoglycemia Normocytic anemia Jaundiced with severe transaminitis Esophageal stage IV cancer Resolved: Acute kidney injury This complex discharge took 45 minutes to complete. Pertinent Studies: Brain CT CT AP CXR Abd US Procedures: Paracentesis Patient Condition at Discharge: Stable Plan - Discharge Summary Discharge Rx Participant: No New Discharge Prescriptions: New Lactulose [Cephulac] 20 gm PO BID #1800 ml fentaNYL 50MCG/HR PATCH [Duragesic 50MCG/HR] 50 mcg TRANSDERM Q72H 7 Days #7 patch LORazepam [Ativan] 1 mg PO TID PRN 7 Days #21 tab PRN Reason: Anxiety Amoxic-Pot Clav 875-125Mg [Augmentin 875-125] 1 tab PO Q12HR 4 Days #8 tab Continue Pregabalin [Lyrica] 75 mg PO BID PRN PRN Reason: Pain Lidocaine-Prilocaine Cream [Emla Cream 2.5%/2.5%] 1 applic TOPICAL DAILY PRN PRN Reason: port access Sennosides-Docusate Sodium [Senokot-S] 2 tab PO BID Morphine Sulfate Ir [MSIR] 15 mg PO Q4H PRN #42 tab PRN Reason: Breakthrough Pain Pantoprazole [Protonix] 40 mg PO DAILY Ondansetron [Zofran] 4 mg PO Q4H PRN PRN Reason: Nausea Discontinued fentaNYL 12MCG/HR PATCH [Duragesic 12MCG/HR] 1 patch TRANSDERM Q72H fentaNYL 25MCG/HR PATCH [Duragesic 25MCG/HR] 1 patch TRANSDERM Q72H Discharge Medication List Lidocaine-Prilocaine Cream [Emla Cream 2.5%/2.5%] 1 applic TOPICAL DAILY PRN 11/18/21 [History] Ondansetron [Zofran] 4 mg PO Q4H PRN 11/18/21 [History] Pantoprazole [Protonix] 40 mg PO DAILY 11/18/21 [History] Pregabalin [Lyrica] 75 mg PO BID PRN 11/18/21 [History] Sennosides-Docusate Sodium [Senokot-S] 2 tab PO BID 12/23/21 [History] Amoxic-Pot Clav 875-125Mg [Augmentin 875-125] 1 tab PO Q12HR 4 Days #8 tab 12/26/21 [Rx] LORazepam [Ativan] 1 mg PO TID PRN 7 Days #21 tab 12/26/21 [Rx] Lactulose [Cephulac] 20 gm PO BID #1800 ml 12/26/21 [Rx] Morphine Sulfate Ir [MSIR] 15 mg PO Q4H PRN #42 tab 12/26/21 [Rx] fentaNYL 50MCG/HR PATCH [Duragesic 50MCG/HR] 50 mcg TRANSDERM Q72H 7 Days #7 patch 12/26/21 [Rx] Follow up Appointment(s)/Referral(s): None,Stated [Primary Care Provider] - 1-2 days Activity/Diet/Wound Care/Special Instructions: Diet: Regular Follow-up with your PCP within 1-2 days of discharge. Follow-up with oncology within 1 week of discharge. Take all medications as advised. Discharge Disposition: HOME WITH HOSPICE
[2021-12-26] MEDS ORDERED: LORazepam 1 MG/0.5 ML VIAL IV ONE (11:28)
[2021-12-26 11:48] VITALS: BP 128/82; PULSE 88; RESP 17; TEMP 98.1
== END 2021-12-26 15:21 | disposition hospice, home (50) | DRG 871 ==
LOC: EC 20:12 → 5NMEDONC 12-23 00:05
PROVIDERS: ADMIT Internal Medicine; ATTEND Internal Medicine
PROC: 0W9G3ZZ Drainage of Peritoneal Cavity, Percutaneous Approach (ICD-10-PCS; principal; 2021-12-24)
DX: A41.9 Sepsis, unspecified organism (principal); J18.9 Pneumonia, unspecified organism; E87.2 Acidosis; N17.9 Acute kidney failure, unspecified; R18.8 Other ascites; C15.9 Malignant neoplasm of esophagus, unspecified; C78.7 Secondary malignant neoplasm of liver and intrahepatic bile duct; K72.90 Hepatic failure, unspecified without coma; I10 Essential (primary) hypertension; F32.A Depression, unspecified; D63.0 Anemia in neoplastic disease; G89.29 Other chronic pain; Z51.5 Encounter for palliative care; M54.9 Dorsalgia, unspecified; F41.9 Anxiety disorder, unspecified; E86.0 Dehydration; E16.2 Hypoglycemia, unspecified; E87.6 Hypokalemia; K59.00 Constipation, unspecified; M54.50 Low back pain, unspecified; Z92.21 Personal history of antineoplastic chemotherapy; Z79.899 Other long term (current) drug therapy; Z98.890 Other specified postprocedural states; Z87.891 Personal history of nicotine dependence; Z86.010 Personal history of colon polyps; Z82.0 Family history of epilepsy and other diseases of the nervous system; Z80.8 Family history of malignant neoplasm of other organs or systems
CPT/HCPCS: 36415; 49083; 70450; 71045; 74177; 76705; 80048; 80053; 80306; 80320; 81001; 82042; 82140; 83605; 83690; 83735; 83880; 84157; 84484; 85025; 85027; 85610; 85730; 87040; 87070; 87075; 87205; 87635; 88108; 88305; 88341; 88342; 89050; 93005